=== PATIENT | male | born 1960 | race Caucasian/White ===

== ENCOUNTER 2020-10-08 08:54 | Emergency (ER) | payer MEDICARE, MEDICAID, SELFPAY ==
--- NOTE | ~2020-10-08 | CT_ITS ---
EXAMINATION: CTA LE RT EXAM DATE: 10/08/2020 10:50 INDICATION: infected chronic wound with poor peripheral pulses. Right lower leg skin infection. TECHNIQUE: Spiral CTA right lower extremity was performed following intravenous injection of 150 mL O mnipaque 350. Axial, coronal and sagittal images were reviewed. The dose-length product (DLP) for t his examination was 1238.26 mGy-cm. The exposure was tailored according to patient size (auto mA exp osure control), and iterative reconstruction (ASIR) was used as additional dose reduction technique. There is no prior study for comparison. FINDINGS: Mild aortic and bilateral iliac arterial sclerosis without stenosis. The right femoral, pop liteal arteries are widely patent. There is 3 vessel right runoff to the ankle. Diffuse edema of the calf, and more severe skin thickening circumferentially around the ankle and dalila t. Several surgical clips along the calf and lateral to the lateral malleolus. There are no bony eros ions identified. No focal drainable abscess. No right knee joint extremity. Reactive right inguinal, pelvic lymphadenopathy. Left nephrolithiasis. IMPRESSION: 1. Mild proximal arteriosclerosis. No stenosis, 3 vessel runoff to the right foot. 2. Severe right ankle, foot cellulitis. Reviewed, dictated and finalized at location A. IMPRESSION: 1. Mild proximal arteriosclerosis. No stenosis, 3 vessel runoff to the right f oot. 2. Severe right ankle, foot cellulitis.
[2020-10-08 09:00] VITALS: BP 120/91; PULSE 115; RESP 16; TEMP 36.6; O2SAT 99
--- NOTE | 2020-10-08 09:56 | ED.GENADULT ---
HPI - General Adult General Chief complaint: Extremity Injury, Lower Stated complaint: Right leg pain Time Seen by Provider: 10/08/20 09:00 Source: patient and family Mode of arrival: ambulatory Limitations: no limitations History of Present Illness HPI narrative: Torrey is a 60M with a PMH of an unknown cardiac arrhythmia, CAD, CHF, HTN, COPD, DMII, that presented to clinic with worsening pain, tenderness and exudate from a chronic wound in his right lower extremity. He has had the wound for 2-3 years. He is unsure of the cause. When asked if it is a venous ulcer, arterial ulcer or diabetic wound he just says it had a fungal infection. He can give little history of the wound. However, the wound has appeared worse over the past two weeks with increasing size and exudate. Over the last few days it has has become friable and more painful. He says the leg is its normal size. No CP, SOB, fevers, chills, nausea or vomiting. Related Data Home Medications Medication Instructions Recorded Confirmed albuterol sulfate 2 puff INHALATION PRN 10/08/20 10/08/20 buspirone 30 mg PO BID 10/08/20 10/08/20 carvedilol 25 mg PO BID 10/08/20 10/08/20 citalopram 20 mg PO DAILY 10/08/20 10/08/20 digoxin 250 mcg PO DAILY 10/08/20 10/08/20 furosemide 40 mg PO DAILY 10/08/20 10/08/20 hydrocodone-acetaminophen 1 tablet PO PRN 10/08/20 10/08/20 lisinopril 40 mg PO DAILY 10/08/20 10/08/20 metformin 500 mg PO BID 10/08/20 10/08/20 rivaroxaban [Xarelto] 20 mg PO DAILY 10/08/20 10/08/20 Allergies Allergy/AdvReac Type Severity Reaction Status Date / Time No Known Allergies Allergy Verified 10/08/20 09:35 Review of Systems Constitutional: Constitutional: Reports no additional constitutional complaints, Denies chills and Denies fever(s) Eyes: Eyes: Reports no additional eye complaints ENT: Reports system reviewed and no additional complaints, except as documented Cardiovascular: Cardiovascular: Reports no additional cardiovascular complaints Respiratory: Respiratory: Reports no additional respiratory complaints Gastrointestinal: Gastrointestinal: Reports no additional gastrointestinal complaints Genitourinary: Genitourinary: Reports no additional male genitourinary complaints Musculoskeletal: Musculoskeletal: Reports no additional musculoskeletal complaints Integumentary/Breasts: Skin/Breast: Reports as per HPI Neurologic: Reports system reviewed and no additional complaints, except as documented Psychiatric: Psychiatric: Reports no additional psychiatric complaints Endocrine: Endocrine: Reports no additional endocrine complaints Hematologic/Lymphatic: Hematologic/Lymphatic: Reports no additional hematologic/lymphatic complaints Allergic/Immunologic: Allergic/Immunologic: Reports no additional allergic/immunologic complaints [facility] Social History Social History Substance use type: amphetamines Exam Const: General: no acute distress and alert; No confusion Orientation/consciousness: patient oriented x3 Limitations: No altered mental status HENMT: Head: normal to inspection Other: atrauamtic Eyes: Conjunctivae: conjunctivae normal Pupils: Equal, round and reactive pupils present Neck: Neck: normal visual inspection Chest: Chest palpation & inspection: normal inspection of the chest Resp: Effort & Inspection: normal respiratory effort Auscultation: clear to auscultation bilaterally Cardio: Rate: regular rate Rhythm: regular rhythm GI: Inspection: non-distended GI Palp: Yes Soft to palpation, No Tenderness to palpation present (GI) and No Guarding due to palpation present (GI) Back/Spine/Pelvis: Back: no CVA tenderness Skin: Other: On the right lower extremity there is a large circumferential wound. It starts distal to the malleoli, covers parts of both and wraps completely around. The wound covers the lower extremity circumferentially up the mid calf. Some of the wound
[2020-10-08 09:57] LABS: Basophils Absolute Auto 0.07 K/mm3 (0.00-0.10); Basophils Percent Auto 0.8 % (0.0-1.0); Eosinophils Absolute Auto 0.15 K/mm3 (0.02-0.50); Eosinophils Percent Auto 1.8 % (1.0-6.0); Hematocrit 34.8 % (40.0-54.0); Hemoglobin 9.9 g/dL (14.0-18.0); Immature Granulocyte Absolute 0.04 K/mm3 (0.00-0.00); Immature Granulocyte Percent A 0.5 % (0.0-0.0); Lymphocytes Percent Auto 18.2 % (18.0-42.0); Mean Corpuscular HGB Conc 28.4 g/dL (32.0-36.0); Mean Corpuscular Hemoglobin 18.7 pg (27.0-31.0); Mean Corpuscular Volume 65.8 fL (78.0-102.0); Mean Platelet Volume 9.1 fl (8.7-11.0); Monocytes Absolute Auto 0.67 K/mm3 (0.10-0.90); Monocytes Percent Auto 8.1 % (2.0-11.0); Neutrophils Absolute Auto 5.8 K/mm3 (1.7-7.2); Neutrophils Percent Auto 70.6 % (50.0-70.0); Platelet Count Result 432 K/mm3 (150-420); Red Blood Count 5.29 M/mm3 (4.70-6.10); White Blood Count 8.3 K/mm3 (4.8-10.8)
[2020-10-08] MEDS: HYDROcodone/acetaminophen (*CRX) 5-325 MG TABLET 1 TAB PO ×2 (10:01→13:25)
[2020-10-08 10:13] LABS: Alanine Aminotransferase 17 U/L (16-63); Albumin Level 2.6 g/dL (3.4-5.0); Alkaline Phosphatase 89 U/L (46-116); Anion Gap 9 mmol/L (8-16); Aspartate Amino Transferase 14 U/L (15-37); Bilirubin,Total 0.3 mg/dL (0.00-1.00); Blood Urea Nitrogen 30 mg/dL (7-18); Calcium 8.3 mg/dL (8.5-10.1); Carbon Dioxide 28 mmol/L (21-32); Chloride 99 mmol/L (98-108); Estimated CRCL calculation 61 ml/min; Estimated Glomerular Filt Rate > 60; Glucose 174 mg/dL (70-99); Osmolality Calculated 292 mOsm/kg (285-295); Sodium 136 mmol/L (136-145); Total Protein 7.2 g/dL (6.4-8.2)
[2020-10-08] MEDS: LIDOCAINE HCL 1% LOCAL INJ 20 ML VIAL (11:45)
[2020-10-08] MEDS: KCL 20 MEQ/SW 100 ML 100 ML 50 MEQ IVPB (13:00)
--- NOTE | 2020-10-08 13:12 | PC.NURSE ---
lunch tray provided
--- NOTE | 2020-10-08 13:51 | PC.NURSE ---
pt admits to using methamphetamine several times per week
[2020-10-08 15:00] VITALS: BP 143/90; PULSE 100; RESP 18; O2SAT 97
[2020-10-08 17:13] LABS: SARS-CoV-2 Ag Negative (Negative)
[2020-10-08 17:26] VITALS: BP 127/84; PULSE 113; RESP 16; TEMP 36.6; O2SAT 99
--- NOTE | 2020-10-08 17:27 | PC.NURSE ---
1618 telephone report provided to Ezequiel Milan at [facility] in [place]. gbaas paged out at 1863. room G260 provided by Kayli after negative COVID result was reported
[2020-10-08 18:40] VITALS: BP 124/91; PULSE 111; RESP 15; O2SAT 100
== END 2020-10-08 18:40 | disposition short-term general hospital (02) ==
PROVIDERS: Emergency Provider Family Medicine; PCP Nurse Practitioner Family
DX: S81.801A Unspecified open wound, right lower leg, initial encounter (principal); L03.115 Cellulitis of right lower limb; Z20.822 Contact with and (suspected) exposure to COVID-19
CPT/HCPCS: 36415; 73706; 80053; 85025; 87040; 87070; 87075; 87077; 87205; 87426; 96365; 96366; 99285; A9270; C9803; J2543; J3480; J7030; Q9967

== ENCOUNTER 2021-01-05 09:10 | Emergency (ER) | payer MEDICARE, MEDICAID, SELFPAY ==
--- NOTE | ~2021-01-05 | XR_ITS ---
EXAMINATION: XR chest 1V portable DATE: 01/05/2021 10:43 INDICATION: Vomiting. Fever. Midsternal chest pain. TECHNIQUE: A single frontal view of the chest was obtained on 2 radiographs. COMPARISON: None. FINDINGS: There is no pneumonia, pleural effusion, or pneumothorax. Cardiomegaly is noted. IMPRESSION: 1. Cardiomegaly. Reviewed, dictated and finalized at location B. IMPRESSION: 1. Cardiomegaly.
[2021-01-05 09:10] VITALS: BP 123/87; PULSE 81; RESP 20; TEMP 36.4; O2SAT 100
--- NOTE | 2021-01-05 09:11 | ECG_ITS ---
Measurements Intervals [place] Rate: 105 P: [place]: 0 QRS: 13 QRSD: 118 T: 240 QT: 351 QTc: 464 Interpretive Statements ATRIAL FIBRILLATION WITH RAPID VENTRICULAR RESPONSE INTRAVENTRICULAR CONDUCTION DELAY POSSIBLE LEFT VENTRICULAR HYPERTROPHY ST-T WAVE ABNORMALITY IN LATERAL LEADS- CONSIDER ISCHEMIA BASELINE ARTIFACT- II, III, AVR, AVL,A VF ABNORMAL ECG Electronically Signed On 01-05-2021 9:38:19 CDT by Nish Lock D.O.
--- NOTE | 2021-01-05 09:33 | ED.WEAKNESS ---
HPI - Weakness General Chief complaint: Wound/Laceration Stated complaint: AMBULANCE Time Seen by Provider: 01/05/21 09:11 Source: patient and EMS Mode of arrival: EMS Limitations: no limitations History of Present Illness HPI Narrative: 60-year-old man with a history of type 2 diabetes, congestive heart failure, coronary artery disease and atrial fibrillation brought to the emergency department by EMS after the patient called because he was weak and unable to stand due to bilateral leg pain. He states the wounds on his legs are much worse over the last 2 days and he has had fever, nausea and vomiting during that time. Patient states he has also had cough and cold symptoms but denies abdominal pain, dysuria chest pain or worsening shortness of breath. He states he was ambulating easily before 2 days ago. MD Complaint: generalized weakness Onset (ago): day(s) (3) Duration: constant and progressively worsening Location: generalized Migration: none Relieving factors: none Exacerbating factors: none Associated symptoms: fever/chills and nausea/vomiting Related Data Home Medications Medication Instructions Recorded Confirmed albuterol sulfate 2 puff INHALATION PRN 10/08/20 01/05/21 buspirone 30 mg PO BID 10/08/20 01/05/21 carvedilol 25 mg PO BID 10/08/20 01/05/21 citalopram 20 mg PO DAILY 10/08/20 01/05/21 digoxin 250 mcg PO DAILY 10/08/20 01/05/21 furosemide 40 mg PO DAILY 10/08/20 01/05/21 lisinopril 40 mg PO DAILY 10/08/20 01/05/21 metformin 500 mg PO BID 10/08/20 01/05/21 rivaroxaban [Xarelto] 20 mg PO DAILY 10/08/20 01/05/21 Allergies Allergy/AdvReac Type Severity Reaction Status Date / Time No Known Allergies Allergy Verified 10/08/20 09:35 Review of Systems Review of Systems: All systems reviewed & are unremarkable except as noted in HPI and below Constitutional: Constitutional: Denies chills, Reports fever(s) and Reports weakness ENT: Reports nasal congestion and Denies sore throat Cardiovascular: Cardiovascular: Denies chest pain and Denies radiating jaw, neck or arm pain Respiratory: Respiratory: Reports cough and Reports dyspnea (Chronic) Gastrointestinal: Gastrointestinal: Denies abdominal pain, Reports nausea and Reports vomiting Genitourinary: Genitourinary: Denies dysuria and Denies urinary frequency Musculoskeletal: Musculoskeletal: Reports as per HPI, Denies back pain, Denies arthralgias and Denies joint swelling Integumentary/Breasts: Skin/Breast: Denies pruritus, Denies erythema and Denies rash Neurologic: Denies vertigo, Denies dizziness, Denies syncope, Denies focal weakness and Denies numbness Hematologic/Lymphatic: Hematologic/Lymphatic: Reports easy bleeding and Reports easy bruising Allergic/Immunologic: Allergic/Immunologic: Denies lip swelling and Denies throat swelling [facility] Past Medical History Medical History (Updated 01/05/21 @ 11:55 by Rikki Clarke MD) Atrial fibrillation Congestive heart failure COPD (chronic obstructive pulmonary disease) Coronary artery disease Type 2 diabetes mellitus Social History Social History (Updated 01/05/21 @ 09:53 by Rikki Clarke MD) Smoking status: Former smoker Alcohol intake: former Substance use: current Substance use type: amphetamines Living arrangements: alone Exam Const: General: alert and ill appearing chronically Orientation/consciousness: patient oriented x3 Limitations: no limitations Other: Mild acute distress. HENMT: Head: normal to inspection Face and sinus: normal facial exam Mouth: Yes moist mucous membranes Throat: posterior oropharynx normal Eyes: Conjunctivae: conjunctivae normal Pupils: Equal, round and reactive pupils present EOM: EOMs intact bilaterally Resp: Effort & Inspection: normal respiratory effort and not labored Auscultation: clear to auscultation bilaterally, no rales, no rhonchi and wheezes (Few late expiratory) Cardio: Rate: tachycardic Rhythm: abnormal rhythm irreg
[2021-01-05] MEDS: MORPHINE SULFATE (*CRX) 2 MG/ML INJ IV PUSH (09:43)
[2021-01-05] MEDS: SODIUM CHLORIDE 0.9% IV 1,000 ML 999 ML IV CONT (09:43)
[2021-01-05 09:44] LABS: Basophils Absolute Auto 0.08 K/mm3 (0.00-0.10); Basophils Percent Auto 0.7 % (0.0-1.0); Eosinophils Absolute Auto 0.04 K/mm3 (0.02-0.50); Eosinophils Percent Auto 0.4 % (1.0-6.0); Hematocrit 38.7 % (40.0-54.0); Hemoglobin 10.9 g/dL (14.0-18.0); Immature Granulocyte Absolute 0.06 K/mm3 (0.00-0.00); Immature Granulocyte Percent A 0.5 % (0.0-0.0); Lymphocytes Absolute Auto 1.83 K/mm3 (1.10-4.50); Lymphocytes Percent Auto 16.2 % (18.0-42.0); Mean Corpuscular HGB Conc 28.2 g/dL (32.0-36.0); Mean Corpuscular Hemoglobin 18.9 pg (27.0-31.0); Mean Platelet Volume 9.1 fl (8.7-11.0); Monocytes Absolute Auto 0.74 K/mm3 (0.10-0.90); Monocytes Percent Auto 6.6 % (2.0-11.0); Neutrophils Absolute Auto 8.5 K/mm3 (1.7-7.2); Neutrophils Percent Auto 75.6 % (50.0-70.0); Platelet Count Result 496 K/mm3 (150-420); Red Blood Count 5.78 M/mm3 (4.70-6.10); Red Cell Distribution Width 20.4 % (11.6-14.4); White Blood Count 11.3 K/mm3 (4.8-10.8)
[2021-01-05 09:59] LABS: INR 1.1; Partial Thromboplastin Time 26.2 SEC (23.90-30.70); Prothrombin Time 11.4 Seconds (9.50-12.10)
[2021-01-05 10:02] LABS: Lactic Acid Reflex 2.4 mmol/L (0.4-2.0)
[2021-01-05 10:03] LABS: Alanine Aminotransferase 24 U/L (16-63); Albumin Level 3.1 g/dL (3.4-5.0); Alkaline Phosphatase 97 U/L (46-116); Anion Gap 18 mmol/L (8-16); Aspartate Amino Transferase 19 U/L (15-37); Bilirubin,Total 0.4 mg/dL (0.00-1.00); Blood Urea Nitrogen 44 mg/dL (7-18); CRP 6.4 mg/dL (0.0-0.9); Carbon Dioxide 20 mmol/L (21-32); Chloride 97 mmol/L (98-108); Estimated Glomerular Filt Rate 31; Glucose 113 mg/dL (70-99); Influenza Control Valid (Valid); Osmolality Calculated 292 mOsm/kg (285-295); Potassium 3.4 mmol/L (3.5-5.1); Sodium 135 mmol/L (136-145); Total Protein 8.3 g/dL (6.4-8.2); Troponin I 15.1 ng/L (0.00-60.4)
[2021-01-05 10:04] LABS: SARS-CoV-2 Ag Negative (Negative)
[2021-01-05] MEDS: ASPIRIN 81 MG CHEWABLE TABLET 324 MG PO (10:10)
[2021-01-05 10:36] LABS: NT Pro B Type Natriuretic Pept 17814 pg/mL (0-125)
[2021-01-05 10:45] VITALS: BP 116/89; PULSE 99; O2SAT 100
--- NOTE | 2021-01-05 11:11 | PC.NURSE ---
CALL PLACED TO [facility], TRANSFER DECLINED - CALL PLACED TO [facility] FOR POSSIBLE TRANSFER - PT REFUSING URINE SAMPLE
--- NOTE | 2021-01-05 12:13 | PC.NURSE ---
PT HAS BEEN ACCEPTED AT [facility] - WILL AWAIT BED ASSIGNMENT
[2021-01-05 12:16] VITALS: BP 138/62; PULSE 92; O2SAT 100
[2021-01-05 12:35] LABS: Reflex Lactic Acid Yes or No Add Lactic
[2021-01-05 12:54] LABS: Troponin I 14.6 ng/L (0.00-60.4)
[2021-01-05 13:18] LABS: Lactic Acid 1.5 mmol/L (0.4-2.0)
[2021-01-05 13:20] VITALS: BP 138/63; PULSE 92; RESP 17; O2SAT 100
[2021-01-05] MEDS: MORPHINE SULFATE (*CRX) 4 MG/ML INJ (13:39)
[2021-01-05 13:41] LABS: Appearance Urine Clear (Clear); Bilirubin Urine Negative (Negative); Color Urine Light Yellow (Yellow); Glucose Urine UA Negative (Negative); Ketones Urine Negative (Negative); Leukocyte Esterase Ur Negative LEU/UL (Negative); Nitrate Urine Negative (Negative); Protein Urine Trace (Negative); Urobilinogen Urine 0.2 mg/dL (0.2-1.0)
--- NOTE | 2021-01-05 13:44 | PC.NURSE ---
SOWMYA LOPEZ FOR 4 MG MORPHINE GIVEN
[2021-01-05 13:54] LABS: Amphetamine Screen Urine Positive (Negative); Barbiturate Screen Urine Negative (Negative); Benzodiazepines Screen Urine Negative (Negative); Cannabinoid Screen Urine Negative (Negative); Cocaine Screen Urine Negative (Negative); Methadone Screen Urine Negative (Negative); Opiate Screen Urine Positive (Negative); Phencyclidine Screen Urine Negative (Negative)
[2021-01-05 14:25] LABS: Add Urine Microscopic? YES; Blood Urine Trace-Intact (Negative); Squamous Epithelial Cell Urine Few /hpf (Few); WBC Urine 0-3 /hpf (0-3)
[2021-01-05 14:26] LABS: Bacteria Urine 2+ /hpf
[2021-01-05 14:27] LABS: Other Sediment Urine Spermatazoa /hpf
== END 2021-01-05 13:55 | disposition short-term general hospital (02) ==
PROVIDERS: Emergency Provider Emergency Medicine; PCP Nurse Practitioner Family
DX: L03.119 Cellulitis of unspecified part of limb (principal); N17.9 Acute kidney failure, unspecified; R07.89 Other chest pain; E11.9 Type 2 diabetes mellitus without complications; I50.9 Heart failure, unspecified; I25.10 Atherosclerotic heart disease of native coronary artery without angina pectoris; I48.91 Unspecified atrial fibrillation; Z79.899 Other long term (current) drug therapy; Z20.822 Contact with and (suspected) exposure to COVID-19
CPT/HCPCS: 36415; 71045; 80053; 80307; 81001; 83605; 83880; 84484; 85025; 85610; 85730; 86140; 87040; 87070; 87147; 87205; 87426; 87804; 93005; 96361; 96365; 96375; 96376; 99285; A9270; C9803; J0696; J2270; J7030

== ENCOUNTER 2021-01-23 12:32 | Emergency (ER) | payer MEDICARE, MEDICAID, SELFPAY ==
--- NOTE | ~2021-01-23 | CT_ITS ---
EXAMINATION: CT brain wo con EXAM DATE: 01/23/2021 13:00 INDICATION: Unresponsive episode. TECHNIQUE: Spiral CT of the head was performed without contrast. Axial, coronal and sagittal images were reviewed. The dose-length product (DLP) for this examination was 1210.67 mGy-cm. The exposure was tailored according to patient size, and iterative reconstruction (ASIR) was used as additional do se reduction technique. There is no prior study for comparison. FINDINGS: There is no acute intraparenchymal hemorrhage. No evidence of intraparenchymal brain mass lesion. No evidence of acute infarction. Please note that initial head CT has limited sensitivity f or small or acute infarctions. There is mild periventricular and subcortical hypodensity, nonspecific but probably related to small vessel ischemic disease. There is mild prominence of the sulci and v entricles related to cerebral atrophy. There is intracranial carotid arteriosclerosis. There are n o extra-axial collections. There is no mass effect or midline shift. The orbits are unremarkable. Soft tissue is unremarkable. The visualized sinuses and mastoid air cells are well aerated. IMPRESSION: 1. No acute intracranial findings. 2. Chronic age related findings. Reviewed, dictated and finalized at location B.
--- NOTE | ~2021-01-23 | CT_ITS ---
EXAMINATION: CT abdomen pelvis w con EXAM DATE: 01/23/2021 14:45 INDICATION: AMS, pain with leg movement AMS, Pain With Leg Movement ,Unresponsive. TECHNIQUE: Spiral CT of the abdomen and pelvis was performed following intravenous injection of 100 m L Omnipaque 350. Axial, coronal and sagittal images of the abdomen and pelvis were reviewed. The do se-length product (DLP) for this examination was 1346.16 mGy-cm. The exposure was tailored according to patient size (auto mA exposure control), and iterative reconstruction (ASIR) was used as addition al dose reduction technique. There is no prior study for comparison. FINDINGS: The liver, spleen, adrenal glands and pancreas are unremarkable. Gallbladder is unremarkab le. No biliary obstruction. Portal and splenic veins are patent. Kidneys enhance symmetrically. T here is no hydronephrosis. Numerous left renal cysts up to about 1.5 cm. The prostate is unremarkabl e. there is Dubon catheter within the bladder. Bladder wall thickening, acute or chronic cystitis. Several borderline sized right inguinal, pelvic lymph nodes probably reactive. There is mild scatter ed arteriosclerotic disease. There are no findings to suggest appendicitis. The stomach and small bowel are unremarkable. There is expected amount of colonic stool. No free intraperitoneal gas. There is cardiomegaly. The johnathan g bases are unremarkable. There are no osteoblastic or osteolytic lesions identified. There is front line supervisor edmond bilateral L5 spondylolysis with grade 2 anterolisthesis L5 on S1 and moderate to severe disc dise ase. At L4-5 there is grade 1 retrolisthesis with moderate to severe disc disease. There is severe le ft hip osteoarthritis. IMPRESSION: 1. No acute intra-abdominal findings. 2. Multiple large left calyceal stones. 3. Bladder wall thickening, acute or chronic cystitis. Dubon in position. 4. L5 spondylolysis, grade 2 anterolisthesis. 5. Severe left hip osteoarthritis. 6. Cardiomegaly. Reviewed, dictated and finalized at location B.
--- NOTE | ~2021-01-23 | XR_ITS ---
EXAMINATION: XR chest 1V portable DATE: 01/23/2021 13:27 INDICATION: Shortness of breath. Altered mental status. TECHNIQUE: frontal view of the chest was obtained. COMPARISON: Chest radiograph dated 01/05/2021 FINDINGS: New mild elevation of the left hemidiaphragm. Lungs remain clear with no focal airspace opacities, pu lmonary edema, pleural effusion or pneumothorax. Cardiomegaly. Mediastinal silhouette is normal. Mode rate degenerative skeletal changes at the bilateral shoulders. IMPRESSION: 1. New mild elevation left hemidiaphragm. 2. Cardiomegaly. Reviewed, dictated and finalized at location A.
[2021-01-23 12:32] VITALS: PULSE 96; RESP 10; TEMP 35.9; O2SAT 100
[2021-01-23] MEDS: SODIUM CHLORIDE 0.9% IV 1,000 ML 999 ML IV CONT (12:33)
--- NOTE | 2021-01-23 12:33 | ECG_ITS ---
Measurements Intervals [place] Rate: 102 P: [place]: 0 QRS: 46 QRSD: 122 T: -71 QT: 383 QTc: 500 Interpretive Statements ATRIAL FIBRILLATION WITH RAPID VENTRICULAR RESPONSE INTRAVENTRICULAR CONDUCTION DELAY DELAYED PRECORDIAL R/S TRANSITION ST-T WAVE ABNORMALITY IN ANTEROLAT/INF LEADS- CONSIDER ISCHEMIA BASELINE ARTIFACT- I, II, III, AVR, AVL, AVF, V1-V6 ABNORMAL ECG Electronically Signed On 01-23-2021 17:07:57 CDT by Nish Lock D.O.
[2021-01-23 12:40] VITALS: BP 102/76; PULSE 96; RESP 10; O2SAT 100
--- NOTE | 2021-01-23 12:41 | ED.AMS ---
HPI - Altered Mental Status General Chief Complaint: Altered Mental Status Stated Complaint: AMBULANCE Time Seen by Provider: 01/23/21 12:32 Source: EMS Mode of arrival: EMS Limitations: altered mental status History of Present Illness HPI narrative: 61-year-old man with a history of type 2 diabetes, hypertension, atrial fibrillation and methamphetamine use brought to the emergency department by EMS today after home health nurse found him with altered mental status namely poorly responsive. He would only withdraw to pain. EMS stated that after he received 4 mg of naloxone the patient seemed to wake up and become more Combative, yet still unintelligible. Last known well as 4:00 a.m. today. Patient was seen here on January 05 and transferred to [facility] for bilateral lower extremity wounds that appeared infected. complaint: altered mental status Onset (ago): hour(s) Severity: severe Consistency of symptoms: constant Context: drug abuse, diabetes and other ( Chronic lower extremity wounds) Treatments prior to arrival: IV fluid and other ( naloxone) Related Data Home Medications Medication Instructions Recorded Confirmed albuterol sulfate 2 puff INHALATION PRN 10/08/20 01/23/21 buspirone 30 mg PO BID 10/08/20 01/23/21 carvedilol 25 mg PO BID 10/08/20 01/23/21 citalopram 20 mg PO DAILY 10/08/20 01/23/21 digoxin 250 mcg PO DAILY 10/08/20 01/23/21 furosemide 40 mg PO DAILY 10/08/20 01/23/21 lisinopril 40 mg PO DAILY 10/08/20 01/23/21 metformin 500 mg PO BID 10/08/20 01/23/21 rivaroxaban [Xarelto] 20 mg PO DAILY 10/08/20 01/23/21 Allergies Allergy/AdvReac Type Severity Reaction Status Date / Time No Known Allergies Allergy Verified 10/08/20 09:35 Review of Systems Review of Systems: ROS unobtainable: Yes unobtainable due to mental status PMFSH Past Medical History Medical History (Updated 01/23/21 @ 23:10 by Rikki Clarke MD) Atrial fibrillation Chronic anticoagulation Congestive heart failure COPD (chronic obstructive pulmonary disease) Coronary artery disease Type 2 diabetes mellitus Social History Social History Smoking status: Former smoker Alcohol intake: former Substance use: current Substance use type: amphetamines Exam Const: General: healthy appearing Limitations: no limitations Other: moderate acute distress. Patient follows directions including squeezing both hands, raising arms and raising legs individually. Patient attempts to answer verbal questions however has mostly unintelligible. HENMT: Ears: external ears normal, TM's normal bilaterally and EAC's normal Face and sinus: normal facial exam Mouth: Yes dry mucous membranes Throat: posterior oropharynx normal Eyes: Other: pupils 2 mm and sluggish bilaterally Chest: Chest palpation & inspection: normal inspection of the chest Resp: Effort & Inspection: labored ( Mildly) and no retractions Auscultation: no rales, no rhonchi and no wheezes Cardio: Rate: tachycardic Rhythm: abnormal rhythm regularly irregular GI: GI Palp: Yes Soft to palpation and No Tenderness to palpation present (GI) Skin: General skin exam: no jaundice and pallor Neuro: General: moves all extremities, no focal motor deficits and CN's II-XI intact bilaterally Speech: Abnormal speech present slurred Extrem: General: edema ( 1 to 2+ pedal) bilateral Psych: Appearance: grossly normal and well kempt Affect: Anxious affect present Course Course Emergency Course: 1530: Discussed findings with Dr. Carpenter, neurology/stroke physician at [facility]. Stated that there is low likelihood, given his findings and his last normal, that he would benefit from intervention and thus was not a good candidate for transfer. [facility], [facility], [facility], and [facility] system have all told us they have no beds. 1800: Patient has become much more active and is c
[2021-01-23 13:09] LABS: Basophils Absolute Auto 0.04 K/mm3 (0.00-0.10); Basophils Percent Auto 0.8 % (0.0-1.0); Eosinophils Absolute Auto 0.06 K/mm3 (0.02-0.50); Eosinophils Percent Auto 1.2 % (1.0-6.0); Hemoglobin 9.7 g/dL (14.0-18.0); Immature Granulocyte Absolute 0.02 K/mm3 (0.00-0.00); Immature Granulocyte Percent A 0.4 % (0.0-0.0); Lymphocytes Absolute Auto 0.94 K/mm3 (1.10-4.50); Lymphocytes Percent Auto 19.1 % (18.0-42.0); Mean Corpuscular HGB Conc 28.5 g/dL (32.0-36.0); Mean Corpuscular Hemoglobin 21.2 pg (27.0-31.0); Mean Corpuscular Volume 74.2 fL (78.0-102.0); Mean Platelet Volume 9.2 fl (8.7-11.0); Monocytes Absolute Auto 0.71 K/mm3 (0.10-0.90); Monocytes Percent Auto 14.5 % (2.0-11.0); Neutrophils Absolute Auto 3.1 K/mm3 (1.7-7.2); Platelet Count Result 272 K/mm3 (150-420); Red Blood Count 4.58 M/mm3 (4.70-6.10); Red Cell Distribution Width 27.9 % (11.6-14.4); White Blood Count 4.9 K/mm3 (4.8-10.8)
[2021-01-23 13:13] LABS: Add Urine Microscopic? NO; Appearance Urine Clear (Clear); Bilirubin Urine Negative (Negative); Blood Urine Negative (Negative); Color Urine Light Yellow (Yellow); Glucose Urine UA Negative (Negative); Ketones Urine Negative (Negative); Leukocyte Esterase Ur Negative LEU/UL (Negative); Nitrate Urine Negative (Negative); Protein Urine Negative (Negative); Specific Grav Ur 1.025 (1.010-1.020); Urobilinogen Urine 0.2 mg/dL (0.2-1.0)
[2021-01-23 13:24] LABS: Amphetamine Screen Urine Positive (Negative); Barbiturate Screen Urine Negative (Negative); Benzodiazepines Screen Urine Negative (Negative); Cannabinoid Screen Urine Negative (Negative); Cocaine Screen Urine Negative (Negative); Methadone Screen Urine Negative (Negative); Opiate Screen Urine Negative (Negative); Phencyclidine Screen Urine Negative (Negative)
[2021-01-23 13:29] LABS: Base Excess ABG -6.2 mmol/L (0-2); HCO3 ABG 18.2 mmol/L (23-29); Oxygen Saturation ABG 97.6 % (95-97); Oxyhemoglobin 96.7 % (94-100); PO2 ABG 129.1 mmHg (80-90); Total Hemoglobin 10.1 g/dL (12.0-18.0); pH ABG 7.37 (7.35-7.45)
[2021-01-23 13:29] LABS: Lactic Acid Reflex 1.6 mmol/L (0.4-2.0)
[2021-01-23 13:30] LABS: Device NASAL CANNULA; Modified Allen's Test Pass; Site Drawn RIGHT RADIAL
[2021-01-23] MEDS: NALOXONE HCL INJ 2 MG/2 ML AMP IV PUSH (13:38)
[2021-01-23 13:42] LABS: Alanine Aminotransferase 27 U/L (16-63); Albumin Level 2.5 g/dL (3.4-5.0); Alkaline Phosphatase 54 U/L (46-116); Anion Gap 10 mmol/L (8-16); Aspartate Amino Transferase 23 U/L (15-37); Bilirubin,Total 0.2 mg/dL (0.00-1.00); Blood Urea Nitrogen 26 mg/dL (7-18); Calcium 7.9 mg/dL (8.5-10.1); Carbon Dioxide 24 mmol/L (21-32); Chloride 108 mmol/L (98-108); Creatine Kinase 124 U/L (39-308); Estimated Glomerular Filt Rate 53; Ethanol 3 mg/dL (0-6); Glucose 114 mg/dL (70-99); Osmolality Calculated 299 mOsm/kg (285-295); Salicylate 0.8 mg/dL (2.8-20.0); Sodium 142 mmol/L (136-145); Thyroid Stimulating Hormone 3.67 uIU/mL (0.36-3.74); Total Protein 6.2 g/dL (6.4-8.2); Troponin I 11.8 ng/L (0.00-60.4)
[2021-01-23 13:46] LABS: Acetaminophen < 2 ug/mL (10-30)
[2021-01-23 13:48] LABS: NT Pro B Type Natriuretic Pept 2600 pg/mL (0-125)
[2021-01-23] MEDS: SODIUM CHLORIDE 0.9% IV 1,000 ML 200 ML IV CONT (13:51)
[2021-01-23 13:53] LABS: SARS-CoV-2 Ag Positive (Negative)
--- NOTE | 2021-01-23 15:13 | PC.NURSE ---
Phone call received from person stating that she is pts field care manager asking if we have pts maria c. Person on phone told that I was unsure at this time, but that we were looking to find out which home health agency has been caring for pt. Person on phone states she does not know which agency and that she only knows that it is out [place]. When asked who was calling, person on phone states she is pts and her name is Karen Fernández. Call transfered to Dr. Clarke to speak with Karen.
[2021-01-23 15:50] LABS: CRP 5.3 mg/dL (0.0-0.9)
[2021-01-23 15:54] LABS: INR 1.1; Prothrombin Time 11.9 Seconds (9.50-12.10)
[2021-01-23 15:57] LABS: D Dimer 0.81 mg/L (0.19-0.50)
--- NOTE | 2021-01-23 15:58 | PC.NURSE ---
[facility] TRANSFER LINE CONTACTED AT 1509. NO BEDS AVAILABLE, PATIENT PLACED ON WAITLIST BUT TRANSFER LINE STATES TO START LOOKING FOR SOMEWHERE ELSE BECAUSE IT IS UNLIKELY THAT THEY WILL HAVE AN AVAILABILITY ANY TIME SOON. [facility] TRANSFER LINE, GABRIELA, CONTACTED AT 1521. CALL BACK AT [address] [facility] DECLINES TO ACCEPT PATIENT [facility] TRANSFER LINE, TIMOTHY, CONTACTED AT 1530 WHO STATES THERE ARE NO AVAILABLE BEDS IN THE [facility] AND THEY WILL NOT BE ACCEPTING WAIT LIST PATIENTS. [facility] TRANSFER LINE, MARIVEL, CONTACTED AT 1531. DR. JOSE, NEUROLOGIST, SPOKE WITH STEPHEN, DR. LOPEZ. DR. JOSE STATES THERE IS NO INTERVENTION INDICATED AND PATIENT DOES NOT NEED TO BE TRANSFERRED TO U. MAGALY BRAILLE PROOFREADER CONTACTED AT 8185. AWAITING CALL BACK FOR POTENTIAL TRANSFER.
[2021-01-23 16:30] LABS: Troponin I 12.4 ng/L (0.00-60.4)
--- NOTE | 2021-01-23 16:36 | PC.NURSE ---
case mgr at [facility] contacts RN to inform her that patient was discharged with LifeVest for ejection fraction of 15%. pt did not arrive to ED with LifeVest on. RN attempted to contact dray truck driver/roomate Karen to get the LifeVest, voicemail left, awaiting call back. [employer] Shane contacted who states he will attempt to pull reports and contact us back.
--- NOTE | 2021-01-23 16:49 | PC.NURSE ---
SUSI LUNA CONTACTED FOR INFORMATION REGARDING HOME HEALTH CARE AND EVENTS LEADING UP TO TODAYS ER VISIT. AWAITING CALL BACK FROM HOME HEALTH NURSEMIC.
--- NOTE | 2021-01-23 16:50 | PC.NURSE ---
ZOLL METAL STAMPING MACHINE OPERATOR, SABINA, CONTACTED ED AT THIS TIME. SABINA STATES PATIENT HAS WORN LIFEVEST FOR A TOTAL OF 2 HOURS AND 44 MINUTES SINCE RECEIVING IT ON December AND HAS NOT PUT IT BACK ON SINCE December. THEREFORE THERE IS NO DATA OR EVENTS RECORDED TO SEND TO ED. ERP NOTIFIED.
--- NOTE | 2021-01-23 17:08 | PC.NURSE ---
PARKER BARNES RN CONTACTED FOR ER HOLD PLACEMENT. ROOM 206 PROVIDED.
--- NOTE | 2021-01-23 17:23 | PC.NURSE ---
VITAL SIGNS PRINT OUT PLACED IN THE PAPER CHART
[2021-01-23] MEDS: LORazepam INJ (*CRX) 2 MG/ML VIAL 0.5 MG IV PUSH (18:03)
[2021-01-23 18:30] VITALS: BP 130/110; PULSE 115; RESP 19; TEMP 36.2; O2SAT 100
--- NOTE | 2021-01-23 18:38 | PC.NURSE ---
PT TO BE TRANSFERRED TO ROOM 207 ER HOLD WHILE AWAITING BED AT [facility] IMU FLOOR. TELEPHONE REPORT PROVIDED TO PARKER BARNES RN. PT TO BE TRANSFERRED BY STRETCHER WITH ALL BELONGINGS BY RT JUANA.
[2021-01-23 19:24] LABS: Magnesium 1.7 mg/dL (1.8-2.4); Phosphorus 3.3 mg/dL (2.6-4.7)
[2021-01-23 19:39] LABS: Troponin I 13.5 ng/L (0.00-60.4)
[2021-01-23 19:41] LABS: Digoxin < 0.2 ng/mL (0.9-2.0)
--- NOTE | 2021-01-23 21:53 | PC.NURSE ---
Resumed care of patient 1899, patient ER hold to [facility] awaiting a bed. patient responds to name, nonverbal, follows simple commands, on 3 liters oxygen, 98%, vital signs stable, miller catheter intact and 2 peripheral iv's intact, dressings intact to bilateral legs, legs elevated on pillows, will continue to monitor.
[2021-01-23] MEDS: busPIRone HCL 5 MG TABLET 30 MG PO (22:10)
[2021-01-23] MEDS: carvediloL 12.5 MG TABLET 25 MG PO (22:11)
[2021-01-23] MEDS: MAGNESIUM SULF 2 GM/WATER 50ML 2 GM/50 ML BAG IVPB (22:12)
[2021-01-23] MEDS: DEXTROSE 5%/0.9% SOD CHL 1,000 ML 70 ML IV CONT (22:13)
[2021-01-23 23:33] VITALS: BP 103/77; PULSE 105; RESP 20; TEMP 36.6; O2SAT 95
--- NOTE | 2021-01-23 23:55 | PC.NURSE ---
Called [facility] to transport patient to [facility].
--- NOTE | 2021-01-24 00:05 | PC.NURSE ---
Patient going to room 232 at [facility] report given to nurse Brody at [phone], vital signs 103/77, 20, 36.7, 95%, 2 liters per nasal cannula of oxygen. patient alert to self. garbled speech follows simple commands. ambulance called for transport to [place] by charge nurse. will continue to monitor.
--- NOTE | 2021-01-24 00:42 | PC.NURSE ---
Patient telemetry box removed and patient discharged to [facility] at 1230 via EMS.
== END 2021-01-24 00:30 | disposition short-term general hospital (02) ==
LOC: CHSED 16:53 → CHS2ND 19:12
PROVIDERS: Emergency Provider Emergency Medicine; PCP Nurse Practitioner Family
DX: U07.1 COVID-19 (principal); R47.1 Dysarthria and anarthria; Z79.01 Long term (current) use of anticoagulants; I50.9 Heart failure, unspecified; I48.91 Unspecified atrial fibrillation; J44.9 Chronic obstructive pulmonary disease, unspecified; I25.10 Atherosclerotic heart disease of native coronary artery without angina pectoris; E11.9 Type 2 diabetes mellitus without complications; Z87.891 Personal history of nicotine dependence; Z79.899 Other long term (current) drug therapy
CPT/HCPCS: 36415; 36600; 70450; 71045; 74177; 80053; 80162; 80307; 81003; 82550; 82805; 83605; 83735; 83880; 84100; 84443; 84484; 85025; 85380; 85610; 85730; 86140; 87040; 87086; 87426; 93005; 96361; 96365; 96375; 99285; A9270; C9803; J2060; J2310; J3475; J7030; J7042; Q9967

== ENCOUNTER 2021-01-24 01:20 | Inpatient (IN) | payer MEDICARE, MEDICAID, SELFPAY ==
[2021-01-24] VITALS (12 sets, daily range): BP systolic 95–144; BP diastolic 43–118; PULSE 75–114; RESP 16–24; TEMP 36.4–37.3; O2SAT 95–100; BMI 29.6
--- NOTE | 2021-01-24 | ECHO_ITS ---
Patient Info Name: Torrey Fernández Age: 61 years : 1960 Gender: Male Ht: 71 in Wt: 220 lbs BSA: 2.26 m2 HR: 107 bpm BP: 133 / 43 mmHg Heart Rhythm: Atrial Fibrillation Technical Quality: Good Exam Date: 01/24/2021 8:34 AM Exam Location: [facility] Pulmonary Patient Status: Outpatient Admit Date: 01/24/2021 Staff Ordering Physician: Indiana Leiva MD Internal Revenue Service Agent: Yareli Cr [facility] Attending Provider: Luis Diaz MD Referring Physician: Abbie MIGUEL; Exam Type: CA echo doppler color flow Study Info Complete two-dimensional, color flow and Doppler transthoracic echocardiogram is performed. Summary 1. Complete two-dimensional, color flow and Doppler transthoracic echocardiogram is performed. 2. Left ventricular chamber dimension is severely enlarged. 3. Left ventricular systolic function is severely reduced, estimated at 30-35%. 4. Left ventricular septal wall motion is abnormal with septal motion related to bundle branch block. 5. The left ventricular diastolic function is abnormal. 6. Average E' 0.14 suggestive of diastolic dysfunction. 7. Atrial fibrillation. 8. Left atrial chamber dimension is severely enlarged. 9. Right atrial chamber dimension is severely enlarged. 10. There is trace aortic valve regurgitation. 11. The mitral valve has mildly calcified annulus. 12. There is mild to moderate mitral valve regurgitation. 13. There is mild tricuspid valve regurgitation. 14. No pulmonary hypertension, estimated pulmonary arterial systolic pressure is 27 mmHg. 15. There is trace pulmonic regurgitation. Left Ventricle Average E' 0.14 suggestive of diastolic dysfunction. Atrial fibrillation. Left ventricular chamber dimension is severely enlarged. Left ventricular systolic function is severely reduced, estimated at 30-35%. Left ventricular septal wall motion is abnormal with septal motion related to bundle branch block. The left ventricular diastolic function is abnormal. Right Ventricle Right ventricular systolic function is normal and with normal TAPSE 2.3 cm. Right ventricular chamber dimension is normal. Left Atria Left atrial chamber dimension is severely enlarged. Right Atria Right atrial chamber dimension is severely enlarged. Aortic Valve The aortic valve is trileaflet. There is no aortic valve stenosis. There is trace aortic valve regurgitation. Pulmonic Valve There is trace pulmonic regurgitation. Mitral Valve The mitral valve has mildly calcified annulus. There is no mitral valve stenosis. There is mild to moderate mitral valve regurgitation. Tricuspid Valve There is mild tricuspid valve regurgitation. No pulmonary hypertension, estimated pulmonary arterial systolic pressure is 27 mmHg. Pericardium/Pleural There is no pericardial effusion. Inferior Vena Cava Normal inferior vena cava with >50% collapse upon inspiration consistent with normal right atrial pressure, 5 mmHg. Aorta The aortic root size at the sinus of Valsalva is normal. Left Ventricular Outflow Tract Name Value Normal LVOT 2D LVOT Diameter 2.4 cm LVOT Doppler LVOT Peak
--- NOTE | ~2021-01-24 | XR_ITS ---
EXAMINATION: XR chest 1V portable DATE: 01/24/2021 08:19 INDICATION: Transient alteration of awareness. Shortness of breath. TECHNIQUE: frontal view of the chest was obtained. COMPARISON: Chest radiograph dated 01/23/2021 FINDINGS: Cardiomegaly with interval development of pulmonary vascular congestion but without minh pulmonary e gabriel. Persistent elevation of the left hemidiaphragm with mild linear discoid atelectasis in the left lower lung zone. No other airspace opacities, pleural effusion or pneumothorax. IMPRESSION: 1. Cardiomegaly with increasing pulmonary vascular congestion but without minh pulmonary edema. Reviewed, dictated and finalized at location A.
--- NOTE | ~2021-01-24 | MR_ITS ---
EXAMINATION: MR brain/brain stem wo/w con DATE: 01/24/2021 12:38 INDICATION: Transient alteration of awareness and slurred speech. Assess for stroke. TECHNIQUE: Magnetic resonance imaging (MRI) of the brain and brainstem was performed without and with 20 mL Multihance intravenous contrast. Sequences included sagittal and axial T1-weighted SE, axial d iffusion-weighted FS SE, axial T2*-weighted GRE, axial T2-weighted FLAIR, and axial T2-weighted FSE. Postcontrast axial and coronal T1-weighted SE was obtained. Apparent diffusion coefficient (ADC) maps were created. COMPARISON: Head CT dated 01/23/2021 FINDINGS: There are no areas of restricted diffusion to suggest acute infarction. No intracranial hemorrhage or abnormal intracranial mass lesion. Minimal periventricular nonspecific increased T2-weighted signal intensity in the cerebral white matter which is within normal limits for age. There are no intraparen chymal signal abnormalities seen on the other pulse sequences. The ventricles are symmetric and ramy l in size. There are no abnormal extra-axial fluid collections. Flow voids are seen in the cerebral a rteries on the T2-weighted sequences consistent with their expected patency. Visualized orbits and so ft tissues are unremarkable. There are no areas of abnormal enhancement on the post contrast images a lthough postcontrast images are moderately limited by significant amount of motion artifact. IMPRESSION: 1. Normal aging brain. No acute intracranial process. Reviewed, dictated and finalized at location A.
--- NOTE | ~2021-01-24 | MR_ITS ---
EXAMINATION: MR ankle RT wo/w con DATE: 01/25/2021 10:47 INDICATION: Soft tissue infection. Osteomyelitis. TECHNIQUE: Magnetic resonance imaging (MRI) of the right ankle ankle initially planned as a pre and p ostcontrast study was performed without intravenous contrast. The request of the patient the study wa s terminated following acquisition of only the localizer images and axial T1-weighted FS FSE sequence . No intravenous contrast was administered. COMPARISON: Right lower limb CT angiogram dated 10/08/2020 FINDINGS: Very limited study which was terminated prior to obtaining the majority the plan sequences including part to administration of intravenous contrast. A shallow skin ulceration is seen at the medial aspec t of the heel. There is homogeneous T1 marrow fat signal on the channel marketing coordinator localizer images which appears to homogeneously saturated on the axial T1 fat-saturated images with no suggestion of a marrow replac ing process to suggest osteomyelitis. There are few foci of magnetic field artifact associated with m etallic surgical clips on the prior CT. The visualized portions of the flexor and extensor tendons ap pear normal. Joint spaces at the ankle and hindfoot appear normal with no evident joint effusion. IMPRESSION: 1. Very limited study prematurely by the patient but without evident marrow signal changes to suggest osteomyelitis at the posterior tuberosity of the calcaneus underlying a shallow skin ulceration Reviewed, dictated and finalized at location A. IMPRESSION: 1. Very limited study prematurely by the patient but without evident marrow sig nal changes to suggest osteomyelitis at the posterior tuberosity of the calcane us underlying a shallow skin ulceration
--- NOTE | ~2021-01-24 | US_ITS ---
EXAMINATION: US carotid duplex BI DATE: 01/24/2021 13:00 INDICATION: Altered mental status TECHNIQUE: Grayscale, color Doppler, and pulsed Doppler images of the cervical carotid arteries were obtained. The degree of vessel stenosis is placed in one of the following categories: normal, <50%, 5 0-69%, >=70% but less than near-occlusion, near-occlusion, or total occlusion. Note that percent sten osis relative to normal distal artery lumen diameter is indirectly measured from velocity measurement s as described by Louis, et al. Radiology 2003; [id number]. COMPARISON: None. FINDINGS: RIGHT: The right common carotid artery (CCA) peak systolic velocity (PSV) is 74 cm/s. The right internal car otid artery (ICA) PSV is 86 cm/s. The right ICA end-diastolic velocity (EDV) is 14 cm/s. The right IC A/CCA PSV ratio is 1.2. Grayscale and color Doppler images yield an estimate of <50% diameter reducti on from plaque in the ICA. The external carotid artery (ECA) PSV is 76 cm/s. There is antegrade flow in the right vertebral artery. LEFT: The left CCA PSV is 79 cm/s. The left ICA PSV is 75 cm/s. The left ICA EDV is 24 cm/s. The left ICA/C CA PSV ratio is 0.9. Grayscale and color Doppler images yield an estimate of <50% diameter reduction from plaque in the ICA. The ECA PSV is 133 cm/s. There is antegrade flow in the left vertebral artery . IMPRESSION: 1. <50% stenosis from minimal plaque in the right internal carotid artery. 2. <50% stenosis from minimal plaque in the left internal carotid artery. 3. Cardiac arrhythmia is present. Correlate with EKG. Reviewed, dictated and finalized at location A.
--- NOTE | 2021-01-24 01:24 | ECG_ITS ---
Measurements Intervals [place] Rate: 65 P: [place]: 0 QRS: -15 QRSD: 114 T: 145 QT: 343 QTc: 359 Interpretive Statements ATRIAL FIBRILLATION INTRAVENTRICULAR CONDUCTION DELAY ST-T WAVE ABNORMALITY IN LAT/HIGH LAT LEADS- CONSIDER ISCHEMIA BASELINE ARTIFACT- III, AVR, AVL, AVF, V4-V5 ABNORMAL ECG Electronically Signed On 01-24-2021 8:29:05 CDT by Nish Lock D.O.
--- NOTE | 2021-01-24 03:04 | ADMGEN ---
This patient, Torrey Fernández, was admitted to IMU Room 232-01 on 01/24/21 at 0100 as a direct admit from [facility]. Patient/family oriented to hospital policies and general routines including ID bracelet, bed and alarms, visiting hours, pain management, procedures, bathroom and other care routines, personal items, smoking policy, room service/diet, and visiting hours. Information on how to activate the Rapid Response Team has been discussed. Patient/Family are encouraged to report perceived risks to care and to ask questions if they do not understand what they are told or what they should do.
[2021-01-24 03:34] LABS: INR 1.2; Prothrombin Time 14.9 Seconds (11.1-14.7)
[2021-01-24 03:45] LABS: Alanine Aminotransferase 18 U/L (4-50); Albumin Level 2.7 g/dL (3.5-5.1); Alkaline Phosphatase 50 U/L (38-126); Anion Gap 8 mmol/L (8-16); Aspartate Amino Transferase 29 U/L (17-59); Bilirubin,Total 0.1 mg/dL (0.2-1.3); Blood Urea Nitrogen 16 mg/dL (9-20); Calcium 7.7 mg/dL (8.4-10.2); Carbon Dioxide 18 mmol/L (22-30); Chloride 113 mmol/L (98-107); Estimated CRCL calculation 79 ml/min; Estimated Glomerular Filt Rate > 60; Glucose 119 mg/dL (65-110); Magnesium 2.2 mg/dL (1.6-2.3); Phosphorus 2.8 mg/dL (2.5-4.5); Potassium 3.9 mmol/L (3.4-5.0); Sodium 139 mmol/L (137-145)
[2021-01-24 03:46] LABS: Lactic Acid Reflex 0.6 mmol/L (0.7-2.1)
[2021-01-24] MEDS: SODIUM CHLORIDE 0.9% IV 1,000 ML 15 ML IV CONT (04:16)
[2021-01-24 04:30] LABS: Hemoglobin A1C 5.6 % (<5.7)
--- NOTE | 2021-01-24 05:00 | PM.IMHP ---
H&P: HPI History of Present Illness Date/Time: 01/24/21 05:00 Chief Complaint: Altered mental status Narrative: This is a 61-year-old male with past medical history significant for global congestive heart failure ejection fraction on of 8% patient should be on a life vest but according to records patient has only recorded few hours and currently is not wearing it his girlfriend or room made does not know where the vest is. According to his girlfriend last time he was seen in his usual was the night prior in the morning he was difficult to arose and was taken to the emergency in emergency room he was only responsive to painful stimuli preliminary workup was pretty much irrelevant. Then he becomes slightly more responsive body was noted that he had some dysarthria and decision was made to transfer patient over to our hospital for neurology consult. At the time of my visit patient is able to answer questions but is noted that he is having problems pronouncing words he engages in conversation and he answers questions he was able to drink water with now coughing. Patient knows that he is in a hospital however has a garbled speech he can not really tell why he is in the hospital though. Review of Systems Review of Systems: ROS unobtainable: Yes unobtainable due to medical condition (Garbled speech) and unobtainable due to mental status (Patient knows that is in the hospital but does not know why) [facility] Past Medical History Medical History (Updated 01/23/21 @ 23:10 by Rikki Clarke MD) Atrial fibrillation Chronic anticoagulation Congestive heart failure COPD (chronic obstructive pulmonary disease) Coronary artery disease Type 2 diabetes mellitus Family History Family History Other Unknown family medical history Social History Social History Smoking packs per day: 1 Smoking cigarettes per day: 20.0 Years smoked: 15 Smoking pack-years: 15.00 Smoking status: Former smoker Tobacco type: cigarettes Second hand tobacco smoke exposure: Yes Alcohol intake: unknown Substance use: current Substance use type: methamphetamine Spiritual care concerns: No Meds Home Medications and Allergies Home Medications Medication Instructions Recorded Confirmed Type albuterol sulfate 2 puff INHALATION PRN 10/08/20 01/24/21 History buspirone 30 mg PO BID 10/08/20 01/24/21 History carvedilol 25 mg PO BID 10/08/20 01/24/21 History citalopram 20 mg PO DAILY 10/08/20 01/24/21 History digoxin 250 mcg PO DAILY 10/08/20 01/24/21 History furosemide 40 mg PO DAILY 10/08/20 01/24/21 History lisinopril 40 mg PO DAILY 10/08/20 01/24/21 History metformin 500 mg PO BID 10/08/20 01/24/21 History rivaroxaban [Xarelto] 20 mg PO DAILY 10/08/20 01/24/21 History Allergies Allergy/AdvReac Type Severity Reaction Status Date / Time No Known Allergies Allergy Verified 01/24/21 03:15 Vital Signs Vital Signs - 24 hr 01/24/21 01:36 01/24/21 04:00 Temperature 98.3 F 97.6 F Pulse Rate 110 H 106 H Respiratory Rate 20 20 Blood Pressure 144/118 H 133/43 L Pulse Oximetry 98 95 Exam Narrative: Patient is laying in bed Const: General: comfortable, no acute distress, well developed, ill appearing acutely and patient obtunded Nutritional Appearance: average body habitus Orientation/consciousness: oriented to person and oriented to place HENMT: Head: normal to inspection, normocephalic and atraumatic Ears: hearing grossly normal bilaterally General nose exam: Normal external nose present Face and sinus: normal facial exam Mouth: Yes Normal oral and palatal mucosa present Eyes: General: appearance normal, both eyes and all related structures Alignment and Position: alignment normal Sclera: sclerae normal Pupils: Equal, round and reactive pupils present EOM: EOMs intact bilaterally Neck: Neck: normal visual inspection,
[2021-01-24 06:48] LABS: Glucose Point of Care 112 mg/dl (65-105)
[2021-01-24 08:00] LABS: Glucose Point of Care 91 mg/dl (65-105)
[2021-01-24] MEDS: ENOXAPARIN 40 MG/0.4 ML SYRINGE SUB-Q (09:09)
--- NOTE | 2021-01-24 09:52 | PM.IMPN ---
Progress Note: A&P Assessment and Plan (1) Acute encephalopathy: Code(s): G93.40 - Encephalopathy, unspecified Status: Acute Assessment and Plan: This is a 61-year-old man with a history of type 2 diabetes, hypertension, atrial fibrillation, advanced cardiomyopathy with EF < 10, and methamphetamine use brought to the ED by EMS today after home health nurse found him unresponsive. He became slightly more responsive in the ED, was noted to be dysarthric. He continues to use methamphetamine. He was incidentally found to be COVID positive on testing. Unclear etiology Question of ischemic event given dysarthria versus metabolic/toxic encephalopathy Plan for MRI today Neurology consultation Blood and urine cultures pending (2) COPD (chronic obstructive pulmonary disease): Code(s): J44.9 - Chronic obstructive pulmonary disease, unspecified Status: Acute Assessment and Plan: Not currently symptomatic Continue home p.r.n. albuterol (3) Type 2 diabetes mellitus: Code(s): E11.9 - Type 2 diabetes mellitus without complications Status: Acute Assessment and Plan: Continue to monitor Accu-Cheks q.6 hours NPO Resume metformin when he is stable and eating (4) Atrial fibrillation: Code(s): I48.91 - Unspecified atrial fibrillation Status: Acute Assessment and Plan: Will change from home carvedilol to metoprolol for better rate control Continue home digoxin Continue home rivaroxaban for anticoagulation Continue to monitor (5) Congestive heart failure: Qualifiers: Heart failure chronicity: chronic Heart failure type: unspecified Qualified Code(s): I50.9 - Heart failure, unspecified Code(s): I50.9 - Heart failure, unspecified Status: Acute Assessment and Plan: Echocardiogram has been ordered According to prior records ejection fraction of 8% patient had been discharged with Life Vest on and according to Life Vest herbicide service sales representative the only have few hours of recording and patient presented without vest and girlfriend does not know were the life vest is Continue to monitor Continue telemetry (6) Coronary artery disease: Code(s): I25.10 - Atherosclerotic heart disease of [place] coronary artery without angina pectoris Status: Acute Assessment and Plan: Continue home meds (7) COVID-19: Code(s): U07.1 - COVID-19 Status: Acute Assessment and Plan: Chest x-ray is clear Not currently hypoxemic Supportive measures and isolation precautions (8) Hypertension: Code(s): I10 - Essential (primary) hypertension Status: Acute Assessment and Plan: Continue home lisinopril Change carvedilol to metoprolol as above (9) Cellulitis: Code(s): L03.90 - Cellulitis, unspecified Status: Acute Assessment and Plan: He has bilateral lower extremity (leg) ulceration, right leg ulcer is associated with erythema, edema, and tenderness to palpation. Initiate broad-spectrum antibiotics. Obtain MRI to rule out osteomyelitis and better assess the extent of infection Wound care consult Wound culture Additional Plan Code status: Full code DVT prophylaxis: Rivaroxaban Subjective Date/time seen: 01/24/21 09:52 Stable overnight. Was able to be weaned and currently is on room air. Heart rate has been 100-110s and is in atrial fibrillation. Hemodynamically stable. Afebrile. Review of Systems Review of Systems: All systems reviewed & are unremarkable except as noted in HPI and below Exam Narrative: Gen: Alert, NAD Abd: Soft, NT, ND Heart: Irregularly irregular Lungs: CTAB Ext: Trace lower extremity edema Objective Data Vital Signs Vital Signs: Vital Signs - 24 hr 01/24/21 01:10 01/24/21 01:36 01/24/21 02:00 Temperature 98.3 F Pulse Rate 110 H 110 H 112 H Respiratory Rate 20 20 Blood Pressure 144/118 H Pulse Oximetry 98 98 01/24/21 04:00 01/24/21 08:0
--- NOTE | 2021-01-24 10:36 | PCSTNOTE ---
Bedside swallow evaluation completed. Please see ST Inpatient Evaluation for further details and recommendations.
[2021-01-24] MEDS: busPIRone HCL 10 MG TABLET 30 MG PO ×2 (11:28→17:53)
[2021-01-24] MEDS: lisinopriL 20 MG TABLET 40 MG PO (11:28)
[2021-01-24] MEDS: DIGOXIN 250 MCG TABLET PO (11:29)
[2021-01-24] MEDS: CITALOPRAM HYDROBROMIDE 20 MG TABLET PO (11:29)
[2021-01-24] MEDS: METOPROLOL TARTRATE 25 MG TABLET PO (11:30)
[2021-01-24 11:59] LABS: Glucose Point of Care 86 mg/dl (65-105)
--- NOTE | 2021-01-24 14:31 | PCPTNOTE ---
Mike attempted but pt too lethargic to participate. MD in room and states Ok to wait and try tomorrow. RN also aware.
--- NOTE | 2021-01-24 14:32 | WPDNEURCNPN ---
Assessment and Plan Additional Plan multiple comorbid conditions with COVID positive. Treatment at present is supportive and as being done is being continued on rivaroxaban and all other medication MRI has been documented as negative will follow along with you Consult date: 01/26/21 Time Seen: 11:00 HPI: Torrey Fernández is a 61 year old male admitted to the hospital for the complaints of change in the mental status in addition to the ongoing history of 1. Global congestive heart failure with ejection fraction of only 8% and reportedly patient should be on a life vest but at present he is not wearing it and the girlfriend in the room did not know where the vast is he was reportedly difficult to be arose brought to the emergency room where he was only responsive to painful stimuli and then he became somewhat more alert he was noted lead dysarthric at the time of initial evaluation he was having difficulties in pronouncing the words he was able to drink and he knew that he was in the hospital his prior history is consistent with the history of atrial fibrillation with chronic anticoagulation therapy, congestive heart failure, COPD, and type 2 diabetes mellitus. Ears smoke 15 but former smoker not sure about the alcohol intact current substance user is not allergic to any medication initial vital signs were fairly stable and pertinent lab included CBC without leukocytosis hemoglobin of 9.7 platelet count 272, SARS-CoV-2 positive as well as toxicology screen positive for amphetamines Review of Systems Review of Systems: All systems reviewed & are unremarkable except as noted in HPI and below PMFSH Past Medical History Medical History Atrial fibrillation Chronic anticoagulation Congestive heart failure COPD (chronic obstructive pulmonary disease) Coronary artery disease Type 2 diabetes mellitus Family History Family History Other Unknown family medical history Social History Social History Smoking packs per day: 1 Smoking cigarettes per day: 20.0 Years smoked: 15 Smoking pack-years: 15.00 Smoking status: Former smoker Tobacco type: cigarettes Second hand tobacco smoke exposure: Yes Alcohol intake: unknown Substance use: current Substance use type: methamphetamine Spiritual care concerns: No Meds Home Medications and Allergies Home Medications Medication Instructions Recorded Confirmed Type albuterol sulfate 2 puff INHALATION Q4H PRN 10/08/20 01/24/21 History buspirone 30 mg PO BID 10/08/20 01/24/21 History carvedilol 25 mg PO BID 10/08/20 01/24/21 History citalopram 20 mg PO DAILY 10/08/20 01/24/21 History digoxin 250 mcg PO DAILY 10/08/20 01/24/21 History furosemide 40 mg PO DAILY 10/08/20 01/24/21 History lisinopril 40 mg PO DAILY 10/08/20 01/24/21 History metformin 500 mg PO BID 10/08/20 01/24/21 History rivaroxaban [Xarelto] 20 mg PO DAILY 10/08/20 01/24/21 History Allergies Allergy/AdvReac Type Severity Reaction Status Date / Time No Known Allergies Allergy Verified 01/24/21 03:15 Vital Signs Vital Signs - 24 hr 01/24/21 01:10 01/24/21 01:36 01/24/21 02:00 Temperature 36.8 C Pulse Rate 110 H 110 H 112 H Respiratory Rate 20 20 Blood Pressure 144/118 H Pulse Oximetry 98 98 01/24/21 04:00 01/24/21 08:00 01/24/21 11:29 Temperature 36.4 C 36.9 C Pulse Rate 110 H 104 H 91 Respiratory Rate 20 20 Blood Pressure 133/43 L 109/73 Pulse Oximetry 95 99 01/24/21 11:30 01/24/21 12:00 Temperature 36.8 C Pulse Rate 91 98 Respiratory Rate 16 Blood Pressure 110/82 Pulse Oximetry 97 Exam Const: General: cooperative, healthy appearing, comfortable, alert and awake Nutritional Appearance: well nourished Orientation/consciousness: oriented to person and oriented to place Limitations: physical limitations HENMT: Head: normal
[2021-01-24] MEDS: ACETAMINOPHEN 325 MG TABLET 650 MG PO (15:03)
--- NOTE | 2021-01-24 15:05 | PCOTNOTE ---
Attempted OT evaluation; pt. to tired to participate in evaluation. Will attempt again as possible in am.
[2021-01-24 16:33] LABS: Glucose Point of Care 87 mg/dl (65-105)
[2021-01-24] MEDS: RIVAROXABAN 20 MG TABLET PO (17:53)
--- NOTE | 2021-01-24 20:54 | PC.NURSE ---
This patient, Torrey Fernández, was transferred to room 319 on 01/24/21 at 2010. Personal belongings sent with patient. Report given to MARIN Fernandez. Appropriate documentation sent with patient.
[2021-01-25] VITALS (9 sets, daily range): BP systolic 100–121; BP diastolic 55–76; PULSE 71–97; RESP 18–22; TEMP 35.7–37.4; O2SAT 91–99
[2021-01-25 01:06] LABS: Glucose Point of Care 98 mg/dl (65-105)
--- NOTE | 2021-01-25 04:01 | PC.NURSE ---
Pt arrived to room via bed from room 232, tele monitor is placed per orders. Pt is alert and orientated. Resp are even and nonlabored. Bilateral legs are wrapped with kerlix, dressings are dry and intact, miller cath in place and secured to leg, pt remains on room air, call light is in reach and bedalarm is on.
[2021-01-25] MEDS: ACETAMINOPHEN 325 MG TABLET 650 MG PO (06:12)
[2021-01-25 06:47] LABS: Glucose Point of Care 104 mg/dl (65-105)
[2021-01-25 07:07] LABS: Basophils Percent Auto 0.5 % (0.2-1.2); Eosinophils Percent Auto 0.6 % (0-4.4); Hematocrit 33.6 % (42.0-52.0); Hemoglobin 9.3 g/dL (14.0-18.0); Immature Granulocyte Absolute 0.02 K/mm3 (0.00-0.031); Immature Granulocyte Percent A 0.3 % (0-0.5); Lymphocytes Absolute Auto 1.44 K/mm3 (0.9-3.2); Lymphocytes Percent Auto 23.2 % (18.3-44.2); Mean Corpuscular HGB Conc 27.7 g/dl (32-36); Mean Corpuscular Hemoglobin 20.5 pg (26-34); Mean Platelet Volume 9.4 fl (7.4-10.4); Monocytes Absolute Auto 0.7 K/mm3 (0.1-0.6); Monocytes Percent Auto 10.6 % (2.6-8.5); Neutrophils Percent Auto 64.8 % (45.5-73.1); Platelet Count Result 236 k/mm3 (150-375); Red Blood Count 4.54 M/mm3 (4.6-6.20); Red Cell Distribution Width 28.1 % (11.5-14.5); White Blood Count 6.2 K/mm3 (4.5-10.0)
[2021-01-25 08:13] LABS: Glucose Point of Care 89 mg/dl (65-105)
[2021-01-25] MEDS: lisinopriL 20 MG TABLET 40 MG PO (08:47)
[2021-01-25] MEDS: busPIRone HCL 10 MG TABLET 30 MG PO ×2 (08:47→18:03)
[2021-01-25] MEDS: METOPROLOL TARTRATE 25 MG TABLET PO ×2 (08:47→21:56)
[2021-01-25] MEDS: CITALOPRAM HYDROBROMIDE 20 MG TABLET PO (08:51)
[2021-01-25] MEDS: DIGOXIN 250 MCG TABLET PO (08:51)
[2021-01-25] MEDS: LORazepam INJ (*CRX) 2 MG/ML VIAL 0.5 MG IV PUSH (09:42)
--- NOTE | 2021-01-25 09:42 | PM.IMPN ---
Progress Note: A&P Assessment and Plan (1) Acute encephalopathy: Code(s): G93.40 - Encephalopathy, unspecified Status: Acute Assessment and Plan: This is a 61-year-old man with a history of type 2 diabetes, hypertension, atrial fibrillation, advanced cardiomyopathy with EF < 15%, and methamphetamine use brought to the ED by EMS today after home health nurse found him unresponsive. He became slightly more responsive in the ED, was noted to be dysarthric. He continues to use methamphetamine. He was incidentally found to be COVID positive on testing. Unclear etiology Question of ischemic event given dysarthria versus metabolic/toxic encephalopathy Brain MRI with no significant findings Carotid ultrasound with no significant stenosis Neurology consultation appreciated Blood and urine cultures negative so far (2) COPD (chronic obstructive pulmonary disease): Code(s): J44.9 - Chronic obstructive pulmonary disease, unspecified Status: Acute Assessment and Plan: Not currently symptomatic Continue home p.r.n. albuterol (3) Type 2 diabetes mellitus: Code(s): E11.9 - Type 2 diabetes mellitus without complications Status: Acute Assessment and Plan: Continue to monitor Accu-Cheks q.6 hours: These have been in good range will discontinue checks and monitor as needed Resume metformin when he is stable and eating (4) Atrial fibrillation: Code(s): I48.91 - Unspecified atrial fibrillation Status: Acute Assessment and Plan: Will change from home carvedilol to metoprolol for better rate control Continue home digoxin Continue home rivaroxaban for anticoagulation Continue to monitor (5) Congestive heart failure: Qualifiers: Heart failure chronicity: chronic Heart failure type: unspecified Qualified Code(s): I50.9 - Heart failure, unspecified Code(s): I50.9 - Heart failure, unspecified Status: Acute Assessment and Plan: Echocardiogram 01/24 left ventricular function severely reduced, LV severely enlarged, EF 30-35%. Diastolic dysfunction present. No pulmonary hypertension. [id number] mitral valve regurgitation. Atria severely enlarged. Other findings noted. According to prior records ejection fraction of <15% patient had been discharged with Life Vest on and according to [employer] healthcare representative the only have few hours of recording and patient presented without vest and girlfriend does not know were the life vest is He seemed to be quite compensated currently, except for his atrial fibrillation which is improved with rate control with metoprolol. Continue to monitor Continue telemetry (6) Coronary artery disease: Code(s): I25.10 - Atherosclerotic heart disease of [place] coronary artery without angina pectoris Status: Acute Assessment and Plan: Continue home medications. (7) COVID-19: Code(s): U07.1 - COVID-19 Status: Acute Assessment and Plan: Chest x-ray is clear Not currently hypoxemic Supportive measures and isolation precautions (8) Hypertension: Code(s): I10 - Essential (primary) hypertension Status: Acute Assessment and Plan: Continue home lisinopril Change carvedilol to metoprolol as above (9) Cellulitis: Code(s): L03.90 - Cellulitis, unspecified Status: Acute Assessment and Plan: He has bilateral lower extremity (leg) ulceration, right leg ulcer is associated with erythema, edema, and tenderness to palpation. Initiate broad-spectrum antibiotics. Obtain MRI to rule out osteomyelitis and better assess the extent of infection Wound care consult Wound culture Subjective Date/time seen: 01/25/21 09:42 No major issues overnight. Afebrile. He reports feeling better. He is alert and oriented x3 this morning. Heart rate better controlled and less than 100. Review of Systems Review of Systems: All systems reviewed & are unremarkable ex
[2021-01-25 11:35] LABS: Glucose Point of Care 74 mg/dl (65-105)
[2021-01-25 11:56] LABS: Anion Gap 5 mmol/L (8-16); Blood Urea Nitrogen 15 mg/dL (9-20); CRP 6.1 mg/dL (<1.0); Calcium 7.7 mg/dL (8.4-10.2); Carbon Dioxide 22 mmol/L (22-30); Chloride 107 mmol/L (98-107); Estimated CRCL calculation 88 ml/min; Estimated Glomerular Filt Rate > 60; Glucose 91 mg/dL (65-110); Potassium 3.5 mmol/L (3.4-5.0); Sodium 134 mmol/L (137-145)
[2021-01-25 16:28] LABS: Glucose Point of Care 82 mg/dl (65-105)
[2021-01-25] MEDS: RIVAROXABAN 20 MG TABLET PO (18:02)
[2021-01-26] VITALS (9 sets, daily range): BP systolic 113–137; BP diastolic 69–88; PULSE 72–105; RESP 16–20; TEMP 35.6–37.7; O2SAT 97–100
[2021-01-26 07:44] LABS: Estimated CRCL calculation 99 ml/min; Estimated Glomerular Filt Rate > 60
[2021-01-26 08:20] LABS: Glucose Point of Care 98 mg/dl (65-105)
[2021-01-26] MEDS: CITALOPRAM HYDROBROMIDE 20 MG TABLET PO (09:33)
[2021-01-26] MEDS: DIGOXIN 250 MCG TABLET PO (09:33)
[2021-01-26] MEDS: METOPROLOL TARTRATE 25 MG TABLET PO ×2 (09:33→20:58)
[2021-01-26] MEDS: busPIRone HCL 10 MG TABLET 30 MG PO ×2 (09:33→16:36)
[2021-01-26] MEDS: lisinopriL 20 MG TABLET 40 MG PO (09:34)
--- NOTE | 2021-01-26 10:17 | PM.IMPN ---
Progress Note: A&P Assessment and Plan (1) Acute encephalopathy: Code(s): G93.40 - Encephalopathy, unspecified Status: Acute Assessment and Plan: Unclear etiology Question of ischemic event given dysarthria versus metabolic/toxic encephalopathy Brain MRI with no significant findings Carotid ultrasound with no significant stenosis Neurology consultation appreciated Blood and urine cultures negative so far (2) COPD (chronic obstructive pulmonary disease): Code(s): J44.9 - Chronic obstructive pulmonary disease, unspecified Status: Acute Assessment and Plan: Not currently symptomatic Continue home p.r.n. albuterol (3) Type 2 diabetes mellitus: Code(s): E11.9 - Type 2 diabetes mellitus without complications Status: Acute Assessment and Plan: Continue to monitor Accu-Cheks q.6 hours: These have been in good range will discontinue checks and monitor as needed Resume metformin when he is stable and eating: His hemoglobin A1c is 5.6 and his sugars have been mostly below 100, will discontinue metformin for now and recommend outpatient follow-up. (4) Atrial fibrillation: Code(s): I48.91 - Unspecified atrial fibrillation Status: Acute Assessment and Plan: Will change from home carvedilol to metoprolol for better rate control Continue home digoxin Continue home rivaroxaban for anticoagulation Continue to monitor (5) Congestive heart failure: Qualifiers: Heart failure chronicity: chronic Heart failure type: unspecified Qualified Code(s): I50.9 - Heart failure, unspecified Code(s): I50.9 - Heart failure, unspecified Status: Acute Assessment and Plan: Echocardiogram 01/24 left ventricular function severely reduced, LV severely enlarged, EF 30-35%. Diastolic dysfunction present. No pulmonary hypertension. [id number] mitral valve regurgitation. Atria severely enlarged. Other findings noted. According to prior records ejection fraction of <15% patient had been discharged with Life Vest on and according to [employer] V[employer] premium representative the only have few hours of recording and patient presented without vest and girlfriend does not know were the life vest is He seemed to be quite compensated currently, except for his atrial fibrillation which is improved with rate control with metoprolol. Continue to monitor Continue telemetry (6) Coronary artery disease: Code(s): I25.10 - Atherosclerotic heart disease of [place] coronary artery without angina pectoris Status: Acute Assessment and Plan: Continue home medications. (7) COVID-19: Code(s): U07.1 - COVID-19 Status: Acute Assessment and Plan: Chest x-ray is clear Not currently hypoxemic Supportive measures and isolation precautions (8) Hypertension: Code(s): I10 - Essential (primary) hypertension Status: Acute Assessment and Plan: Continue home lisinopril Change carvedilol to metoprolol as above (9) Cellulitis: Code(s): L03.90 - Cellulitis, unspecified Status: Acute Assessment and Plan: He has bilateral lower extremity (leg) ulceration, right leg ulcer is associated with erythema, edema, and tenderness to palpation. Initiate broad-spectrum antibiotics. Unfortunately unable to complete due to claustrophobia, patient refuses to retry. Wound care consult Wound culture showing Gram-negative bacilli, speciation and sensitivity is pending. Subjective Date/time seen: 01/26/21 10:17 Nurse reports an episode of agitation for the quickly subside. Otherwise events. Hemodynamically stable. Afebrile. No change in neurologic status. Review of Systems Review of Systems: All systems reviewed & are unremarkable except as noted in HPI and below Exam Narrative: Gen: Alert, NAD Abd: Soft, NT, ND Heart: Irregularly irregular Lungs: CTAB Ext: Trace lower extremity edema Skin: Bilateral lower extremity ulcerat
[2021-01-26 11:39] LABS: Glucose Point of Care 94 mg/dl (65-105)
[2021-01-26] MEDS: RIVAROXABAN 20 MG TABLET PO (16:36)
[2021-01-26 17:07] LABS: Glucose Point of Care 75 mg/dl (65-105)
[2021-01-26 22:02] LABS: Glucose Point of Care 125 mg/dl (65-105)
[2021-01-27] VITALS: BP 111/66; PULSE 79; PULSE 87; RESP 18; TEMP 36.5; O2SAT 97
[2021-01-27 04:00] VITALS: BP 127/83; PULSE 74; PULSE 89; RESP 18; TEMP 36.4; O2SAT 96
[2021-01-27 08:00] VITALS: BP 98/64; PULSE 77; PULSE 81; RESP 20; TEMP 36.4; O2SAT 99
[2021-01-27 08:31] LABS: Glucose Point of Care 95 mg/dl (65-105)
[2021-01-27] MEDS: busPIRone HCL 10 MG TABLET 30 MG PO ×2 (08:57→17:05)
[2021-01-27] MEDS: CITALOPRAM HYDROBROMIDE 20 MG TABLET PO (08:57)
[2021-01-27] MEDS: ACETAMINOPHEN 500 MG TABLET 1000 MG PO (09:50)
--- NOTE | 2021-01-27 10:28 | PM.IMPN ---
Progress Note: A&P Assessment and Plan (1) Acute encephalopathy: Code(s): G93.40 - Encephalopathy, unspecified Status: Acute Assessment and Plan: Unclear etiology Question of ischemic event given dysarthria versus metabolic/toxic encephalopathy Brain MRI with no significant findings Carotid ultrasound with no significant stenosis Neurology consultation appreciated Blood and urine cultures negative so far Possibly toxic encephalopathy in the setting his lower extremity infection/cellulitis, improving (2) COPD (chronic obstructive pulmonary disease): Code(s): J44.9 - Chronic obstructive pulmonary disease, unspecified Status: Acute Assessment and Plan: Not currently symptomatic Continue home p.r.n. albuterol (3) Type 2 diabetes mellitus: Code(s): E11.9 - Type 2 diabetes mellitus without complications Status: Acute Assessment and Plan: Continue to monitor Accu-Cheks q.6 hours: These have been in good range will discontinue checks and monitor as needed Resume metformin when he is stable and eating: His hemoglobin A1c is 5.6 and his sugars have been mostly below 100, will discontinue metformin for now and recommend outpatient follow-up. (4) Atrial fibrillation: Code(s): I48.91 - Unspecified atrial fibrillation Status: Acute Assessment and Plan: Changed from home carvedilol to metoprolol for better rate control Continue home digoxin Continue home rivaroxaban for anticoagulation Continue to monitor (5) Congestive heart failure: Qualifiers: Heart failure chronicity: chronic Heart failure type: unspecified Qualified Code(s): I50.9 - Heart failure, unspecified Code(s): I50.9 - Heart failure, unspecified Status: Acute Assessment and Plan: Echocardiogram 01/24 left ventricular function severely reduced, LV severely enlarged, EF 30-35%. Diastolic dysfunction present. No pulmonary hypertension. [id number] mitral valve regurgitation. Atria severely enlarged. Other findings noted. According to prior records ejection fraction of <15% patient had been discharged with Life Vest on and according to [employer] V[employer] enrollment representative the only have few hours of recording and patient presented without vest and girlfriend does not know were the life vest is He seemed to be quite compensated currently, except for his atrial fibrillation which is improved with rate control with metoprolol. Continue to monitor Continue telemetry (6) Coronary artery disease: Code(s): I25.10 - Atherosclerotic heart disease of [place] coronary artery without angina pectoris Status: Acute Assessment and Plan: Continue home medications. (7) COVID-19: Code(s): U07.1 - COVID-19 Status: Acute Assessment and Plan: Chest x-ray is clear Not currently hypoxemic Supportive measures and isolation precautions (8) Hypertension: Code(s): I10 - Essential (primary) hypertension Status: Acute Assessment and Plan: Continue home lisinopril Change carvedilol to metoprolol as above (9) Cellulitis: Code(s): L03.90 - Cellulitis, unspecified Status: Acute Assessment and Plan: He has bilateral lower extremity (leg) ulceration, right leg ulcer is associated with erythema, edema, and tenderness to palpation. Initiate broad-spectrum antibiotics. Zosyn (01/24- Unfortunately unable to complete due to claustrophobia, patient refuses to retry. Wound care consult Wound culture showing pseudomonas that is sensitive to fluoroquinolones. Will transition to levofloxacin on discharge. Additional Plan I did call his significant other, Sameer, to update but she was unavailable, I left her message. Yesterday I called his son Michael but there was no answer as well. Subjective Date/time seen: 01/27/21 10:28 Hemodynamically stable and afebrile overnight. Reports pain in his lower extremities ulceration. No other issues. S
[2021-01-27 11:15] VITALS: PULSE 87
[2021-01-27] MEDS: METOPROLOL TARTRATE 12.5 MG TABLET PO (11:15)
[2021-01-27 11:55] LABS: Glucose Point of Care 95 mg/dl (65-105)
[2021-01-27 12:00] VITALS: BP 125/88; PULSE 73; PULSE 91; RESP 20; TEMP 36.7; O2SAT 100
--- NOTE | 2021-01-27 14:53 | PCPTNOTE ---
The patient treatment was not able to be completed today due to patient awaiting LE wound dressing. Will plan to continue treatment per plan of care.
[2021-01-27] MEDS: SILVERGEL (ELTA) 45 ML 1 APPLIC TOPICAL (15:44)
[2021-01-27 16:00] VITALS: BP 127/85; PULSE 87; PULSE 90; RESP 24; TEMP 36.2; O2SAT 99
[2021-01-27] MEDS: levoFLOXacin 750 MG TABLET PO (17:05)
[2021-01-27] MEDS: RIVAROXABAN 20 MG TABLET PO (17:06)
--- NOTE | 2021-01-27 18:27 | PM.DS ---
DS: Admitting Diagnosis Admitting Diagnosis Altered mental status DS: Discharge Diagnosis Discharge Diagnosis (1) Cellulitis: Code(s): L03.90 - Cellulitis, unspecified Status: Acute (2) Hypertension: Code(s): I10 - Essential (primary) hypertension Status: Acute (3) Acute encephalopathy: Code(s): G93.40 - Encephalopathy, unspecified Status: Acute (4) COVID-19: Code(s): U07.1 - COVID-19 Status: Acute (5) Chronic anticoagulation: Code(s): Z79.01 - [facility] (current) use of anticoagulants Status: Acute (6) Atrial fibrillation: Code(s): I48.91 - Unspecified atrial fibrillation Status: Acute (7) Type 2 diabetes mellitus: Code(s): E11.9 - Type 2 diabetes mellitus without complications Status: Acute DS: Summary Hospital Course Hospital Course: This is a 61-year-old man with a history of type 2 diabetes, hypertension, atrial fibrillation, advanced cardiomyopathy with EF < 15%, and methamphetamine use brought to the ED by EMS 01/23 after home health nurse found him unresponsive. He became slightly more responsive in the ED, was noted to be dysarthric. He continues to use methamphetamine. he was found to have blood pressure of 130/110, heart rate 115, temperature 36.2?, pulse oximetry 100% on room air. He was admitted to the hospital for evaluation. He was incidentally found to be COVID positive on testing 01/23. He had a CT scan of the head that showed no significant abnormalities to explain his presentation. He was seen by Neurology given his dysarthria. CT scan of his abdomen showed no acute intra-abdominal findings, multiple large left caliceal stones noted, bladder wall thickening with acute or chronic cystitis, severe left hip osteoarthritis, and cardiomegaly were noted. He did have an echocardiogram that showed left ventricle severely dilated, EF 30-35%, LV septal wall motion is abnormal with septal motion related to bundle branch block, severe enlargement of the left and right atria, mild to moderate mitral valve regurgitation, along with other findings. He was noted to have bilateral lower extremity ulcerations, with right lower extremity erythema, edema, tenderness to palpation consistent with cellulitis. He received wound care for his ulcers. He was seen by Neurology for his dysarthria. He subsequently had a brain MRI that did not show any significant abnormalities. Ultrasound of his carotids did not show significant stenosis. His dysarthria gradually improved and he was back to his baseline. He became alert and fully oriented, and was monitored closely in the hospital. Neurology followed him through the hospitalization and was comfortable with his discharge. His presentation was thought to be due to the underlying infection which improved with treatment. Blood and urine cultures were obtained and were negative. Wound culture from his right lower extremity showed pseudomonas. For his lower extremity cellulitis, he was initially started on broad-spectrum antibiotics. This was then transitioned to Levofloxacin based on sensitivity, based on results of wound culture. Continued wound care of his lower extremity ulceration is recommended. During the hospitalization, his blood sugars were noted to be in excellent range, and mostly below 100. His metformin was not resumed. His hemoglobin A1c was 5.6. Plan to discontinue metformin concurrently and resumed outpatient setting as needed. For his atrial fibrillation, during his stay, his carvedilol was changed to metoprolol, his rivaroxaban were continued. He reported that his digoxin was recently discontinued prior to his hospitalization. His care was discussed in detail with his roommate/significant other, Sameer, who will be attending to him at home after discharge. He has multiple friends who live with him at home and have been helping him with his medical care. Additionally, home health to cont
== END 2021-01-27 17:30 | disposition home health service (06) | DRG 602 ==
LOC: ANHIMU 09:32 → ANH3MEDSUR 20:21
PROVIDERS: Admitting Provider Internal Medicine; PCP Nurse Practitioner Family; Visit Provider Internal Medicine Nephrology
DX: L03.115 Cellulitis of right lower limb (principal); U07.1 COVID-19; G92 Toxic encephalopathy; L97.929 Non-pressure chronic ulcer of unspecified part of left lower leg with unspecified severity; L97.919 Non-pressure chronic ulcer of unspecified part of right lower leg with unspecified severity; I48.20 Chronic atrial fibrillation, unspecified; I42.9 Cardiomyopathy, unspecified; B96.5 Pseudomonas (aeruginosa) (mallei) (pseudomallei) as the cause of diseases classified elsewhere; R47.1 Dysarthria and anarthria; I50.9 Heart failure, unspecified; J44.9 Chronic obstructive pulmonary disease, unspecified; I25.10 Atherosclerotic heart disease of native coronary artery without angina pectoris; E11.9 Type 2 diabetes mellitus without complications; F15.90 Other stimulant use, unspecified, uncomplicated; Z79.01 Long term (current) use of anticoagulants; Z87.891 Personal history of nicotine dependence
CPT/HCPCS: 36415; 70553; 71045; 73723; 80048; 80053; 80202; 82565; 82948; 83036; 83605; 83735; 84100; 85025; 85610; 86140; 87040; 87070; 87077; 87186; 87205; 92507; 92523; 92610; 93005; 93306; 93880; 96365; 96366; 96367; 96372; 96375; 97110; 97162; 97165; A9270; A9577; G0378; G0379; J0131; J1650; J2060; J2543; J3370; J7030

== ENCOUNTER 2021-06-11 12:11 | Inpatient (IN) | payer OTHER, SELFPAY ==
--- NOTE | ~2021-06-11 | CT_ITS ---
EXAMINATION: CT LE RT w con DATE: 06/12/2021 15:33 INDICATION: Circumferential necrotic ulceration of the right lower leg TECHNIQUE: High resolution computed tomography (CT) of the right lower leg was performed with 100 mL Omnipaque-350 intravenous contrast. Additional sagittal and coronal reconstructions were performed. A utomated exposure control and iterative reconstruction technique were employed. The dose-length produ ct was 1209.53 mGy-cm. COMPARISON: 10/08/2020 FINDINGS: Bone alignment is normal. No acute fracture. 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 Polyarticular osteoarthritis, mild at the right foot and ankle and at least mild at the right knee although severity of joint space narrowing can be underestimated on nonweightbearin g imaging. There is subarticular cystic change along the anterior weightbearing medial femoral condyl e and along the patellar apical ridge and adjacent medial facet consistent with overlying high-grade chondromalacia. No right knee or ankle joint effusions. There is diffuse fatty muscle atrophy in both calves most prominent in the posterior compartments. Extensive atherosclerotic disease throughout th e arteries of the right lower leg beginning at the popliteal artery and extending more distally but w ith no greater than mild stenosis. Three-vessel runoff to the right foot. Diffuse subcutaneous edema throughout both calves. Asymmetric skin thickening with shallow skin ulcerations about the mid to dis gisele right calf and ankle. No abscess. No cortical erosions or periosteal reaction to suggest osteomye litis. IMPRESSION: 1. Likely cellulitis with skin thickening and shallow skin ulceration at the mid to distal right calf and ankle. No abscess or osteomyelitis. 2. Extensive atherosclerotic disease throughout the arteries of the right lower limb without hemodyna mically significant stenosis and with three-vessel runoff to the right foot. Reviewed, dictated and finalized at location A. [employer] IMPRESSION: 1. Likely cellulitis with skin thickening and shallow skin ulceration at the mi d to distal right calf and ankle. No abscess or osteomyelitis. 2. Extensive atherosclerotic disease throughout the arteries of the right lower limb without hemodynamically significant stenosis and with three-vessel runoff to the right foot.
--- NOTE | ~2021-06-11 | XR_ITS ---
XR chest 1V portable DATE: 06/11/2021 12:49 INDICATION: Chest pain TECHNIQUE: Portable upright AP chest on 06/11/2021 at 1247 hours COMPARISON: 01/24/2021 portable AP chest FINDINGS: Cardiomegaly. No hilar or mediastinal enlargement. No pulmonary infiltrate or consolidation , pleural effusion or pulmonary vascular congestion or pneumothorax. Degenerative changes of the acromioclavicular joints and bilateral chronic rotator cuff atrophy. IMPRESSION: Cardiomegaly No active pulmonary disease Reviewed, dictated and finalized at location A. [employer]
--- NOTE | ~2021-06-11 | CT_ITS ---
EXAMINATION: CTA chest PE protocol DATE: 06/11/2021 13:47 INDICATION: Chest pain. Elevated d-dimer. TECHNIQUE: Computed tomography angiography (CTA) of the chest was performed with 100 mL Omnipaque-350 intravenous contrast timed to evaluate the pulmonary arteries. Coronal maximum intensity projection 3D-reconstructions were created by the technologist. Automated exposure control and iterative reconst ruction technique were employed. Exam dose: 639.45 mGy-cm total exam DLP. COMPARISON: 06/11/2021 portable AP chest FINDINGS: There is diagnostic contrast enhancement of the pulmonary arteries and no evidence of pulmo nary embolism. Cardiomegaly. No pericardial or pleural effusion. No thoracic aortic aneurysm. No hilar or mediastinal enlargement. No pulmonary infiltrate or consolidation or suspicious pulmonary mass lesion. No adrenal enlargement. Bilateral nephrolithiasis, particularly severe on the left. Degenerative disc disease of lower cervical spine and mild degenerative spurring of thoracic spine. Bilateral glenohumeral osteoarthritis. IMPRESSION: No pulmonary embolism Cardiomegaly Reviewed, dictated and finalized at [facility]. Reviewed, dictated and finalized at [facility]. RAFT PILOT
[2021-06-11 12:15] VITALS: BP 139/88; PULSE 125; RESP 16; O2SAT 97
--- NOTE | 2021-06-11 12:17 | ECG_ITS ---
Measurements Intervals [place] Rate: 125 P: [place]: 0 QRS: 28 QRSD: 105 T: 10 QT: 343 QTc: 495 Interpretive Statements ATRIAL FIBRILLATION WITH RAPID VENTRICULAR RESPONSE POSSIBLE LEFT VENTRICULAR HYPERTROPHY CANNOT RULE OUT SEPTAL INFARCT, AGE INDETERMINATE BORDERLINE ST-T WAVE ABNORMALITY- INF/LAT LEADS BASELINE WANDER- I, II, III, AVR, AVL, V5-V6 ABNORMAL ECG Electronically Signed On 06-11-2021 12:43:26 DENTIST by Nish Lock D.O.
[2021-06-11 12:43] LABS: Basophils Absolute Auto 0.06 K/mm3 (0.00-0.10); Basophils Percent Auto 0.8 % (0.0-1.0); Eosinophils Absolute Auto 0.53 K/mm3 (0.02-0.50); Eosinophils Percent Auto 7.1 % (1.0-6.0); Hematocrit 34.6 % (40.0-54.0); Hemoglobin 9.9 g/dL (14.0-18.0); Immature Granulocyte Absolute 0.02 K/mm3 (0.00-0.00); Immature Granulocyte Percent A 0.3 % (0.0-0.0); Lymphocytes Absolute Auto 1.87 K/mm3 (1.10-4.50); Lymphocytes Percent Auto 25.1 % (18.0-42.0); Mean Corpuscular HGB Conc 28.6 g/dL (32.0-36.0); Mean Corpuscular Hemoglobin 23.2 pg (27.0-31.0); Mean Platelet Volume 9.6 fl (8.7-11.0); Monocytes Absolute Auto 0.59 K/mm3 (0.10-0.90); Monocytes Percent Auto 7.9 % (2.0-11.0); Neutrophils Absolute Auto 4.4 K/mm3 (1.7-7.2); Neutrophils Percent Auto 58.8 % (50.0-70.0); Platelet Count Result 351 K/mm3 (150-420); Red Blood Count 4.27 M/mm3 (4.70-6.10); Red Cell Distribution Width 17.2 % (11.6-14.4); White Blood Count 7.4 K/mm3 (4.8-10.8)
--- NOTE | 2021-06-11 12:43 | PC.NURSE ---
Per Dr. Munguia, ok to hold off on cardizem for right now. Heart rate 110-116.
[2021-06-11 12:57] LABS: INR 1.1; Partial Thromboplastin Time 29.9 SEC (23.90-30.70); Prothrombin Time 11.4 Seconds (9.50-12.10)
[2021-06-11 12:58] LABS: D Dimer 0.95 mg/L (0.19-0.50)
[2021-06-11 13:09] LABS: Alanine Aminotransferase 18 U/L (16-63); Albumin Level 2.8 g/dL (3.4-5.0); Alkaline Phosphatase 72 U/L (46-116); Anion Gap 11 mmol/L (8-16); Aspartate Amino Transferase 16 U/L (15-37); Bilirubin,Total 0.3 mg/dL (0.00-1.00); Blood Urea Nitrogen 19 mg/dL (7-18); Calcium 8.2 mg/dL (8.5-10.1); Carbon Dioxide 24 mmol/L (21-32); Chloride 103 mmol/L (98-108); Creatine Kinase 86 U/L (39-308); Estimated CRCL calculation 66 ml/min; Estimated Glomerular Filt Rate > 60; Glucose 106 mg/dL (70-99); Lipase 98 U/L (73-393); NT Pro B Type Natriuretic Pept 6366 pg/mL (0-125); Osmolality Calculated 288 mOsm/kg (285-295); Potassium 3.5 mmol/L (3.5-5.1); Sodium 138 mmol/L (136-145); Total Protein 7.2 g/dL (6.4-8.2); Troponin I 13.5 ng/L (0.00-60.4)
[2021-06-11 13:10] LABS: CRP 4.9 mg/dL (0.0-0.9)
[2021-06-11 13:16] LABS: Lactic Acid Reflex 1.2 mmol/L (0.4-2.0)
[2021-06-11 13:27] LABS: SARS-CoV-2 RNA PCR Negative (Negative)
--- NOTE | 2021-06-11 14:35 | ED.CHESTPAIN ---
HPI - Chest Pain General Chief Complaint: Chest Pain Stated Complaint: AMBULANCE Source: patient and EMS Mode of arrival: EMS Limitations: no limitations History of Present Illness HPI narrative: this is a 61-year-old gentleman presents via EMS having chest pain for the last 3 days along with some mild shortness of breath patient with history of CHF, CAD, atrial fibrillation and diabetes with a right lower leg ulcerated leg that is extensive has a odor to the area with no fever chills no nausea vomiting no diarrhea constipation or abdominal pain. The patient sees Infectious Disease specialist at [facility], and has an appointment in early June. Patient presents with this the chest discomfort has a history of atrial fibrillation and his current heart rate is 125 and fluctuates between 117 and 125. complaint: chest pain Onset (ago): day(s) Timing of current episode: episodic Prior episodes: No Onset: during rest Pain location: subxiphoid Pain radiation: none Severity: mild Quality: aching Related Data Home Medications Medication Instructions Recorded Confirmed Xarelto 20 mg PO DAILY 10/08/20 01/24/21 albuterol sulfate 2 puff INHALATION Q4H PRN 10/08/20 01/24/21 buspirone 30 mg PO BID 10/08/20 01/24/21 citalopram 20 mg PO DAILY 10/08/20 01/24/21 furosemide 40 mg PO DAILY 10/08/20 01/24/21 lisinopril 40 mg PO DAILY 10/08/20 01/24/21 Allergies Allergy/AdvReac Type Severity Reaction Status Date / Time No Known Allergies Allergy Verified 01/24/21 03:15 Review of Systems Review of Systems: All systems reviewed & are unremarkable except as noted in HPI and below PMFSH Past Medical History Medical History Atrial fibrillation Chronic anticoagulation Congestive heart failure COPD (chronic obstructive pulmonary disease) Coronary artery disease Type 2 diabetes mellitus Family History Family History Other Unknown family medical history Social History Social History Smoking packs per day: 1 Smoking cigarettes per day: 20.0 Years smoked: 15 Smoking pack-years: 15.00 Smoking status: Former smoker Tobacco type: cigarettes Second hand tobacco smoke exposure: Yes Alcohol intake: unknown Substance use: current Substance use type: methamphetamine Spiritual care concerns: No Exam Const: General: no acute distress and alert Orientation/consciousness: patient oriented x3 HENMT: Head: normal to inspection Eyes: Conjunctivae: conjunctivae normal Pupils: Equal, round and reactive pupils present Neck: Neck: normal visual inspection and no lymphadenopathy Chest: Chest palpation & inspection: normal inspection of the chest Resp: Effort & Inspection: normal respiratory effort Auscultation: clear to auscultation bilaterally Cardio: Rate: regular rate Rhythm: regular rhythm GI: GI Palp: Yes Soft to palpation Percussion: Yes normal to percussion Urinary Catheter: Urinary Catheter: patent and draining and urine clear Back/Spine/Pelvis: Back: no CVA tenderness Skin: Wounds: wounds noted ( Chronic wound right lower extremity with drainage and no odor) Neuro: General: patient oriented x3 and moves all extremities Extrem: General: normal to inspection and no pedal edema Psych: Mental Status: mental status grossly normal Affect: normal affect Course Course Emergency Course: patient had lab work that was reviewed with the patient has a chronic wound on his right lower extremity will give him a dose of IV clindamycin patient had a negative COVID negative troponins, his D-dimer was elevated and CTA was ordered which showed no pulmonary embolism. Vital Signs Vital signs: Vital Signs Pulse Rate 125 H 06/11/21 12:15 Respiratory Rate 16 06/11/21 12:15 Blood Pressure 139/88 06/11/21 12:15 Pulse
[2021-06-11] MEDS: dilTIAZem HCl INJ 25 MG/5 ML VIAL 10 MG IV PUSH (14:47)
[2021-06-11] MEDS: CLINDAMYCIN 600 MG/D5W 50 ML 600 MG/50 ML PIGGYBACK 100 MG IVPB (14:52)
--- NOTE | 2021-06-11 15:01 | PC.NURSE ---
Floor notified of admission. Room 201 assigned.
[2021-06-11 16:00] VITALS: PULSE 106
[2021-06-11 16:19] VITALS: BP 138/100; PULSE 109; RESP 20; O2SAT 96
--- NOTE | 2021-06-11 16:45 | ADMGEN ---
This patient, Torrey Fernández, was admitted to 2nd Floor Room 201-1. Patient/family oriented to hospital policies and general routines including ID bracelet, bed and alarms, visiting hours, pain management, procedures, bathroom and other care routines, personal items, smoking policy, room service/diet, and visiting hours. Information on how to activate the Rapid Response Team has been discussed. Patient/Family are encouraged to report perceived risks to care and to ask questions if they do not understand what they are told or what they should do.
[2021-06-11 16:50] VITALS: BMI 27.8
[2021-06-11 17:16] LABS: Glucose Point of Care 98 mg/dl (65-105)
[2021-06-11 17:23] VITALS: BP 111/44; PULSE 106; RESP 20; TEMP 35.8; O2SAT 89
--- NOTE | 2021-06-11 17:30 | PC.NURSE ---
pt refuses oxygen at this time, tubing and bubbler put in room in case of need
[2021-06-11] MEDS: MORPHINE SULFATE (*CRX) 2 MG/ML INJ IV PUSH ×2 (17:39→22:09)
[2021-06-11 18:07] LABS: Add Urine Microscopic? YES; Appearance Urine Clear (Clear); Bilirubin Urine Negative (Negative); Blood Urine 2+ (Negative); Color Urine Yellow (Yellow); Glucose Urine UA Negative (Negative); Ketones Urine Negative (Negative); Leukocyte Esterase Ur Negative (Negative); Nitrate Urine Negative (Negative); Protein Urine Negative (Negative); Urobilinogen Urine 0.2 mg/dL (0.2-1.0); pH Urine 6.5 (5.0-8.0)
[2021-06-11 18:15] LABS: Amphetamine Screen Urine Positive (Negative); Barbiturate Screen Urine Negative (Negative); Benzodiazepines Screen Urine Negative (Negative); Cannabinoid Screen Urine Negative (Negative); Cocaine Screen Urine Negative (Negative); Methadone Screen Urine Negative (Negative); Opiate Screen Urine Negative (Negative); Phencyclidine Screen Urine Negative (Negative)
[2021-06-11 18:16] LABS: Bacteria Urine None seen /hpf; RBC Urine 21-50 /hpf (0-2); Squamous Epithelial Cell Urine None seen /hpf (Few); WBC Urine 0-3 /hpf (0-3)
[2021-06-11 19:02] VITALS: PULSE 120
[2021-06-11] MEDS: dilTIAZem HCl INJ 25 MG/5 ML VIAL 20 MG IV PUSH (20:41)
--- NOTE | 2021-06-11 20:42 | PC.NURSE ---
wound consult sent to dr mary ellen called about pt hr of 169, cardizem iv push given, pt states it is because he is in so much pain and the morphine is not helping, pt requests dilaudid, charge nurse is aware
[2021-06-11] MEDS: ENOXAPARIN 30 MG/0.3 ML SYRINGE SUB-Q (21:00)
[2021-06-11 21:05] VITALS: BP 105/71; PULSE 115
[2021-06-11] MEDS: dilTIAZem 100 MG/100 ML 100 MG/100 ML BAG 10 MG IV CONT (21:05)
[2021-06-11 21:27] LABS: Glucose Point of Care 131 mg/dl (65-105)
[2021-06-12] VITALS (12 sets, daily range): BP systolic 104–115; BP diastolic 60–88; PULSE 80–99; RESP 16–18; TEMP 36.3–36.7; O2SAT 97
--- NOTE | 2021-06-12 00:05 | PC.NURSE ---
Pt resting in bed and watching tv. Pt voided 250 ml of clear, valeriano urine in the urinal.
--- NOTE | 2021-06-12 02:05 | PC.NURSE ---
Pt asleep on his side and no signs of discomfort noted.
[2021-06-12 02:16] LABS: Basophils Absolute Auto 0.04 K/mm3 (0.00-0.10); Basophils Percent Auto 0.3 % (0.0-1.0); Eosinophils Absolute Auto 0.18 K/mm3 (0.02-0.50); Eosinophils Percent Auto 1.3 % (1.0-6.0); Hematocrit 28.2 % (40.0-54.0); Hemoglobin 8.7 g/dL (14.0-18.0); Immature Granulocyte Absolute 0.07 K/mm3 (0.00-0.00); Immature Granulocyte Percent A 0.5 % (0.0-0.0); Lymphocytes Absolute Auto 1.62 K/mm3 (1.10-4.50); Lymphocytes Percent Auto 11.6 % (18.0-42.0); Mean Corpuscular HGB Conc 30.9 g/dL (32.0-36.0); Mean Corpuscular Volume 77.7 fL (78.0-102.0); Mean Platelet Volume 9.6 fl (8.7-11.0); Monocytes Absolute Auto 0.85 K/mm3 (0.10-0.90); Monocytes Percent Auto 6.1 % (2.0-11.0); Neutrophils Absolute Auto 11.3 K/mm3 (1.7-7.2); Neutrophils Percent Auto 80.2 % (50.0-70.0); Platelet Count Result 321 K/mm3 (150-420); Red Blood Count 3.63 M/mm3 (4.70-6.10); Red Cell Distribution Width 16.7 % (11.6-14.4)
[2021-06-12 03:04] LABS: Alanine Aminotransferase 17 U/L (16-63); Albumin Level 2.4 g/dL (3.4-5.0); Alkaline Phosphatase 59 U/L (46-116); Anion Gap 10 mmol/L (8-16); Aspartate Amino Transferase 16 U/L (15-37); Bilirubin,Total 0.4 mg/dL (0.00-1.00); Blood Urea Nitrogen 14 mg/dL (7-18); Calcium 7.6 mg/dL (8.5-10.1); Carbon Dioxide 25 mmol/L (21-32); Chloride 101 mmol/L (98-108); Estimated CRCL calculation 70 ml/min; Estimated Glomerular Filt Rate > 60; Glucose 106 mg/dL (70-99); Osmolality Calculated 282 mOsm/kg (285-295); Potassium 3.8 mmol/L (3.5-5.1); Sodium 136 mmol/L (136-145); Total Protein 5.8 g/dL (6.4-8.2)
[2021-06-12 03:10] LABS: Lactic Acid Reflex 1.1 mmol/L (0.4-2.0)
--- NOTE | 2021-06-12 04:05 | PC.NURSE ---
Pt asleep and no signs of discomfort noted. Cardizem continues to infuse as ordered.
--- NOTE | 2021-06-12 05:00 | PC.NURSE ---
Pt given MSO4 2 mg IVP per his request for left leg foot and leg pain. Pt rates his pain as an '8' on a 1-10 pain scale and state his pain feels achey.
[2021-06-12] MEDS: MORPHINE SULFATE (*CRX) 2 MG/ML INJ IV PUSH ×3 (05:02→18:33)
--- NOTE | 2021-06-12 05:10 | PC.NURSE ---
Contacted Dr. Munguia regarding pts cardizem drip; He said to titrate drip down to 5 mg then down to 2 if pulse rate remains within normal range.
--- NOTE | 2021-06-12 06:30 | PC.NURSE ---
Pt dozing quietly; No signs of pain or discomfort noted. MSO4 effective in relieving pain. New bag of cardizem infusing at 5 mg/hr as ordered.
[2021-06-12] MEDS: dilTIAZem 100 MG/100 ML 100 MG/100 ML BAG 10 MG IV CONT (06:31)
--- NOTE | 2021-06-12 07:47 | PM.IMHP ---
H&P: HPI History of Present Illness Date/Time: 06/12/21 07:47 Torrey Curry is a 61 year old male who comes to the hospital for CP, SOB, and Rt LE Leg pain with Ulceration. Pt was found to have A fib w/ RVR and elevated BNP without indication of pulmonary edema on chest image report from radiology. His D-Dimer was elevated at 0.95 with CTA indicating no PE. Likely elevated d/t LLE Ulceration/Necrosis which requires surgical debridement. Will attempt to transfer this individual to appropriate facility which will prove difficult considering current no available bed status of [facility] and [facility]. This AM Pt states he is not having any chest pain and his breathing is okay . He has been on room air since he came to the floor. He does complain about his Rt LE which has been an ongoing treatment for the past 3 years. Pt states that he has gone to 3 different hospitals to have this treated. He ran out of his medications as he was unable to afford them. He does have some pain in this leg but is able to feel everything in his toes and has some movement. Pt has no other complaints or concerns at this time. Chief Complaint: CP, SOB Review of Systems Constitutional: Constitutional: Reports no additional constitutional complaints, Denies body ache(s), Denies chills, Denies fatigue, Denies fever(s) and Denies headache(s) Cardiovascular: Cardiovascular: Reports no additional cardiovascular complaints, Denies chest pain, Denies chest pain at rest, Denies chest pain with activity and Denies lightheadedness Respiratory: Respiratory: Reports no additional respiratory complaints, Denies chest congestion, Denies cough, Denies dyspnea and Denies dyspnea on exertion Gastrointestinal: Gastrointestinal: Reports no additional gastrointestinal complaints Genitourinary: Genitourinary: Reports no additional male genitourinary complaints Musculoskeletal: Musculoskeletal: Reports no additional musculoskeletal complaints Integumentary/Breasts: Skin/Breast: Reports as per HPI and Reports swelling (BLE > right) Neurologic: Reports system reviewed and no additional complaints, except as documented Psychiatric: Psychiatric: Reports no additional psychiatric complaints [facility] Past Medical History Medical History Atrial fibrillation Chronic anticoagulation Congestive heart failure COPD (chronic obstructive pulmonary disease) Coronary artery disease Type 2 diabetes mellitus Family History Family History Other Unknown family medical history Social History Social History Smoking packs per day: 1 Smoking cigarettes per day: 20.0 Years smoked: 15 Smoking pack-years: 15.00 Smoking status: Former smoker Tobacco type: cigarettes Second hand tobacco smoke exposure: Yes Alcohol intake: never Substance use: current Substance use type: methamphetamine Spiritual care concerns: No Meds Home Medications and Allergies Home Medications Medication Instructions Recorded Confirmed Type Xarelto 20 mg PO DAILY 10/08/20 06/11/21 History albuterol sulfate 2 puff INHALATION Q4H PRN 10/08/20 06/11/21 History buspirone 30 mg PO BID 10/08/20 06/11/21 History citalopram 20 mg PO DAILY 10/08/20 06/11/21 History furosemide 40 mg PO DAILY 10/08/20 06/11/21 History lisinopril 40 mg PO DAILY 10/08/20 06/11/21 History acetaminophen 500 mg PO Q6H PRN #120 tablet 01/27/21 06/11/21 Rx metoprolol tartrate 25 mg PO Q12HR #60 tablet 01/27/21 06/11/21 Rx silver [Silver-Sept] 1 applic TOPICAL DAILY 30 Days g 01/27/21 06/11/21 Rx albuterol sulfate See Rx Instructions .ROUTE .COMPLEX 06/11/21 06/11/21 History carvedilol 25 mg PO DAILY 06/11/21 06/11/21 History rivaroxaban [Xarelto] 20 mg PO DAILY 06/11/21 06/11/21 History Allergies Allergy/AdvReac Type Severity Reaction Status Date / Time No
[2021-06-12] MEDS: CLINDAMYCIN 600 MG/D5W 50 ML 600 MG/50 ML PIGGYBACK 100 MG IVPB ×2 (09:20→18:33)
[2021-06-12] MEDS: ENOXAPARIN 30 MG/0.3 ML SYRINGE SUB-Q (09:20)
[2021-06-12] MEDS: levoFLOXacin 500 MG/D5W 100 ML 500 MG/100 ML BAG 100 MG IVPB (12:26)
[2021-06-12 14:22] LABS: Glucose Point of Care 152 mg/dl (65-105)
[2021-06-12] MEDS: RIVAROXABAN 10 MG TABLET 20 MG PO (18:34)
[2021-06-12 18:46] LABS: Glucose Point of Care 178 mg/dl (65-105)
[2021-06-12] MEDS: carvediloL 3.125 MG TABLET PO (21:33)
[2021-06-12 21:50] LABS: Glucose Point of Care 106 mg/dl (65-105)
[2021-06-13] VITALS (10 sets, daily range): BP systolic 99–110; BP diastolic 50–73; PULSE 64–85; RESP 20; TEMP 36.3–36.6; O2SAT 96–97
[2021-06-13] MEDS: CLINDAMYCIN 600 MG/D5W 50 ML 600 MG/50 ML PIGGYBACK 100 MG IVPB ×3 (01:03→16:04)
[2021-06-13] MEDS: ACETAMINOPHEN 325 MG TABLET 650 MG PO (04:32)
[2021-06-13 06:23] LABS: Hematocrit 27.7 % (40.0-54.0); Hemoglobin 8.3 g/dL (14.0-18.0); Mean Corpuscular Hemoglobin 24.1 pg (27.0-31.0); Mean Corpuscular Volume 80.3 fL (78.0-102.0); Mean Platelet Volume 10.2 fl (8.7-11.0); Platelet Count Result 298 K/mm3 (150-420); Red Blood Count 3.45 M/mm3 (4.70-6.10); Red Cell Distribution Width 17.1 % (11.6-14.4); White Blood Count 9.6 K/mm3 (4.8-10.8)
[2021-06-13 06:49] LABS: Anion Gap 8 mmol/L (8-16); Blood Urea Nitrogen 11 mg/dL (7-18); Calcium 7.9 mg/dL (8.5-10.1); Carbon Dioxide 25 mmol/L (21-32); Chloride 101 mmol/L (98-108); Estimated CRCL calculation 70 ml/min; Estimated Glomerular Filt Rate > 60; Glucose 95 mg/dL (70-99); NT Pro B Type Natriuretic Pept 5632 pg/mL (0-125); Osmolality Calculated 277 mOsm/kg (285-295); Sodium 134 mmol/L (136-145)
--- NOTE | 2021-06-13 07:51 | PM.IMPN ---
Progress Note: A&P Assessment and Plan (1) Atrial fibrillation with RVR: Code(s): I48.91 - Unspecified atrial fibrillation <IVANNA Moore - Last Filed: 06/13/21 12:22> Status: Acute <Nitesh GuerraJose Miguel Foley APN-C - Last Filed: 06/13/21 12:22> Assessment and Plan: This is a chronic issue, Continue Xarelto, cardiac monitoring with telemetry, Pt has been off of his medications for some time due to cost, Cardizem drip was turned off this AM and Pt had PO 240 mg, rate was still elevated by noon and an additional 120 mg administered, daily dose also increased thereafter to 360 mg PO. will continue to monitor. Last HR 100-120 06/13/2021 Rate continues to be well controlled, no changes needed at this time. Current dose of Cardizem is 360 mg <Nitesh Foley APN-C - Last Filed: 06/13/21 12:22> (2) Lower extremity ulceration: Code(s): L97.909 - Non-pressure chronic ulcer of unspecified part of unspecified lower leg with unspecified severity <Nitesh Foley APN-C - Last Filed: 06/13/21 12:22> Status: Acute <Nitesh Foley APN-Mary Ellen - Last Filed: 06/13/21 12:22> Assessment and Plan: Eschar from just below the right knee to above the ankle. Ongoing for 3 years, has gone to multiple hospitals, needs surgical debridement, will attempt to transfer, if unable likely will send home on PO Ab and have him schedule same as outpatient. Pt has sensation in all toes, good capillary refill time. Clindamycin and Levaquin 06/13/2021 Attempting transfer for sergical interventions, Debridement, moist to dry dressing daily. <IVANNA Moore - Last Filed: 06/13/21 12:22> (3) Acute exacerbation of CHF (congestive heart failure): Code(s): I50.9 - Heart failure, unspecified <Nitesh Foley APN-C - Last Filed: 06/13/21 12:22> Status: Acute <Nitesh Foley APN-C - Last Filed: 06/13/21 12:22> Assessment and Plan: BNP 6366, lungs clear, peripheral edema > right LE, room air, no distress, will monitor, no IFVs 06/13/2021 slight decrease in BNP 5632, stable <Nitesh Villalba IVANNA Foley - Last Filed: 06/13/21 12:22> (4) Hypertension: Code(s): I10 - Essential (primary) hypertension <IVANNA Moore - Last Filed: 06/13/21 12:22> Status: Acute <Nitesh GuerraIVANNA Vences - Last Filed: 06/13/21 12:22> Assessment and Plan: VSS, continue Lisinopril @ 10 mg, Coreg @ 3.125 mg BID, monitor VS, make adjustments as needed. 06/13/2021 99/73 from this AM, no changes at this time <IVANNA Moore - Last Filed: 06/13/21 12:22> (5) Chest pain: Code(s): R07.9 - Chest pain, unspecified <IVANNA Moore - Last Filed: 06/13/21 12:22> Status: Acute <Nitesh CharlieIVANNA Vences - Last Filed: 06/13/21 12:22> Assessment and Plan: Pt states he does not have CP today. EKG A fib w. RVR, Troponin 13.5 06/13/2021 ... <IVANNA Moore - Last Filed: 06/13/21 12:22> Subjective Date/time seen: 06/13/21 07:51 Pt laying in bed stating he is comfortable. He does not complain of CP, SOB, Abdominal pain, fever, chills. He does complain of leg pain in RLE. Pt made aware that he is set up for transfer to higher level of care for debridement of RLE wound. <IVANNA Moore - Last Filed: 06/13/21 12:22> Review of Systems Review of Systems: All systems reviewed & are unremarkable except as noted in HPI and below <IVANNA Moore - Last Filed: 06/13/21 12:22> Exam Const: General: cooperative, comfortable, no acute distress, well developed, alert, awake, Physically active and tired appearing <IVANNA Moore - Last Filed: 06/13/21 12:22> Nutritional Appearance: average body habitus <IVANNA Moore - Last Filed: 06/13/21 12:22> Resp: Effort & Inspection: normal respiratory effort and no cough <IVANNA Moore - Last Filed: 06/13/21 12:22> Auscultation: clear to auscu
[2021-06-13 08:25] LABS: Glucose Point of Care 89 mg/dl (65-105)
[2021-06-13] MEDS: lisinopriL 10 MG TABLET PO (09:09)
[2021-06-13] MEDS: carvediloL 3.125 MG TABLET PO ×2 (09:10→20:25)
[2021-06-13] MEDS: dilTIAZem HCL CD 180 MG CAP.ER.24H 360 MG PO (09:10)
[2021-06-13] MEDS: levoFLOXacin 500 MG/D5W 100 ML 500 MG/100 ML BAG 100 MG IVPB (10:55)
[2021-06-13] MEDS: MORPHINE SULFATE (*CRX) 2 MG/ML INJ IV PUSH ×2 (10:56→18:23)
[2021-06-13 12:05] LABS: Glucose Point of Care 135 mg/dl (65-105)
[2021-06-13 17:15] LABS: Glucose Point of Care 121 mg/dl (65-105)
[2021-06-13] MEDS: RIVAROXABAN 10 MG TABLET 20 MG PO (17:35)
[2021-06-13 21:36] LABS: Glucose Point of Care 131 mg/dl (65-105)
--- NOTE | 2021-06-13 22:17 | PC.NURSE ---
Report was called to Bhavani Betts at [facility] in [place], [place] she is aware that patient will be transported there and [facility] called for transport.
--- NOTE | 2021-06-14 18:11 | PM.TDS ---
Transfer Discharge Sum: Prov Provider Date of admission: 06/11/21 14:45 <Nitesh Foley APN-C - Last Filed: 06/14/21 18:16> Primary care physician: Gabriela Rodriguez, PRODUCT ASSEMBLER <TENA MooreC - Last Filed: 06/14/21 18:16> Admitting clinician: Christophe Munguia MD <IVANNA Moore - Last Filed: 06/14/21 18:16> Consults: 06/11/21 Wound/ET Consult Routine Reason for Consult:: right lower extremity infected wound <TENA MooreC - Last Filed: 06/14/21 18:16> DS: Admitting Diagnosis Discharge Date 06/13/21 @ 2150 hours <TENA MooreC - Last Filed: 06/14/21 18:16> Admitting Diagnosis Ulceration RLE <IVANNA Moore - Last Filed: 06/14/21 18:16> DS: Discharge Diagnosis Discharge Diagnosis (1) Atrial fibrillation with RVR: Code(s): I48.91 - Unspecified atrial fibrillation <Nitesh Foley APN-C - Last Filed: 06/14/21 18:16> Status: Acute <IVANNA Moore - Last Filed: 06/14/21 18:16> Assessment and Plan: This is a chronic issue, Continue Xarelto, cardiac monitoring with telemetry, Pt has been off of his medications for some time due to cost, Cardizem drip was turned off this AM and Pt had PO 240 mg, rate was still elevated by noon and an additional 120 mg administered, daily dose also increased thereafter to 360 mg PO. will continue to monitor. Last HR 100-120 06/13/2021 Rate continues to be well controlled, no changes needed at this time. Current dose of Cardizem is 360 mg Pt transferred to [facility] accepting Dr. Clay, Surgeon Dr. Webb <TENA MooreC - Last Filed: 06/14/21 18:16> (2) Lower extremity ulceration: Code(s): L97.909 - Non-pressure chronic ulcer of unspecified part of unspecified lower leg with unspecified severity <Nitesh Villalba ELDER Foley-C - Last Filed: 06/14/21 18:16> Status: Acute <Nitesh KrishnanIVANNA lino - Last Filed: 06/14/21 18:16> Assessment and Plan: Eschar from just below the right knee to above the ankle. Ongoing for 3 years, has gone to multiple hospitals, needs surgical debridement, will attempt to transfer, if unable likely will send home on PO Ab and have him schedule same as outpatient. Pt has sensation in all toes, good capillary refill time. Clindamycin and Levaquin 06/13/2021 Attempting transfer for sergical interventions, Debridement, moist to dry dressing daily. <Nitesh Villalba IVANNA Foley - Last Filed: 06/14/21 18:16> (3) Acute exacerbation of CHF (congestive heart failure): Code(s): I50.9 - Heart failure, unspecified <Nitesh Villalba IVANNA Foley - Last Filed: 06/14/21 18:16> Status: Acute <Nitesh KrishnanELDER lino-C - Last Filed: 06/14/21 18:16> Assessment and Plan: BNP 6366, lungs clear, peripheral edema > right LE, room air, no distress, will monitor, no IFVs 06/13/2021 slight decrease in BNP 5632, stable <Nitesh KrishnanELDER lino-C - Last Filed: 06/14/21 18:16> (4) Hypertension: Code(s): I10 - Essential (primary) hypertension <Nitesh Villalba TENA FoleyC - Last Filed: 06/14/21 18:16> Status: Acute <Nitesh KrishnanELDER lino-C - Last Filed: 06/14/21 18:16> Assessment and Plan: VSS, continue Lisinopril @ 10 mg, Coreg @ 3.125 mg BID, monitor VS, make adjustments as needed. 06/13/2021 99/73 from this AM, no changes at this time <Nitesh Villalba ELDER Foley-C - Last Filed: 06/14/21 18:16> (5) Chest pain: Code(s): R07.9 - Chest pain, unspecified <IVANNA Moore - Last Filed: 06/14/21 18:16> Status: Acute <IVANNA Moore - Last Filed: 06/14/21 18:16> Assessment and Plan: Pt states he does not have CP today. EKG A fib w. RVR, Troponin 13.5 06/13/2021 ... <IVANNA Moore - Last Filed: 06/14/21 18:16> Transfer Discharge Sum: Med Medications Active and Home Medications: Home Medications furosemide 40 mg PO
--- NOTE | 2021-08-09 17:36 | PM.TDS ---
Transfer Discharge Sum: Prov Provider Date of admission: 06/11/21 14:45 Primary care physician: Gabriela Rodriguez, ELECTRIC MOTOR REBUILDER Admitting clinician: Christophe Munguia MD Consults: 06/11/21 Wound/ET Consult Routine Reason for Consult:: right lower extremity infected wound DS: Admitting Diagnosis Discharge Date 06/13/21 Admitting Diagnosis atrial fibrillation with RVR, infected wound, congestive heart failure DS: Discharge Diagnosis Discharge Diagnosis (1) Infected wound: Code(s): T14.8XXA - Other injury of unspecified body region, initial encounter; L08.9 - Local infection of the skin and subcutaneous tissue, unspecified Status: Acute Assessment and Plan: Patient being transferred to higher level of care due to his chronic wound and evidence of Pseudomonas infection that needs debridement. (2) Congestive heart failure: Qualifiers: Heart failure chronicity: acute Heart failure type: systolic Qualified Code(s): I50.21 - Acute systolic (congestive) heart failure Code(s): I50.9 - Heart failure, unspecified Status: Acute Assessment and Plan: Congestive heart failure secondary to atrial fibrillation with RVR. Heart rate has been controlled and he continues on CHF medications at transfer. (3) Type 2 diabetes mellitus: Code(s): E11.9 - Type 2 diabetes mellitus without complications Status: Acute Assessment and Plan: Continue current medications and sliding scale insulin as needed. (4) Atrial fibrillation with RVR: Code(s): I48.91 - Unspecified atrial fibrillation Status: Acute Assessment and Plan: Patient had AFib with RVR. He is treated and his heart rate brought under control with Cardizem. Transfer Discharge Sum: Med Medications Active and Home Medications: Home Medications furosemide 40 mg PO DAILY 10/08/20 [History Confirmed 06/25/21] lisinopril 40 mg PO DAILY 10/08/20 [History Confirmed 06/25/21] GlucaGen Diagnostic Kit 1 mg IM PRN PRN ea 06/13/21 [Rx Confirmed 06/25/21] Xarelto 20 mg PO DAILY #0 tablet 06/13/21 [Rx Confirmed 06/25/21] insulin lispro [Humalog U-100 Insulin] 3 - 6 units SUBCUT TIDWM ml 06/13/21 [Rx Confirmed 06/25/21] metoprolol tartrate 25 mg PO Q12HR tablet 06/13/21 [Rx Confirmed 06/25/21] cephalexin 500 mg PO Q12H #14 cap 06/27/21 [Rx] potassium chloride [K-Tab] 20 meq PO BIDWM #10 tablet 06/27/21 [Rx] Transfer Discharge Sum: Hosp Hospital Course Hospital course: Torrey Fernández is a 61 year old male Who presented with atrial fibrillation with RVR. Found to have chronic wounds that are infected with Pseudomonas. Wounds are in need of debridement and continued intravenous antibiotics. All this can be done as well as cardiology follow at higher level of care. Patient will need to be seen by a surgeon. Remainder of his problems monitored by hospitalist. Time Spent with Patient Time attestation: Total time spent providing and/or coordinating transfer services: Zacarias Foley APN made arrangements please see his transfer summary and progress note for the day. Exam Narrative: Please see the physical exam as completed by Harvey Foley APN and my physical exam as noted in the progress note earlier in the day on 06/13/2021
== END 2021-06-13 22:00 | disposition short-term general hospital (02) | DRG 309 ==
LOC: CHSED 14:45 → CHS2ND 15:35
PROVIDERS: Nurse Practitioner Family; Admitting Provider Emergency Medicine; Emergency Provider Emergency Medicine; PCP Nurse Practitioner Family; Visit Provider Emergency Medicine
DX: I48.20 Chronic atrial fibrillation, unspecified (principal); I50.23 Acute on chronic systolic (congestive) heart failure; I25.10 Atherosclerotic heart disease of native coronary artery without angina pectoris; J44.9 Chronic obstructive pulmonary disease, unspecified; E11.622 Type 2 diabetes mellitus with other skin ulcer; L97.919 Non-pressure chronic ulcer of unspecified part of right lower leg with unspecified severity; Z79.01 Long term (current) use of anticoagulants; Z20.822 Contact with and (suspected) exposure to COVID-19; L97.819 Non-pressure chronic ulcer of other part of right lower leg with unspecified severity; I11.0 Hypertensive heart disease with heart failure; I50.9 Heart failure, unspecified
CPT/HCPCS: 36415; 71045; 71275; 73701; 80048; 80053; 80307; 81001; 82550; 82948; 83605; 83690; 83880; 84484; 85025; 85027; 85380; 85610; 85730; 86140; 87040; 87070; 87075; 87147; 87186; 87205; 93005; 99285; A9270; C9803; J1650; J1956; J2270; Q9967; U0003; U0005

== ENCOUNTER 2021-06-25 08:50 | Observation (INO) | payer OTHER, SELFPAY ==
[2021-06-25] VITALS (8 sets, daily range): BP systolic 112–141; BP diastolic 71–90; PULSE 71–132; RESP 18–20; TEMP 36.1–36.8; O2SAT 96–99; BMI 26.2
--- NOTE | ~2021-06-25 | CT_ITS ---
EXAMINATION: CT brain wo con DATE: 06/25/2021 10:11 INDICATION: Altered mental status and confusion TECHNIQUE: Computed tomography (CT) of the head was performed without intravenous contrast. Sagittal and coronal reconstructions were performed. The mA was adjusted according to patient size. Iterative reconstruction technique was employed. The dose-length product was 681.00 mGy-cm. COMPARISON: head CT dated 01/23/2021 and brain MR dated 01/24/2021 FINDINGS: No acute intracranial hemorrhage, acute infarction or abnormal extra axial fluid collection. Symmetri c prominence of the sulci consistent with mild age-appropriate diffuse cerebral volume loss. Ventricl es are normal and symmetric. No mass/mass effect. The orbits, paranasal sinuses and mastoid air cells are normal. IMPRESSION: 1. Normal aging brain. No acute intracranial process. Reviewed, dictated and finalized at location A. ING ENGINEER
--- NOTE | ~2021-06-25 | US_ITS ---
EXAMINATION: US venous doppler [facility] DATE: 06/26/2021 07:41 INDICATION: Right lower limb swelling and erythema. TECHNIQUE: Grayscale ultrasound images without and with compression and Doppler ultrasound images of the bilateral lower extremity veins were obtained. COMPARISON: None. FINDINGS: The visualized portions of right common femoral vein, profunda (deep) femoral vein, femoral vein, pop liteal vein, posterior tibial veins, and greater saphenous vein outflow are patent. The peroneal vein s are not well visualized. The visualized portions of left common femoral vein, profunda femoral vein, femoral vein, popliteal v ein, peroneal veins, posterior tibial veins, and greater saphenous vein outflow are patent. IMPRESSION: 1. No deep venous thrombosis. Reviewed, dictated and finalized at location E. ULTING MARINE ENGINEER
--- NOTE | ~2021-06-25 | XR_ITS ---
EXAMINATION: XR chest 1V portable DATE: 06/25/2021 10:12 INDICATION: Confusion. TECHNIQUE: A single frontal view of the chest was obtained on 2 radiographs. COMPARISON: Chest single view 06/11/2021, chest CT 06/11/2021 FINDINGS: There is no pneumonia, pleural effusion, or pneumothorax. Cardiomegaly is noted. IMPRESSION: 1. Cardiomegaly. Reviewed, dictated and finalized at location E. DISASTER RECOVERY MANAGER IMPRESSION: 1. Cardiomegaly.
--- NOTE | 2021-06-25 09:00 | ECG_ITS ---
Measurements Intervals Blanca Rate: 113 P: CA: 0 QRS: 44 QRSD: 121 T: -67 QT: 378 QTc: 520 Interpretive Statements ATRIAL FIBRILLATION WITH RAPID VENTRICULAR RESPONSE CANNOT RULE OUT SEPTAL INFARCT, AGE INDETERMINATE BORDERLINE ST-T WAVE ABNORMALITY- INF/LAT LEADS ABNORMAL ECG Electronically Signed On 06-25-2021 9:35:51 PRODUCT MARKETING DIRECTOR by Nish Lock D.O.
[2021-06-25 09:29] LABS: Base Excess ABG -6.4 mmol/L (0-2); HCO3 ABG 17.4 mmol/L (23-29); Oxygen Content ABG 12.1 %vol (16.0-22.0); Oxygen Saturation ABG 96.1 % (95-97); Oxyhemoglobin 95.4 % (94-100); PCO2 ABG 28.5 mmHg (35-45); PO2 ABG 90.2 mmHg (80-90); Total Hemoglobin 8.9 g/dL (12.0-18.0)
[2021-06-25 09:30] LABS: Device ROOM AIR; Modified Allen's Test Pass; Site Drawn RIGHT RADIAL
[2021-06-25 09:33] LABS: Basophils Absolute Auto 0.06 K/mm3 (0.00-0.10); Basophils Percent Auto 0.7 % (0.0-1.0); Eosinophils Absolute Auto 0.07 K/mm3 (0.02-0.50); Eosinophils Percent Auto 0.8 % (1.0-6.0); Hematocrit 33.6 % (40.0-54.0); Hemoglobin 9.9 g/dL (14.0-18.0); Immature Granulocyte Absolute 0.05 K/mm3 (0.00-0.00); Immature Granulocyte Percent A 0.6 % (0.0-0.0); Lymphocytes Absolute Auto 1.03 K/mm3 (1.10-4.50); Lymphocytes Percent Auto 11.5 % (18.0-42.0); Mean Corpuscular HGB Conc 29.5 g/dL (32.0-36.0); Mean Corpuscular Hemoglobin 22.9 pg (27.0-31.0); Mean Corpuscular Volume 77.6 fL (78.0-102.0); Mean Platelet Volume 9.7 fl (8.7-11.0); Monocytes Absolute Auto 0.56 K/mm3 (0.10-0.90); Monocytes Percent Auto 6.3 % (2.0-11.0); Neutrophils Absolute Auto 7.2 K/mm3 (1.7-7.2); Neutrophils Percent Auto 80.1 % (50.0-70.0); Platelet Count Result 439 K/mm3 (150-420); Red Blood Count 4.33 M/mm3 (4.70-6.10); Red Cell Distribution Width 17.2 % (11.6-14.4); White Blood Count 8.9 K/mm3 (4.8-10.8)
[2021-06-25 09:47] LABS: INR 1.1; Partial Thromboplastin Time 28.2 SEC (23.90-30.70)
[2021-06-25 09:55] LABS: Lactic Acid Reflex 1.4 mmol/L (0.4-2.0)
[2021-06-25 10:02] LABS: Alanine Aminotransferase 22 U/L (16-63); Alkaline Phosphatase 69 U/L (46-116); Ammonia < 10 umol/L (11-32); Anion Gap 14 mmol/L (8-16); Aspartate Amino Transferase 23 U/L (15-37); Bilirubin,Total 0.4 mg/dL (0.00-1.00); Blood Urea Nitrogen 29 mg/dL (7-18); Calcium 8.7 mg/dL (8.5-10.1); Carbon Dioxide 24 mmol/L (21-32); Chloride 100 mmol/L (98-108); Creatine Kinase 110 U/L (39-308); Estimated CRCL calculation 43 ml/min; Estimated Glomerular Filt Rate 41; Glucose 134 mg/dL (70-99); Osmolality Calculated 293 mOsm/kg (285-295); Sodium 138 mmol/L (136-145); Thyroid Stimulating Hormone 13.03 uIU/mL (0.36-3.74); Total Protein 7.7 g/dL (6.4-8.2); Troponin I 21.1 ng/L (0.00-60.4)
[2021-06-25 10:06] LABS: CRP 3.1 mg/dL (0.0-0.9)
[2021-06-25 10:07] LABS: NT Pro B Type Natriuretic Pept 14777 pg/mL (0-125)
[2021-06-25 10:09] LABS: SARS-CoV-2 RNA PCR Negative (Negative)
--- NOTE | 2021-06-25 10:30 | ED.AMS ---
HPI - Altered Mental Status General Chief Complaint: Altered Mental Status Stated Complaint: Ambulance Time Seen by Provider: 06/25/21 10:30 Source: patient and EMS Mode of arrival: EMS Limitations: altered mental status History of Present Illness HPI narrative: this is a 61-year-old gentleman a history diabetes and chronic right lower extremity ulcer secondary to his diabetes recently debrided at [facility]. Patient with a history of CHF / cardiomyopathy with an ejection fraction of 30 to 35% with some atrial fibrillation / hypertension and CAD. The patient presents via EMS, family called because the patient was exhibiting altered mental status according to family. Patient appears to be back to his baseline, with no fever chills no shortness of breath no chest pain no nausea or vomiting no abdominal pain no flank pain. Vitals are stable, heart rate is stable at 71 initially on presentation with O2 saturations of up to 100% on room air. Patient has an infectious disease physician at [facility] and was recently admitted toward the middle of May of 2021 and was transferred to [facility] and had extensive debridement of his right lower extremity. Patient is a known methamphetamine user. complaint: altered mental status Onset (ago): hour(s) Time: 10:30 Timing confirmed by: family member Severity: moderate Associated symptoms: denies other symptoms Related Data Home Medications Medication Instructions Recorded Confirmed furosemide 40 mg PO DAILY 10/08/20 06/25/21 lisinopril 40 mg PO DAILY 10/08/20 06/25/21 Allergies Allergy/AdvReac Type Severity Reaction Status Date / Time No Known Allergies Allergy Verified 06/11/21 15:43 Review of Systems Review of Systems: All systems reviewed & are unremarkable except as noted in HPI and below PMFSH Past Medical History Medical History Atrial fibrillation Chronic anticoagulation Congestive heart failure COPD (chronic obstructive pulmonary disease) Coronary artery disease Type 2 diabetes mellitus Family History Family History Other Unknown family medical history Social History Social History Smoking packs per day: 1 Smoking cigarettes per day: 20.0 Years smoked: 15 Smoking pack-years: 15.00 Smoking status: Former smoker Tobacco type: cigarettes Second hand tobacco smoke exposure: Yes Alcohol intake: never Substance use: current Substance use type: methamphetamine Spiritual care concerns: No Exam Const: General: no acute distress and alert Orientation/consciousness: patient oriented x3 HENMT: Head: normal to inspection Eyes: Conjunctivae: conjunctivae normal Pupils: Equal, round and reactive pupils present Neck: Neck: normal visual inspection, no lymphadenopathy and no meningeal signs Chest: Chest palpation & inspection: normal inspection of the chest Resp: Effort & Inspection: normal respiratory effort Auscultation: clear to auscultation bilaterally Cardio: Rate: regular rate Rhythm: abnormal rhythm Heart sounds: Murmur heart sound present GI: GI Palp: Yes Soft to palpation Percussion: Yes normal to percussion Urinary Catheter: Urinary Catheter: patent and draining Back/Spine/Pelvis: Back: no CVA tenderness Skin: General skin exam: normal color Rashes: no rashes Neuro: General: patient oriented x3, moves all extremities, no meningeal signs and no focal motor deficits Extrem: General: normal to inspection and no pedal edema Psych: Appearance: grossly normal Mental Status: mental status grossly normal Affect: normal affect Attitude: cooperative Course Course Emergency Course: Patient initially presented via EMS with altered mental status, the patient answers questions appropriately Um appears to be back to his ba
[2021-06-25] MEDS: FUROSEMIDE INJ 40 MG/4 ML VIAL IV PUSH (10:45)
[2021-06-25 10:58] LABS: Appearance Urine Clear (Clear); Bilirubin Urine Negative (Negative); Color Urine Yellow (Yellow); Glucose Urine UA Negative (Negative); Ketones Urine Negative (Negative); Leukocyte Esterase Ur Negative (Negative); Nitrate Urine Negative (Negative); Protein Urine Trace (Negative); Specific Grav Ur 1.025 (1.010-1.020); Urobilinogen Urine 0.2 mg/dL (0.2-1.0)
[2021-06-25 11:02] LABS: Add Urine Microscopic? YES; Blood Urine Trace-Intact (Negative)
[2021-06-25 11:03] LABS: Bacteria Urine None seen /hpf; Transitional Epi Cells Urine Rare /hpf; WBC Urine 0-3 /hpf (0-3)
[2021-06-25 11:04] LABS: Amphetamine Screen Urine Positive (Negative); Barbiturate Screen Urine Negative (Negative); Benzodiazepines Screen Urine Negative (Negative); Cannabinoid Screen Urine Negative (Negative); Cocaine Screen Urine Negative (Negative); Methadone Screen Urine Negative (Negative); Mucus Urine Few /lpf; Opiate Screen Urine Negative (Negative); Phencyclidine Screen Urine Negative (Negative)
--- NOTE | 2021-06-25 11:20 | PC.NURSE ---
dr lambert spoke with hospitalist vickie regarding admission, pt accepted. orders placed per dr lambert. bed requested and registration notified of admission. awaiting to give report .
--- NOTE | 2021-06-25 12:40 | ADMGEN ---
This patient, Torrey Fernández, was admitted to 2nd Floor Room 226-2 for CHD and hypokalemia. Patient/family oriented to hospital policies and general routines including ID bracelet, bed and alarms, visiting hours, pain management, procedures, bathroom and other care routines, personal items, smoking policy, room service/diet, and visiting hours. Information on how to activate the Rapid Response Team has been discussed. Patient/Family are encouraged to report perceived risks to care and to ask questions if they do not understand what they are told or what they should do.
[2021-06-25] MEDS: HYDROcodone/acetaminophen (*CRX) 5-325 MG TABLET 1 TAB PO ×2 (14:13→21:50)
[2021-06-25 14:19] LABS: Glucose Point of Care 97 mg/dl (65-105)
[2021-06-25] MEDS: POTASSIUM CHLORIDE 20 MEQ TABLET PO (17:29)
[2021-06-25 17:33] LABS: Glucose Point of Care 130 mg/dl (65-105)
[2021-06-25] MEDS: traZODone HCL 50 MG TABLET PO (21:38)
[2021-06-25] MEDS: METOPROLOL TARTRATE 25 MG TABLET PO (21:38)
[2021-06-25 21:47] LABS: Glucose Point of Care 212 mg/dl (65-105)
[2021-06-26] VITALS (9 sets, daily range): BP systolic 94–115; BP diastolic 65–84; PULSE 81–95; RESP 14–18; TEMP 36.2–36.4; O2SAT 97–100
[2021-06-26 05:03] LABS: Basophils Absolute Auto 0.05 K/mm3 (0.00-0.10); Basophils Percent Auto 0.6 % (0.0-1.0); Eosinophils Absolute Auto 0.13 K/mm3 (0.02-0.50); Eosinophils Percent Auto 1.6 % (1.0-6.0); Hematocrit 32.4 % (40.0-54.0); Hemoglobin 9.6 g/dL (14.0-18.0); Immature Granulocyte Absolute 0.03 K/mm3 (0.00-0.00); Immature Granulocyte Percent A 0.4 % (0.0-0.0); Lymphocytes Absolute Auto 1.29 K/mm3 (1.10-4.50); Lymphocytes Percent Auto 15.6 % (18.0-42.0); Mean Corpuscular HGB Conc 29.6 g/dL (32.0-36.0); Mean Corpuscular Hemoglobin 22.5 pg (27.0-31.0); Mean Corpuscular Volume 76.1 fL (78.0-102.0); Mean Platelet Volume 10.1 fl (8.7-11.0); Monocytes Absolute Auto 0.83 K/mm3 (0.10-0.90); Neutrophils Percent Auto 71.8 % (50.0-70.0); Platelet Count Result 430 K/mm3 (150-420); Red Blood Count 4.26 M/mm3 (4.70-6.10); Red Cell Distribution Width 17.2 % (11.6-14.4); White Blood Count 8.3 K/mm3 (4.8-10.8)
--- NOTE | 2021-06-26 05:20 | PC.NURSE ---
Lab called to report a critical d-dimer of 1.12.
[2021-06-26 05:21] LABS: D Dimer 1.12 mg/L (0.19-0.50)
[2021-06-26 05:26] LABS: Alanine Aminotransferase 20 U/L (16-63); Albumin Level 2.5 g/dL (3.4-5.0); Alkaline Phosphatase 59 U/L (46-116); Anion Gap 8 mmol/L (8-16); Aspartate Amino Transferase 17 U/L (15-37); Bilirubin,Total 0.5 mg/dL (0.00-1.00); Blood Urea Nitrogen 19 mg/dL (7-18); Calcium 8.1 mg/dL (8.5-10.1); Carbon Dioxide 30 mmol/L (21-32); Chloride 102 mmol/L (98-108); Estimated CRCL calculation 59 ml/min; Estimated Glomerular Filt Rate > 60; Glucose 99 mg/dL (70-99); Magnesium 1.8 mg/dL (1.8-2.4); NT Pro B Type Natriuretic Pept 7149 pg/mL (0-125); Osmolality Calculated 292 mOsm/kg (285-295); Potassium 2.8 mmol/L (3.5-5.1); Sodium 140 mmol/L (136-145); Total Protein 6.7 g/dL (6.4-8.2)
--- NOTE | 2021-06-26 05:45 | PC.NURSE ---
Jennifer Ortiz NP, notified of critical test results; No new orders at this time.
[2021-06-26 08:07] LABS: Glucose Point of Care 100 mg/dl (65-105)
[2021-06-26] MEDS: FUROSEMIDE INJ 40 MG/4 ML VIAL IV PUSH (08:44)
[2021-06-26] MEDS: lisinopriL 20 MG TABLET 40 MG PO (08:44)
[2021-06-26] MEDS: POTASSIUM CHLORIDE 20 MEQ TABLET PO ×2 (08:45→18:18)
[2021-06-26] MEDS: RIVAROXABAN 10 MG TABLET PO (08:45)
[2021-06-26] MEDS: METOPROLOL TARTRATE 25 MG TABLET PO ×2 (08:45→21:30)
[2021-06-26] MEDS: SODIUM CHLORIDE 0.9% IV 1,000 ML 50 ML IV CONT (08:46)
[2021-06-26] MEDS: KCL 20 MEQ/SW 100 ML 100 ML 50 MEQ IVPB (08:46)
[2021-06-26 12:10] LABS: Glucose Point of Care 144 mg/dl (65-105)
[2021-06-26 14:05] LABS: Potassium 3.4 mmol/L (3.5-5.1)
--- NOTE | 2021-06-26 14:11 | PM.IMPN ---
Progress Note: A&P Assessment and Plan (1) CHF exacerbation: Qualifiers: Heart failure type: systolic Qualified Code(s): I50.23 - Acute on chronic systolic (congestive) heart failure Code(s): I50.9 - Heart failure, unspecified Status: Acute Assessment and Plan: BNP 7149 Elevate legs heart healthy diet monitor salt intake ekg monitor monitor labs IV lasix Take medication as precribed (2) Acute hypokalemia: Code(s): E87.6 - Hypokalemia Status: Acute Assessment and Plan: K 2.8...3.4 Oral potassium IV k lorri today completed w repeated level ekg monitor repeat labs in the am (3) Acute exacerbation of CHF (congestive heart failure): Code(s): I50.9 - Heart failure, unspecified Status: Acute (4) Lower extremity ulceration: Code(s): L97.909 - Non-pressure chronic ulcer of unspecified part of unspecified lower leg with unspecified severity Status: Acute Assessment and Plan: Consult for wound clinic as outpatient Wet to dry dressing Bilateral lower extremity Doppler Negative for DVT (5) Infected wound: Code(s): T14.8XXA - Other injury of unspecified body region, initial encounter; L08.9 - Local infection of the skin and subcutaneous tissue, unspecified Status: Acute Assessment and Plan: IV Zosyn Elevate legs Dopplers Negative for DVT Keep area clean and DRy [facility] (6) Elevated d-dimer: Code(s): R79.89 - Other specified abnormal findings of blood chemistry Status: Acute Assessment and Plan: pt on Eliquis Doppler of bilateral legs negative Treatment will remain the same with no changes. Subjective Date/time seen: 06/26/21 14:11 Patient is feeling a lot better with no pain or shortness of breath ability to understand him is a lot better. Patient currently states he is being put out of his home with no where to go. At this time I saw patient we were waiting on doppler which turns out to be negative, Patient potassium was 2.8 kyrider give currently 3.4 he will stay on alarm security or surveillance monitor and on oral potassium we will discharge in am if everything remains stable. Review of Systems Review of Systems: All systems reviewed & are unremarkable except as noted in HPI and below Constitutional: Constitutional: Reports as per HPI Eyes: Eyes: Reports as per HPI ENT: Reports system reviewed and no additional complaints, except as documented Cardiovascular: Cardiovascular: Reports as per HPI Respiratory: Respiratory: Reports as per HPI Gastrointestinal: Gastrointestinal: Reports as per HPI Musculoskeletal: Musculoskeletal: Reports radiating pain into limb and Reports other (right leg wound noted with bilaeral feet discoloration and pain ) Integumentary/Breasts: Skin/Breast: Reports system reviewed and no additional complaints, except as docu Neurologic: Reports system reviewed and no additional complaints, except as documented Allergic/Immunologic: Allergic/Immunologic: Reports no additional allergic/immunologic complaints Exam Narrative: GENERAL:Well-appearing, disheveled and in no acute distress. HEAD:Normocephalic, EYES: PERRLA ENT: Nares clear, no rhinorrhea Mucous membranes dry. Speech is somewhat garble difficult to understand at time CHEST: Clear to auscultation. No respiratory distress. HEART: Regular rate and rhythm. decreased peripheral pulses. ABDOMEN: Soft, nontender, nondistended, normal active bowel sounds. EXTREMITIES: decreaed range of motion. 1-2 +edema bilateral legs SKIN: Warm, dry, no rash. NEURO: No focal deficits. Alert and oriented x3. Objective Data Vital Signs Vital Signs: Vital Signs - 24 hr 06/25/21 16:30 06/25/21 16:40 06/25/21 20:00 Temperature 97 F L Pulse Rate 105 H 114 H 132 H Respiratory Rate 18 Blood Pressure 112/71 Pulse Oximetry 99 06/25/21 21:38 06/26/21 00:00 06/26/21 04:00 Temperature 97.6 F P
[2021-06-26] MEDS: HYDROcodone/acetaminophen (*CRX) 5-325 MG TABLET 1 TAB PO ×2 (14:50→21:30)
[2021-06-26 18:27] LABS: Glucose Point of Care 139 mg/dl (65-105)
[2021-06-26 21:44] LABS: Glucose Point of Care 124 mg/dl (65-105)
[2021-06-27] VITALS (8 sets, daily range): BP systolic 91–106; BP diastolic 62–72; PULSE 72–98; RESP 17–20; TEMP 36.2–36.4; O2SAT 95–99
[2021-06-27] MEDS: traZODone HCL 50 MG TABLET PO (00:49)
[2021-06-27 07:07] LABS: Hematocrit 36.8 % (40.0-54.0); Hemoglobin 10.6 g/dL (14.0-18.0); Mean Corpuscular HGB Conc 28.8 g/dL (32.0-36.0); Mean Corpuscular Hemoglobin 22.4 pg (27.0-31.0); Mean Corpuscular Volume 77.6 fL (78.0-102.0); Mean Platelet Volume 9.8 fl (8.7-11.0); Platelet Count Result 465 K/mm3 (150-420); Red Blood Count 4.74 M/mm3 (4.70-6.10); Red Cell Distribution Width 16.9 % (11.6-14.4); White Blood Count 8.1 K/mm3 (4.8-10.8)
[2021-06-27 07:18] LABS: Anion Gap 8 mmol/L (8-16); Blood Urea Nitrogen 25 mg/dL (7-18); Calcium 8.1 mg/dL (8.5-10.1); Carbon Dioxide 31 mmol/L (21-32); Chloride 98 mmol/L (98-108); Estimated CRCL calculation 50 ml/min; Estimated Glomerular Filt Rate 50; Glucose 97 mg/dL (70-99); Osmolality Calculated 288 mOsm/kg (285-295); Potassium 3.1 mmol/L (3.5-5.1); Sodium 137 mmol/L (136-145)
[2021-06-27] MEDS: HYDROcodone/acetaminophen (*CRX) 5-325 MG TABLET 1 TAB PO ×2 (08:02→21:56)
[2021-06-27 08:07] LABS: Glucose Point of Care 99 mg/dl (65-105)
[2021-06-27] MEDS: FUROSEMIDE INJ 40 MG/4 ML VIAL IV PUSH (08:31)
[2021-06-27] MEDS: lisinopriL 20 MG TABLET 40 MG PO (08:32)
[2021-06-27] MEDS: RIVAROXABAN 10 MG TABLET PO (08:32)
[2021-06-27] MEDS: METOPROLOL TARTRATE 25 MG TABLET PO ×2 (08:32→21:10)
[2021-06-27] MEDS: POTASSIUM CHLORIDE 20 MEQ TABLET PO ×2 (08:33→17:19)
--- NOTE | 2021-06-27 09:23 | PC.NURSE ---
Gizzard Puller removed urinary catheter per PROFESSOR CRIMINAL JUSTICE directive. Patient tolerated well. 200 ml light yellow urine in bag at time of removal.
[2021-06-27 11:42] LABS: Glucose Point of Care 154 mg/dl (65-105)
--- NOTE | 2021-06-27 12:00 | PM.DS ---
DS: Admitting Diagnosis Discharge Date 06/27/2021 Admitting Diagnosis Drug overdose, hypokalemia DS: Discharge Diagnosis Discharge Diagnosis (1) Acute hypokalemia: Code(s): E87.6 - Hypokalemia Status: Acute Assessment and Plan: K 2.8...3.4...3.1 Oral potassium monitoring manager repeat labs in the am (2) Drug abuse: Code(s): F19.10 - Other psychoactive substance abuse, uncomplicated Status: Acute Assessment and Plan: Drug cessation smoking cessation (3) CHF exacerbation: Qualifiers: Heart failure type: systolic Qualified Code(s): I50.23 - Acute on chronic systolic (congestive) heart failure Code(s): I50.9 - Heart failure, unspecified Status: Acute Assessment and Plan: BNP 7149 Elevate legs heart healthy diet monitor salt intake monitoring manager monitor labs IV Lasix changed to oral Lasix Take medication as prescribed (4) Infected wound: Code(s): T14.8XXA - Other injury of unspecified body region, initial encounter; L08.9 - Local infection of the skin and subcutaneous tissue, unspecified Status: Acute Assessment and Plan: IV Zosyn changed to Keflex as outpatient Elevate legs Doppler Negative for DVT Keep area clean and Dry [facility] will call your phone for a appointment or make sure you follow up with [facility] where you had it debrided at (5) Elevated d-dimer: Code(s): R79.89 - Other specified abnormal findings of blood chemistry Status: Acute Assessment and Plan: pt on Eliquis Doppler of bilateral legs negative Treatment will remain the same with no changes. DS: Summary Hospital Course Reason for hospitalization: Unresponsive after using fentanyl Hospital Course: This is a 61-year-old male that was admitted with hypokalemia and drug overdose patient was witnessed by family. Family states that patient was having altered mental status but prior to coming to the hospital he was back at baseline. Patient is a known methamphetamine user who currently has a right lower extremity wound that he has had for a while was debrided in May 2021 at [facility] wet-to-dry dressing was applied patient is aware of diagnosis, understands and agrees to treatment plan. Anticipatory guidance given. Patient agrees to follow-up as directed and is aware of reasons to seek care at the emergency department. Peripheral circulation on bilateral feet was noted. Patient was found to be hypokalemic while here he was treated with oral and IV potassium which at 1 point potassium had resolved and was 3.4 currently 3.1 he will go home on oral potassium. I did start patient oral antibiotics and the wound clinic will call for an appointment patient is alert and oriented talking. Patient has been able to eat and drink white blood count within normal limits he has remained afebrile. s Time Spent with Patient Time attestation: Total time spent providing and/or coordinating discharge services: Exam Narrative: GENERAL:Well-appearing, disheveled and in no acute distress. HEAD:Normocephalic, EYES: PERRLA ENT: Nares clear, no rhinorrhea Mucous membranes dry. Speech is somewhat garble difficult to understand at time CHEST: Clear to auscultation. No respiratory distress. HEART: Regular rate and rhythm. decreased peripheral pulses. ABDOMEN: Soft, nontender, nondistended, normal active bowel sounds. EXTREMITIES: decreaed range of motion. 1-2 +edema bilateral legs wet to dry dressing bilateral feet have decreased circulation SKIN: Warm, dry, no rash. NEURO: No focal deficits. Alert and oriented x3. DS: Data Data Completed and Pending Labs on day of discharge: Labs from last 24 hours 06/27/21 06/27/21 06/27/21 11:35 08:02 06:49 WBC RBC Hgb Hct MCV MCH MCHC RDW Plt Count MPV Sodium 137 Potassium 3.1 L Chloride 98 Carbon Dioxide 31 Anion G
[2021-06-27 17:09] LABS: Glucose Point of Care 102 mg/dl (65-105)
--- NOTE | 2021-06-27 18:52 | PC.NURSE ---
Staff has called numerous numbers for rides to apple picking supervisor patient. Two different rides so far have not shown up. Will continue to try to discharge patient to home.
--- NOTE | 2021-06-27 23:15 | PC.NURSE ---
Patient has been discharged prior to this shift. Numerous attempts have been made to locate someone who can take the patient home. Although some of those contacted said they would come to take him home, no one has actually arrived. The Nurse Sawmill Equipment Operator stated that we will not be able to give this patient medication or food after midnight. He can sleep in his previous bed on the second floor and leave in the morning, or go down to ED and wait for a ride there. Nothing else can be charted on this patient after midnight.
--- NOTE | 2021-06-28 08:09 | PC.NURSE ---
Addendum entered by Antonella Forbes RN 06/28/21 08:12: patient was discharged on 06-27-21 @ 1230. staff has made several calls yesterday and today. cab services, friends, family, and police department. several never would not answer. 2 different friends said they would but at this time still have not shown. patient has no money on person or debit/credit card. found one service that would take him home on his honor but he refused to pay $40 because it is to high. cab service not answering this am and police department unable to help us out. Original Note: 0730 patient finally found ride home and left floor per wc to private vehicle.
--- NOTE | 2021-06-29 12:56 | PM.IMHP ---
H&P: HPI History of Present Illness Date/Time: 06/26/21 0900 This is a 61-year-old male that presented to the emergency room with a drug overdose according to family he was acting differently and acting confused although he had returned to his baseline prior to getting to the hospital. Patient has a chronic wound to his left lower extremity that have been debrided in May at [facility]. Patient was found to have elevated D-dimer which was negative for a PE of the CT. Patient was found to be hypokalemic although he denied any chest pains or shortness of breath or any other cardiac symptoms at this time patient will be treated for hypokalemia and and congestive heart failure. We will also do wet-to-dry dressings to treat patient's leg wound Chief Complaint: chf , drug abuse Review of Systems Review of Systems: All systems reviewed & are unremarkable except as noted in HPI and below Constitutional: Constitutional: Reports as per HPI Eyes: Eyes: Reports as per HPI ENT: Reports system reviewed and no additional complaints, except as documented Cardiovascular: Cardiovascular: Reports as per HPI Respiratory: Respiratory: Reports as per HPI Gastrointestinal: Gastrointestinal: Reports as per HPI Musculoskeletal: Musculoskeletal: Reports radiating pain into limb and Reports other (right leg wound noted with bilaeral feet discoloration and pain ) Integumentary/Breasts: Skin/Breast: Reports system reviewed and no additional complaints, except as docu Neurologic: Reports system reviewed and no additional complaints, except as documented Allergic/Immunologic: Allergic/Immunologic: Reports no additional allergic/immunologic complaints PMFSH Past Medical History Medical History Atrial fibrillation Chronic anticoagulation Congestive heart failure COPD (chronic obstructive pulmonary disease) Coronary artery disease Type 2 diabetes mellitus Family History Family History Other Unknown family medical history Social History Social History Smoking packs per day: 1 Smoking cigarettes per day: 20.0 Years smoked: 15 Smoking pack-years: 15.00 Smoking status: Former smoker Tobacco type: cigarettes Second hand tobacco smoke exposure: Yes Alcohol intake: former Substance use: current Substance use type: methamphetamine Spiritual care concerns: No Meds Home Medications and Allergies Home Medications Medication Instructions Recorded Confirmed Type furosemide 40 mg PO DAILY 10/08/20 06/25/21 History lisinopril 40 mg PO DAILY 10/08/20 06/25/21 History GlucaGen Diagnostic Kit 1 mg IM PRN PRN ea 06/13/21 06/25/21 Rx Xarelto 20 mg PO DAILY #0 tablet 06/13/21 06/25/21 Rx insulin lispro [Humalog U-100 3 - 6 units SUBCUT TIDWM ml 06/13/21 06/25/21 Rx Insulin] metoprolol tartrate 25 mg PO Q12HR tablet 06/13/21 06/25/21 Rx cephalexin 500 mg PO Q12H #14 cap 06/27/21 Rx potassium chloride [K-Tab] 20 meq PO BIDWM #10 tablet 06/27/21 Rx Allergies Allergy/AdvReac Type Severity Reaction Status Date / Time No Known Allergies Allergy Verified 06/11/21 15:43 Exam Narrative: GENERAL:Well-appearing, disheveled and in no acute distress. HEAD:Normocephalic, EYES: PERRLA ENT: Nares clear, no rhinorrhea Mucous membranes dry. Speech is somewhat garble difficult to understand at time CHEST: Clear to auscultation. No respiratory distress. HEART: Regular rate and rhythm. decreased peripheral pulses. ABDOMEN: Soft, nontender, nondistended, normal active bowel sounds. EXTREMITIES: decreaed range of motion. 1-2 +edema bilateral legs wet to dry dressing bilateral feet have decreased circulation SKIN: Warm, dry, no rash. NEURO: No focal deficits. Alert and oriented x3. Assessment and Plan Assessment and plan (1) Drug abuse: Co
--- NOTE | 2021-07-03 13:36 | PC.NURSE ---
Unable to contact for discharge call back.
[2021-08-13 11:43] LABS: Glucose Point of Care 104 mg/dl (65-105)
== END 2021-06-27 12:30 | disposition home or self-care (01) ==
LOC: CHSED 11:22 → CHS2ND 11:37
PROVIDERS: Nurse Practitioner Family; Admitting Provider Emergency Medicine; Emergency Provider Emergency Medicine; PCP Nurse Practitioner Family; Visit Provider Emergency Medicine
DX: I11.0 Hypertensive heart disease with heart failure (principal); I50.9 Heart failure, unspecified; E11.622 Type 2 diabetes mellitus with other skin ulcer; L97.919 Non-pressure chronic ulcer of unspecified part of right lower leg with unspecified severity; E87.6 Hypokalemia; I42.9 Cardiomyopathy, unspecified; I48.20 Chronic atrial fibrillation, unspecified; I25.10 Atherosclerotic heart disease of native coronary artery without angina pectoris; J44.9 Chronic obstructive pulmonary disease, unspecified; M79.605 Pain in left leg; M79.604 Pain in right leg; R79.1 Abnormal coagulation profile; F15.10 Other stimulant abuse, uncomplicated; Z20.822 Contact with and (suspected) exposure to COVID-19; Z79.01 Long term (current) use of anticoagulants; Z79.899 Other long term (current) drug therapy
CPT/HCPCS: 36415; 36600; 70450; 71045; 80048; 80053; 80307; 81001; 82140; 82550; 82805; 82948; 83605; 83735; 83880; 84132; 84443; 84484; 85025; 85027; 85380; 85610; 85730; 86140; 87040; 93005; 93970; 96365; 96366; 96367; 96375; 96376; 99285; A9270; C9803; G0378; J1940; J2543; J3480; J7030; J7050; U0003; U0005

== ENCOUNTER 2021-08-23 08:14 | Inpatient (IN) | payer OTHER, SELFPAY ==
[2021-08-23] VITALS (14 sets, daily range): BP systolic 90–132; BP diastolic 47–96; PULSE 74–150; RESP 16–20; TEMP 36.4–37.8; O2SAT 95–100; BMI 24.7
--- NOTE | ~2021-08-23 | XR_ITS ---
EXAMINATION: XR chest 1V portable INDICATION: Cough and shortness of breath TECHNIQUE: Portable AP chest at 0908 hours COMPARISON: 06/25/2021 FINDINGS: The lungs are free of acute opacities. There is no pleural effusion or pneumothorax. Cardio megaly is noted. Cranial migration of the humeral heads with respect to the glenoids suggests chronic rotator cuff tear. IMPRESSION: 1. Cardiomegaly. Reviewed, dictated and finalized at location A. IMPRESSION: 1. Cardiomegaly.
--- NOTE | 2021-08-23 08:30 | ED.SOB ---
HPI - SOB/Dyspnea General Chief Complaint: Shortness of Breath/Dyspnea Stated Complaint: ambulance Time Seen by Provider: 08/23/21 08:20 Source: patient, EMS and RN notes reviewed Mode of arrival: EMS Limitations: no limitations History of Present Illness MD elicited complaint: shortness of breath and cough Pertinent past history: COPD, congestive heart failure and diabetes Related Data Home Medications Medication Instructions Recorded Confirmed furosemide 40 mg PO DAILY 10/08/20 08/23/21 lisinopril 40 mg PO DAILY 10/08/20 08/23/21 albuterol sulfate 2 puff INHALATION PRN 08/23/21 08/23/21 buspirone 30 mg PO DAILY 08/23/21 08/23/21 citalopram 20 mg PO DAILY 08/23/21 08/23/21 metformin 500 mg PO BID 08/23/21 08/23/21 Allergies Allergy/AdvReac Type Severity Reaction Status Date / Time No Known Allergies Allergy Verified 06/11/21 15:43 [facility] Past Medical History Medical History Atrial fibrillation Chronic anticoagulation Congestive heart failure COPD (chronic obstructive pulmonary disease) Coronary artery disease Type 2 diabetes mellitus Family History Family History Other Unknown family medical history Social History Social History Smoking packs per day: 1 Smoking cigarettes per day: 20.0 Years smoked: 15 Smoking pack-years: 15.00 Smoking status: Former smoker Tobacco type: cigarettes Second hand tobacco smoke exposure: Yes Alcohol intake: former Substance use: current Substance use type: methamphetamine Spiritual care concerns: No Exam Const: General: no acute distress, alert and ill appearing chronically Orientation/consciousness: patient oriented x3 HENMT: Head: normal to inspection Ears: external ears normal Mouth: Yes moist mucous membranes Eyes: Conjunctivae: conjunctivae normal Pupils: Equal, round and reactive pupils present EOM: EOMs intact bilaterally Neck: Neck: normal visual inspection Resp: Auscultation: wheezes expiratory wheezes and scattered wheezes and diminished lung sounds diffuse Cardio: Rate: tachycardic Rhythm: abnormal rhythm irregularly irregular GI: GI Palp: Yes Soft to palpation and No Tenderness to palpation present (GI) Auscultation: normal bowel sounds Back/Spine/Pelvis: Cervical Spine: cervical ROM normal Thoracic/Lumbar Spine: thoraco-lumbar ROM normal Skin: General skin exam: normal color Wounds: wounds noted Other: extensive wounds on the bilateral lower extremities right larger than left consistent with previously debrided wounds with exposed tissue with serous drainage. Very tender to the touch. No evidence of any warmth. No evidence of any surrounding erythema at the wound edges. These have been previously debrided. Wounds on the right extends from the proximal lower leg just inferior to the knee extending down to the ankle. On the left wound begins at the mid schwarz anteriorly wraps around medially and extends down to just proximal to the ankle. Neuro: General: moves all extremities and no focal motor deficits Extrem: General: normal exam except as noted (in skin exam) and no pedal edema Psych: Mental Status: mental status grossly normal Affect: normal affect Attitude: cooperative Thought content: Yes Normal thought content present Course Course Emergency Course: Wounds on his lower extremities are redressed with Telfa and Kerlix. We do not have the ointment that he has been using and he did not bring it from home. Consultations Consultation #1: Cliff Feliz APN Second call placed to Cliff at 12:33. I called the alternative number wanda answered and stated that she was not customer service and sales consultant despite the schedule showing that she is on for today. She advised me to call Ning Ortiz APN. Date: 08/23/21 Time: 11:18 Consultation #2: Ning Ortiz APN Ret
--- NOTE | 2021-08-23 08:57 | ECG_ITS ---
Measurements Intervals [place] Rate: 132 P: MD: 0 QRS: 60 QRSD: 109 T: 0 QT: 288 QTc: 427 Interpretive Statements ATRIAL FIBRILLATION WITH RAPID VENTRICULAR RESPONSE ST DEVIATION AND MODERATE T-WAVE ABNORMALITY, CONSIDER LATERAL ISCHEMIA [-0.1+ mV T- WAVE IN I/aVL/V5/V6] COMPARED TO ECG 06/25/2021 09:23:08 NO SIGNIFICANT CHANGES Electronically Signed On 08-25-2021 14:15:40 CDT by Niki Holt M.D.
[2021-08-23 09:05] LABS: Basophils Absolute Auto 0.05 K/mm3 (0.00-0.10); Basophils Percent Auto 0.4 % (0.0-1.0); Eosinophils Absolute Auto 0.17 K/mm3 (0.02-0.50); Eosinophils Percent Auto 1.4 % (1.0-6.0); Hematocrit 27.4 % (40.0-54.0); Hemoglobin 8.1 g/dL (14.0-18.0); Immature Granulocyte Absolute 0.06 K/mm3 (0.00-0.00); Immature Granulocyte Percent A 0.5 % (0.0-0.0); Lymphocytes Absolute Auto 1.39 K/mm3 (1.10-4.50); Lymphocytes Percent Auto 11.1 % (18.0-42.0); Mean Corpuscular HGB Conc 29.6 g/dL (32.0-36.0); Mean Platelet Volume 9.1 fl (8.7-11.0); Monocytes Absolute Auto 1.45 K/mm3 (0.10-0.90); Monocytes Percent Auto 11.5 % (2.0-11.0); Neutrophils Absolute Auto 9.5 K/mm3 (1.7-7.2); Neutrophils Percent Auto 75.1 % (50.0-70.0); Platelet Count Result 397 K/mm3 (150-420); Red Blood Count 3.86 M/mm3 (4.70-6.10); Red Cell Distribution Width 18.9 % (11.6-14.4); White Blood Count 12.6 K/mm3 (4.8-10.8)
[2021-08-23] MEDS: dilTIAZem HCl INJ 25 MG/5 ML VIAL 20 MG IV PUSH (09:10)
[2021-08-23 09:21] LABS: Alanine Aminotransferase 17 U/L (16-63); Albumin Level 2.2 g/dL (3.4-5.0); Alkaline Phosphatase 58 U/L (46-116); Anion Gap 11 mmol/L (8-16); Aspartate Amino Transferase 16 U/L (15-37); Bilirubin,Total 0.2 mg/dL (0.00-1.00); Blood Urea Nitrogen 24 mg/dL (7-18); Calcium 8.2 mg/dL (8.5-10.1); Carbon Dioxide 22 mmol/L (21-32); Chloride 101 mmol/L (98-108); Estimated Glomerular Filt Rate > 60; Glucose 110 mg/dL (70-99); Magnesium 1.6 mg/dL (1.8-2.4); Osmolality Calculated 283 mOsm/kg (285-295); Sodium 134 mmol/L (136-145); Total Protein 6.9 g/dL (6.4-8.2)
[2021-08-23 09:22] LABS: CRP > 10.6 mg/dL (0.0-0.9)
[2021-08-23 09:26] LABS: Lactic Acid Reflex 0.9 mmol/L (0.4-2.0)
[2021-08-23] MEDS: dilTIAZem 100 MG/100 ML 100 MG/100 ML BAG 10 MG IV CONT (09:28)
--- NOTE | 2021-08-23 10:32 | PC.NURSE ---
PT HAS BEEN ADVISED FOR THE NEED OF URINE SEVERAL TIMES. PT IS RESTING ON STRETCHER WITH IV MEDICATIONS INFUSING ORDERED WITHOUT DIFFICULTY. NAD NOTED. WILL CONTINUE TO MONITOR.
[2021-08-23 11:00] LABS: Amphetamine Screen Urine Positive (Negative); Barbiturate Screen Urine Negative (Negative); Benzodiazepines Screen Urine Negative (Negative); Cannabinoid Screen Urine Negative (Negative); Cocaine Screen Urine Negative (Negative); Methadone Screen Urine Negative (Negative); Opiate Screen Urine Negative (Negative)
[2021-08-23 11:02] LABS: NT Pro B Type Natriuretic Pept 5745 pg/mL (0-125)
[2021-08-23] MEDS: MAGNESIUM OXIDE 400 MG TABLET PO (12:06)
[2021-08-23] MEDS: POTASSIUM BICARBONATE 25 MEQ TABEF 50 MEQ PO (12:06)
[2021-08-23] MEDS: FUROSEMIDE INJ 40 MG/4 ML VIAL 60 MG IV PUSH (12:06)
--- NOTE | 2021-08-23 14:20 | PC.NURSE ---
Patient admitted to room 204. Transported from ER via stretcher with 3 staff assist for transfer from stretcher to bed. Patient orientated to call light and room environment. Education provided on use of oral anticoagulants and CHF.
[2021-08-23 16:35] LABS: Glucose Point of Care 133 mg/dl (65-105)
--- NOTE | 2021-08-23 17:10 | PC.NURSE ---
1640 cena aware of need for diet and bp on admit was 102/65 and now is 90/48. temp up to 99.8. tele is 80-100's a-fib. he is also wanting pain meds.
--- NOTE | 2021-08-23 17:12 | PM.EVENT ---
Event Note Event Note Event Note: /Patient was brought to the floor heart rate remains A fib blood pressure currently 90/47 patient starting to have a temperature and he is having some shortness of breath at this time oxygen is being added Call placed to mary ell[facility] in attempt to transfer patient. I will also attempt other hospital if they are not as patient is unstable at this time and there is no ICU for patient and he is curently in CHF with BNP greater than 5000
[2021-08-23] MEDS: POTASSIUM CHLORIDE 20 MEQ TABLET PO (18:23)
[2021-08-23] MEDS: SODIUM CHLORIDE 0.9% IV 500 ML IV CONT (18:30)
--- NOTE | 2021-08-23 18:30 | PM.EVENT ---
Event Note Event Note Event Note: Calll placed to [facility] spoke hospitalist who feel patient needs to be in ICU and Statistical Methods Professor will call back soon
--- NOTE | 2021-08-23 19:33 | P.PNCROSS_ITS ---
Event Note Event Note Event Note: Dr. Martini from ICU at [facility] has accepted patient for ICU admission
--- NOTE | 2021-08-23 19:33 | PM.EVENT ---
Event Note Event Note Event Note: Dr. Martini from ICU at [facility] has accepted patient for ICU admission
--- NOTE | 2021-08-23 19:35 | PM.TDS ---
Transfer Discharge Sum: Prov Provider Date of admission: 08/23/21 14:07 Primary care physician: UNKNOWN,DOCTOR Admitting clinician: Jarad Arce MD Consults: 08/23/21 Wound/ET Consult Routine Reason for Consult:: Leg wounds bilateral DS: Admitting Diagnosis Discharge Date 08/23/2021 Admitting Diagnosis CHF, Afib rve DS: Discharge Diagnosis Discharge Diagnosis (1) Hypotension: Code(s): I95.9 - Hypotension, unspecified Status: Acute Assessment and Plan: will start norepi if patient is heart rate is less than 110 transferred to [facility] (2) Hypomagnesemia: Code(s): E83.42 - Hypomagnesemia Status: Acute Assessment and Plan: oral magnesium given in the emergency (3) Hypokalemia: Code(s): E87.6 - Hypokalemia Status: Acute Assessment and Plan: oral potassium given this (4) CHF exacerbation: Qualifiers: Heart failure type: systolic Qualified Code(s): I50.23 - Acute on chronic systolic (congestive) heart failure Code(s): I50.9 - Heart failure, unspecified Status: Acute Assessment and Plan: afib rvr is resolved at the moment cardizem stopped afib (5) Atrial fibrillation with RVR: Code(s): I48.91 - Unspecified atrial fibrillation Status: Acute Transfer Discharge Sum: Med Medications Active and Home Medications: Home Medications furosemide 40 mg PO DAILY 10/08/20 [History Confirmed 08/23/21] lisinopril 40 mg PO DAILY 10/08/20 [History Confirmed 08/23/21] GlucaGen Diagnostic Kit 1 mg IM PRN PRN ea 06/13/21 [Rx Confirmed 08/23/21] Xarelto 20 mg PO DAILY #0 tablet 06/13/21 [Rx Confirmed 08/23/21] metoprolol tartrate 25 mg PO Q12HR tablet 06/13/21 [Rx Confirmed 08/23/21] potassium chloride [K-Tab] 20 meq PO BIDWM #10 tablet 06/27/21 [Rx Confirmed 08/23/21] albuterol sulfate 2 puff INHALATION PRN 08/23/21 [History Confirmed 08/23/21] buspirone 30 mg PO DAILY 08/23/21 [History Confirmed 08/23/21] citalopram 20 mg PO DAILY 08/23/21 [History Confirmed 08/23/21] metformin 500 mg PO BID 08/23/21 [History Confirmed 08/23/21] Active Medications Acetaminophen (Acetaminophen 325 Mg Tablet) 650 mg PO Q4H PRN PRN Reason: Mild Pain (1-3) or Fever Hydrocodone Bitart/Acetaminophen (Hydrocodone/Acetaminophen (*Crx) 7.5-325 Mg Tablet) 1 tab PO Q6H PRN PRN Reason: Pain Rated 7-10 Dextrose (Dextrose 50% 25 Gm/50 Ml Syringe) 12.5 gm IV PUSH PRN PRN; Protocol PRN Reason: Hypoglycemia Docusate Sodium (Docusate Sodium 100 Mg Capsule) 100 mg PO DAILY DANIELA Furosemide (Furosemide 40 Mg Tablet) 40 mg PO DAILY DANIELA Glucagon (Glucagon For Inj 1 Mg Vial) 1 mg IM PRN PRN; Protocol PRN Reason: Hypoglycemia Glucose (Glucose Oral Gel 15 Gm Of Glucse In 37.5 Gm Tube) 15 gm PO PRN PRN; Protocol PRN Reason: Hypoglycemia Dextrose (Dextrose 5% 1,000 Ml) 1,000 mls @ 100 mls/hr IVPB PRN PRN; Protocol PRN Reason: Hypoglycemia Imipenem/Cilastatin Sodium (Primaxin 500 Mg/D5w 100 Ml) 500 mg in 100 mls @ 300 mls/hr IVPB Q6HR [facility] Last Infusion: 08/23/21 19:10 Dose: Infused Documented by: Vancomycin HCl (Vancomycin 1,250 Mg/D5w 250 Ml) 1,250 mg in 250 mls @ 200 mls/hr IVPB Q18H [facility] Metoprolol Tartrate (Metoprolol Tartrate 25 Mg Tablet) 25 mg PO Q12HR [facility] Ondansetron HCl (Ondansetron Inj 4 Mg/2 Ml Vial) 4 mg IV PUSH Q6H PRN PRN Reason: Nausea And Vomiting Pantoprazole Sodium (Pantoprazole Sodium Iv 40 Mg Vial) 40 mg IV PUSH DAILY [facility] Potassium Chloride (Potassium Chloride 20 Meq Tablet) 20 meq PO BIDWM [facility] Last Admin: 08/23/21 18:23 Dose: 20 meq Documented by: Rivaroxaban (Rivaroxaban 10 Mg Tablet) 20 mg PO DAILY [facility] Stop: 09/23/21 08:59 Trazodone HCl (Trazodone Hcl 50 Mg Tablet) 50 mg PO HS PRN PRN Reason: Insomnia Transfer Discharge Sum: Hosp Hospital Course Hospital course: Torrey Fernández is a 61 year old male was reported patient was stable w Afib w rvr Once on the floor pt was found to be unstable and se
[2021-08-23] MEDS: ACETAMINOPHEN 325 MG TABLET 650 MG PO (20:42)
[2021-08-23] MEDS: METOPROLOL TARTRATE 25 MG TABLET PO (20:45)
--- NOTE | 2021-08-23 20:45 | PC.NURSE ---
Patient was transferred to [facility], cardiac ICU unit. Patient was transferred by [facility] at 2044. Patient was medically stable for transport. Report was called to Rachel, receiving nurse from [facility]. Patient's cell phone, tablet, and guide visitor was sent with him.
== END 2021-08-23 20:45 | disposition short-term general hospital (02) | DRG 871 ==
LOC: CHSED 08:52 → CHS2ND 14:18
PROVIDERS: Admitting Provider Internal Medicine; Emergency Provider Emergency Medicine; PCP Nurse Practitioner Family; Visit Provider Internal Medicine
DX: I50.9 Heart failure, unspecified (principal); I48.20 Chronic atrial fibrillation, unspecified; I25.10 Atherosclerotic heart disease of native coronary artery without angina pectoris; E11.9 Type 2 diabetes mellitus without complications; J44.9 Chronic obstructive pulmonary disease, unspecified; Z79.01 Long term (current) use of anticoagulants; Z79.899 Other long term (current) drug therapy; Z87.891 Personal history of nicotine dependence; A41.9 Sepsis, unspecified organism; I50.23 Acute on chronic systolic (congestive) heart failure; I48.91 Unspecified atrial fibrillation; E87.6 Hypokalemia; E83.42 Hypomagnesemia; I95.9 Hypotension, unspecified; L98.9 Disorder of the skin and subcutaneous tissue, unspecified
CPT/HCPCS: 36415; 71045; 80053; 80307; 82948; 83605; 83735; 83880; 85025; 86140; 87040; 93005; 96365; 96366; 96375; 99285; A9270; J0743; J1940; J3370; J7040; J7060

== ENCOUNTER 2021-09-13 20:39 | Emergency (ER) | payer OTHER, SELFPAY ==
--- NOTE | ~2021-09-13 | CT_ITS ---
EXAMINATION: CT abdomen pelvis w con DATE: 09/13/2021 23:39 INDICATION: Generalized abdominal pain. TECHNIQUE: Computed tomography (CT) of the abdomen and pelvis was performed with 100 mL Omnipaque 350 intravenous contrast. Automated exposure control and iterative reconstruction technique were employe d. The dose-length product was 920.71 mGy-cm. COMPARISON: None. FINDINGS: The visualized portions of the lung bases demonstrate mild scarring in paraspinal right low er lobe. There is minimal atelectasis bilaterally. There is a pneumatocele in right lower lobe. Calci fied bilateral lung nodules are consistent with old granulomatous disease. No pleural effusion. Cardi omegaly is noted. No pericardial effusion. The liver, gallbladder, spleen, pancreas, and adrenal glan ds are normal. There is a 3 mm stone in right kidney. There are greater than 10 stones in left kidney measuring up to 5 mm. There is an 18 mm cyst in left kidney. There is a 2 mm stone in the bladder. T here are no dilated loops of bowel. The appendix is normal. There are no pathologically enlarged lymp h nodes. There is no free intraperitoneal fluid. There is a Dubon catheter in expected position. Ther e is a benign bone island in proximal left femur. There is severe osteoarthritis of the hips. There a re chronic bilateral L5 pars defects. There is a 4 mm anterolisthesis of L5 on S1. There is severe lo wer lumbar spondylosis. IMPRESSION: 1. Bilateral nonobstructing kidney stones. 2. Small bladder stone. Reviewed, dictated and finalized at location A.
--- NOTE | ~2021-09-13 | XR_ITS ---
EXAMINATION: XR foot RT min 3V DATE: 09/13/2021 22:11 INDICATION: Right foot wounds. TECHNIQUE: 3 views of right foot were obtained. COMPARISON: None. FINDINGS: Bone alignment is normal. No fracture. There is mild osteoarthritis of first metatarsophala ngeal joint and some of the midfoot joints and interphalangeal joints. There is an enthesophyte at pl cristopher aspect of calcaneal tuberosity. IMPRESSION: 1. Mild polyarticular osteoarthritis. Reviewed, dictated and finalized at location A.
--- NOTE | ~2021-09-13 | CT_ITS ---
EXAMINATION: CT brain wo con DATE: 09/13/2021 22:09 INDICATION: Confusion. TECHNIQUE: Computed tomography (CT) of the head was performed without intravenous contrast. The mA wa s adjusted according to patient size. Iterative reconstruction technique was employed. The dose-lengt h product was 605.33 mGy-cm. COMPARISON: Head CT 06/25/2021, brain MRI 01/24/2021 FINDINGS: There are scattered areas of low attenuation in the cerebral white matter, which is within normal limits for the patient's age. There is no intracranial hemorrhage, acute infarction, or abnorm al intracranial mass lesion. The ventricles are normal in size. There is mild mucosal thickening in t he paranasal sinuses. The orbits are normal. There is a small left mastoid effusion. IMPRESSION: 1. Normal aging brain. Reviewed, dictated and finalized at location A. IMPRESSION: 1. Normal aging brain.
--- NOTE | ~2021-09-13 | XR_ITS ---
EXAMINATION: XR tibia fibula RT 2V DATE: 09/13/2021 22:11 INDICATION: Right lower leg wounds. TECHNIQUE: 2 views of right tibia and fibula on 4 radiographs were obtained. COMPARISON: None. FINDINGS: Bone alignment is normal. No fracture. There is mild tricompartmental osteoarthritis of rig ht knee. There is mild right ankle osteoarthritis. No knee joint effusion. There is skin irregularity of the lower leg. IMPRESSION: 1. Polyarticular osteoarthritis. Reviewed, dictated and finalized at location A.
--- NOTE | ~2021-09-13 | XR_ITS ---
EXAMINATION: XR tibia fibula LT 2V DATE: 09/13/2021 22:11 INDICATION: Left lower leg wounds. TECHNIQUE: 2 views of left tibia and fibula on 4 radiographs were obtained. COMPARISON: None. FINDINGS: Bone alignment is normal. No fracture. The knee demonstrates moderate osteoarthritis of med ial compartment and mild osteoarthritis of lateral and patellofemoral compartments. There is mild ank le joint osteoarthritis. No knee joint effusion. IMPRESSION: 1. Polyarticular osteoarthritis. Reviewed, dictated and finalized at location A.
--- NOTE | ~2021-09-13 | CT_ITS ---
EXAMINATION:CT diagnostic chest wo con DATE: 09/13/2021 22:09 INDICATION: Chest pain. TECHNIQUE: Computed tomography (CT) of the chest was performed without intravenous contrast. Automate d exposure control and iterative reconstruction technique were employed. The dose-length product (DLP ) was 416.73 mGy-cm. COMPARISON: Chest CT 06/11/2021 FINDINGS: There is mild emphysema. There is mild scarring and paraspinal right lower lobe. There is m inimal atelectasis bilaterally. No pleural effusion. Cardiomegaly is noted. No pericardial effusion. Bilateral kidney stones are noted. There is mild thoracic spondylosis. IMPRESSION: 1. Mild emphysema. 2. Cardiomegaly. Reviewed, dictated and finalized at location A.
[2021-09-13 20:45] VITALS: BP 136/81; PULSE 113; RESP 20; TEMP 37.7; O2SAT 93
--- NOTE | 2021-09-13 21:00 | ECG_ITS ---
Measurements Intervals [place] Rate: 110 P: HI: 0 QRS: 0 QRSD: 118 T: 35 QT: 383 QTc: 520 Interpretive Statements ATRIAL FIBRILLATION WITH RAPID VENTRICULAR RESPONSE MODERATE INTRAVENTRICULAR CONDUCTION DELAY [105+ ms QRS DURATION, 80+ ms Q/S IN V1/V2, NO Q AND 60+ ms R IN I/aVL/V5/V6] NONSPECIFIC ST & T-WAVE ABNORMALITY COMPARED TO ECG 08/23/2021 09:09:00 HEART RATE REDUCED SOMEWHAT FROM 132-110 NO OTHER SIGNIFICANT DIFFERENCE Electronically Signed On 09-14-2021 16:56:03 CDT by Christophe Markham M.D.
[2021-09-13] MEDS: SODIUM CHLORIDE 0.9% IV 1,000 ML 999 ML IV CONT (22:19)
--- NOTE | 2021-09-13 22:20 | PC.NURSE ---
Pt more verbal p arrival back from Xray, asking for food to eat, ERP gave order to wait on food until p results are back, explained to pt. about POC and need to wait, pt verbalizes understanding but then forgets and asks again a few min. later. Pt requests transfer for his wound care tx to [facility] or [facility].
[2021-09-13] MEDS: ACETAMINOPHEN 325 MG TABLET 650 MG PO (22:24)
[2021-09-13 22:26] LABS: Basophils Absolute Auto 0.06 K/mm3 (0.00-0.10); Basophils Percent Auto 0.5 % (0.0-1.0); Eosinophils Absolute Auto 0.17 K/mm3 (0.02-0.50); Eosinophils Percent Auto 1.4 % (1.0-6.0); Hematocrit 28.9 % (40.0-54.0); Hemoglobin 8.6 g/dL (14.0-18.0); Immature Granulocyte Absolute 0.08 K/mm3 (0.00-0.00); Immature Granulocyte Percent A 0.7 % (0.0-0.0); Lymphocytes Absolute Auto 1.48 K/mm3 (1.10-4.50); Lymphocytes Percent Auto 12.2 % (18.0-42.0); Mean Corpuscular HGB Conc 29.8 g/dL (32.0-36.0); Mean Corpuscular Hemoglobin 22.1 pg (27.0-31.0); Mean Corpuscular Volume 74.3 fL (78.0-102.0); Mean Platelet Volume 8.9 fl (8.7-11.0); Monocytes Absolute Auto 1.36 K/mm3 (0.10-0.90); Monocytes Percent Auto 11.2 % (2.0-11.0); Platelet Count Result 447 K/mm3 (150-420); Red Blood Count 3.89 M/mm3 (4.70-6.10); Red Cell Distribution Width 22.5 % (11.6-14.4); White Blood Count 12.1 K/mm3 (4.8-10.8)
[2021-09-13 22:35] LABS: Add Urine Microscopic? YES; Appearance Urine Clear (Clear); Bilirubin Urine Negative (Negative); Blood Urine 3+ (Negative); Color Urine Light Yellow (Yellow); Glucose Urine UA Negative (Negative); Ketones Urine Negative (Negative); Leukocyte Esterase Ur Negative (Negative); Nitrate Urine Negative (Negative); Protein Urine Negative (Negative); Specific Grav Ur <= 1.005 (1.010-1.020); Urobilinogen Urine 0.2 mg/dL (0.2-1.0)
[2021-09-13 22:41] LABS: Alanine Aminotransferase 20 U/L (16-63); Albumin Level 2.2 g/dL (3.4-5.0); Alkaline Phosphatase 64 U/L (46-116); Ammonia 19 umol/L (11-32); Anion Gap 9 mmol/L (8-16); Aspartate Amino Transferase 23 U/L (15-37); Bilirubin,Total 0.4 mg/dL (0.00-1.00); Blood Urea Nitrogen 13 mg/dL (7-18); Calcium 8.1 mg/dL (8.5-10.1); Carbon Dioxide 26 mmol/L (21-32); Chloride 100 mmol/L (98-108); Estimated CRCL calculation 65 ml/min; Estimated Glomerular Filt Rate > 60; Glucose 95 mg/dL (70-99); Lactic Acid Reflex 0.8 mmol/L (0.4-2.0); Lipase 102 U/L (73-393); Osmolality Calculated 280 mOsm/kg (285-295); Sodium 135 mmol/L (136-145); Total Protein 6.9 g/dL (6.4-8.2); Troponin I 10.8 ng/L (0.00-60.4)
[2021-09-13 22:50] LABS: RBC Urine 21-50 /hpf (0-2)
[2021-09-13 23:52] VITALS: BP 95/59; PULSE 96; RESP 18; O2SAT 97
[2021-09-13] MEDS: SODIUM CHLORIDE 0.9% IV 1,000 ML 125 ML IV CONT (23:59)
--- NOTE | 2021-09-14 01:00 | PC.NURSE ---
Call placed to [place] for transfer. Explained to pt about no bed availability in [place], pt agreeable to transfer to [place]. House Sup[facility]. will notify Dr Bacon, awaiting call back.
[2021-09-14 01:04] VITALS: BP 94/64; PULSE 89; RESP 18; TEMP 36.6; O2SAT 97
[2021-09-14] MEDS: POTASSIUM CHLORIDE 20 MEQ TABLET 40 MEQ PO (01:51)
--- NOTE | 2021-09-14 02:01 | ED.WOUNDLAC ---
HPI - Wound/Laceration General Chief Complaint: Wound/Laceration Stated Complaint: ambulance Time Seen by Provider: 09/13/21 20:42 Source: patient, EMS and RN notes reviewed Mode of arrival: EMS Limitations: other (pt was initially confused per EMS which gradually improved in the ED.) History of Present Illness Onset (ago): day(s) (1) Extremity Location: Bilateral: lower leg Place: home Patient tetanus UTD: No Context: other (leg wounds bilateral) Treatments prior to arrival: bandage Related Data Home Medications Medication Instructions Recorded Confirmed furosemide 40 mg PO DAILY 10/08/20 09/14/21 albuterol sulfate 2 puff INHALATION PRN 08/23/21 09/14/21 buspirone 30 mg PO DAILY 08/23/21 09/14/21 citalopram 20 mg PO DAILY 08/23/21 09/14/21 metformin 500 mg PO DAILY 08/23/21 09/14/21 Santyl 1 applic TOPICAL DAILY 09/13/21 09/14/21 ferrous sulfate 324 mg PO DAILY 09/13/21 09/14/21 gabapentin 100 mg PO TID 09/13/21 09/14/21 lisinopril 2.5 mg PO DAILY 09/13/21 09/14/21 metoprolol tartrate 75 mg PO DAILY 09/13/21 09/14/21 oxycodone-acetaminophen 2 tablet PO Q6H PRN 09/13/21 09/14/21 quetiapine [Seroquel] 25 mg PO HS 09/14/21 09/14/21 Allergies Allergy/AdvReac Type Severity Reaction Status Date / Time No Known Allergies Allergy Verified 09/14/21 05:02 Review of Systems Review of Systems: All systems reviewed & are unremarkable except as noted in HPI and below PMFSH Past Medical History Medical History Atrial fibrillation Chronic anticoagulation Confusion associated with infection Congestive heart failure COPD (chronic obstructive pulmonary disease) Coronary artery disease Hypotension Type 2 diabetes mellitus Weakness generalized Surgical History Surgical History No pertinent past surgical history Family History Family History Father Acute myocardial infarction Mother Starvation Sibling Suffocation due to injury of air passages Social History Social History Smoking packs per day: 1 Smoking cigarettes per day: 20.0 Years smoked: 15 Smoking pack-years: 15.00 Smoking status: Former smoker Second hand tobacco smoke exposure: Yes Alcohol intake: former Substance use: former Substance use type: methamphetamine Other substance usage details: states has been clean for 1 mth Last use: 08/20/21 Spiritual care concerns: No Exam Const: General: no acute distress and ill appearing Orientation/consciousness: confusion HENMT: Head: normal to inspection Ears: external ears normal, TM's normal bilaterally and EAC's normal General nose exam: Normal external nose present and Normal nares present Face and sinus: normal facial exam and sinuses nontender Mouth: Yes moist mucous membranes Eyes: Conjunctivae: conjunctivae normal Pupils: Equal, round and reactive pupils present EOM: EOMs intact bilaterally Neck: Neck: normal visual inspection Chest: Chest palpation & inspection: normal inspection of the chest and no tenderness Resp: Effort & Inspection: normal respiratory effort Auscultation: clear to auscultation bilaterally Cardio: Rate: tachycardic Rhythm: regular rhythm GI: GI Palp: Yes Soft to palpation and No Tenderness to palpation present (GI) Auscultation: normal bowel sounds Urinary Catheter: Urinary Catheter: patent and draining Back/Spine/Pelvis: Back: no CVA tenderness Skin: General skin exam: normal color Wounds: wounds noted (large circumferential red and mildly exudative wound : see ED photos.) Neuro: General: patient oriented x3, moves all extremities, no meningeal signs, no focal motor deficits and CN's II-XI intact bilaterally Extrem: General: edema Other: right dorsal foot multiple healing open wounds each 4-5 cm diameter. Psych: A
[2021-09-14] MEDS: TETANUS,DIPHTHERIA,AC PERTUSSIS ADULT 0.5 ML (ADACEL) IM (02:21)
[2021-09-14] MEDS: SODIUM CHLORIDE 0.9% IV 1,000 ML 125 ML IV CONT (02:24)
[2021-09-14 02:28] VITALS: BP 117/73; PULSE 90; RESP 20; O2SAT 100
--- NOTE | 2021-09-14 03:06 | PC.NURSE ---
Pt sleeping, still awaiting call back from Hospitalist Dr Bacon at [place] for transfer.
--- NOTE | 2021-09-14 03:32 | PC.NURSE ---
Call back from Dr Bacon, spoke c Dr. Dunbar and accepts for pt transfer. Transfer paperwork signed and awaiting call back for room assignment.
[2021-09-14 04:20] VITALS: BP 94/54; PULSE 90; RESP 20; TEMP 36.6; O2SAT 100
--- NOTE | 2021-09-14 04:50 | PC.NURSE ---
Report given to [facility] for pt transfer. Pt A&O x3, wanting breakfast, VSS at this time BP 104/64. IVF NS continues to infuse at time of transfer.
== END 2021-09-14 04:50 | disposition short-term general hospital (02) ==
PROVIDERS: Emergency Provider Emergency Medicine; PCP Nurse Practitioner Family
DX: L08.9 Local infection of the skin and subcutaneous tissue, unspecified (principal); L97.903 Non-pressure chronic ulcer of unspecified part of unspecified lower leg with necrosis of muscle; A41.9 Sepsis, unspecified organism; J44.9 Chronic obstructive pulmonary disease, unspecified; E11.9 Type 2 diabetes mellitus without complications; I48.91 Unspecified atrial fibrillation; I50.9 Heart failure, unspecified; Z87.891 Personal history of nicotine dependence
CPT/HCPCS: 36415; 70450; 71250; 73590; 73630; 74177; 80053; 81001; 82140; 83605; 83690; 84484; 85025; 87040; 87070; 87075; 87147; 87186; 87205; 90471; 90715; 93005; 96361; 96365; 96375; 99285; A9270; J0696; J3370; J7030; Q9967

== ENCOUNTER 2021-09-14 04:45 | Observation (INO) | payer OTHER, SELFPAY ==
[2021-09-14 05:25] VITALS: BP 114/96; PULSE 99; RESP 18; TEMP 36.8; O2SAT 100; BMI 23.8
--- NOTE | 2021-09-14 06:06 | ADMGEN ---
This patient, Torrey Fernández, was admitted to [facility] Surg Room 321-01. Patient/family oriented to hospital policies and general routines including ID bracelet, bed and alarms, visiting hours, pain management, procedures, bathroom and other care routines, personal items, smoking policy, room service/diet, and visiting hours. Information on how to activate the Rapid Response Team has been discussed. Patient/Family are encouraged to report perceived risks to care and to ask questions if they do not understand what they are told or what they should do.
[2021-09-14 06:58] LABS: Lactic Acid Reflex 0.7 mmol/L (0.7-2.1)
[2021-09-14 06:59] LABS: Alanine Aminotransferase 15 U/L (4-50); Albumin Level 2.4 g/dL (3.5-5.1); Alkaline Phosphatase 60 U/L (38-126); Anion Gap 6 mmol/L (8-16); Aspartate Amino Transferase 29 U/L (17-59); Bilirubin,Total 0.2 mg/dL (0.2-1.3); Blood Urea Nitrogen 14 mg/dL (9-20); Calcium 7.5 mg/dL (8.4-10.2); Carbon Dioxide 23 mmol/L (22-30); Chloride 108 mmol/L (98-107); Estimated CRCL calculation 79 ml/min; Estimated Glomerular Filt Rate > 60; Glucose 97 mg/dL (65-110); Potassium 3.9 mmol/L (3.4-5.0); Sodium 137 mmol/L (137-145)
[2021-09-14] MEDS: SODIUM CHLORIDE 0.9% IV 1,000 ML 75 ML IV CONT (06:59)
[2021-09-14 07:13] LABS: Phosphorus 3.8 mg/dL (2.5-4.5)
[2021-09-14 07:28] LABS: Glucose Point of Care 91 mg/dl (65-105)
[2021-09-14 08:16] LABS: Hemoglobin A1C 5.4 % (<5.7)
[2021-09-14 08:52] VITALS: PULSE 90
[2021-09-14] MEDS: METOPROLOL TARTRATE 25 MG TABLET 75 MG PO (08:52)
[2021-09-14] MEDS: FERROUS SULFATE 324 MG TABLET PO (08:54)
[2021-09-14] MEDS: GABAPENTIN 100 MG CAPSULE PO ×3 (08:54→17:16)
[2021-09-14] MEDS: busPIRone HCL 10 MG TABLET 30 MG PO (08:54)
[2021-09-14] MEDS: lisinopriL 2.5 MG TABLET PO (08:55)
[2021-09-14] MEDS: CITALOPRAM HYDROBROMIDE 20 MG TABLET PO (08:55)
[2021-09-14] MEDS: oxyCODONE/ACETAMINOPHEN (*CRX) 5-325 MG TABLET 2 TABLET PO ×2 (09:31→17:15)
[2021-09-14 10:21] LABS: Amphetamine Screen Urine Negative (Negative); Barbiturate Screen Urine Negative (Negative); Benzodiazepines Screen Urine Negative (Negative); Cannabinoid Screen Urine Negative (Negative); Cocaine Screen Urine Negative (Negative); Methadone Screen Urine Negative (Negative); Opiate Screen Urine Negative (Negative); Phencyclidine Screen Urine Negative (Negative)
[2021-09-14 11:25] LABS: Glucose Point of Care 117 mg/dl (65-105)
--- NOTE | 2021-09-14 12:20 | PM.CNGS ---
Assessment and Plan Assessment and plan (1) Chronic ulcer of leg: Code(s): L97.909 - Non-pressure chronic ulcer of unspecified part of unspecified lower leg with unspecified severity Status: Acute Assessment and Plan: Patient has chronic leg ulcers that have been present for at least 3 years. There is a large right lower leg ulcer that extends circumferentially around his lower leg, but appears superficial and stable. There are a few smaller ulcers on his left foot that also appear chronic, superficial, and stable. There is no eschar or necrotic tissue that would require debridement. No indication for surgical intervention at this time. Will initiate silver gel with xeroform gauze dressing changes. Would recommend to continue local wound care and educated the patient on how to care for his wounds at home. He has been referred to the [place] wound clinic in the past, and I recommended he follow up with their wound clinic after discharge to follow his wounds. Okay from our standpoint to discharge the patient with local wound care when medically stable. (2) Type 2 diabetes mellitus: Code(s): E11.9 - Type 2 diabetes mellitus without complications Status: Acute Assessment and Plan: Hgb A1C normal at 5.4 on admission. Appears to be controlled and recommend that he follow-up with his PCP after discharge. Discussed the importance of glycemic control with wound healing. (3) Atrial fibrillation: Code(s): I48.91 - Unspecified atrial fibrillation Status: Acute (4) Chronic anticoagulation: Code(s): Z79.01 - terminal computer operator (current) use of anticoagulants Status: Acute (5) COPD (chronic obstructive pulmonary disease): Code(s): J44.9 - Chronic obstructive pulmonary disease, unspecified Status: Acute (6) Congestive heart failure: Qualifiers: Heart failure chronicity: acute on chronic Heart failure type: systolic Qualified Code(s): I50.23 - Acute on chronic systolic (congestive) heart failure Code(s): I50.9 - Heart failure, unspecified Status: Acute (7) Coronary artery disease: Code(s): I25.10 - Atherosclerotic heart disease of k[place] coronary artery without angina pectoris Status: Acute (8) Drug abuse: Code(s): F19.10 - Other psychoactive substance abuse, uncomplicated Status: Acute Assessment and Plan: History of methamphetamine use, reportedly clean for 1 month. Strongly encouraged to continue abstaining from substance use. Urine toxicology was negative for amphetamines. Also reportedly quit smoking, but has a history of tobacco abuse. Encouraged continued smoking cessation. Additional Plan I have discussed the patient's case and plan of care with Dr. Sampson. Thank you for allowing us to see the patient in consultation. History of Present Illness Consult details Consult date: 09/14/21 Reason for consult: wound care (Bilateral leg ulcers) Requesting physician: Indiana Leiva MD Narrative: This is a 61-year-old male with a history of type 2 diabetes mellitus, COPD, CHF, atrial fibrillation on chronic anticoagulation, coronary artery disease, and chronic bilateral lower extremity ulcers. The patient has a history of substance abuse with methamphetamines. He has recently become clean and states his last use of methamphetamines was 1 month ago. He states that he lives in a house with friends where substance abuse is still present. The patient reports having bilateral lower leg wounds for over 3 years. When providing me with history, he was oriented x 3 but his information changed when asking the same question on a few different instances. He initially told me he did not have a PCP, but later admitted that he does have a PCP in [place] that he saw about 6 months ago. He also reports taking care of his wounds independently and he states he uses whatever creams they give me at the hospital. He denies being seen in a wound clinic
[2021-09-14] MEDS: SILVERGEL (ELTA) 45 ML 1 APPLIC TOPICAL (12:53)
--- NOTE | 2021-09-14 13:17 | PM.IMHP ---
H&P: HPI History of Present Illness Date/Time: 09/14/21 13:17 HPI: Patient is 61 y/o male with history of Amphetamine (unrine tox is negative this visit) DM II, A. fib, CHF with reduce EF 30-35% no c/o of shortness of breath or swelling of legs, patient stats he felt his chronic lower extremities were worsening and painful so presented to the ER for evaluation, his B/L extremities were evaluated by the surgery service and patient lower extremities wound do not need any surgical intervention, patient was also seen by wound nurse and her assessment patient does not need any debridement just clean wound dressing, patient is clinically stable, he has not other c/o of CP, SOB, dizziness or palpitation, patient is admitted as observation status Chief Complaint: lower extremity wound Review of Systems Review of Systems: All systems reviewed & are unremarkable except as noted in HPI and below PMFSH Past Medical History Medical History (Updated 09/14/21 @ 12:48 by BRO Leon) Atrial fibrillation Chronic anticoagulation Confusion associated with infection Congestive heart failure COPD (chronic obstructive pulmonary disease) Coronary artery disease Hypotension Type 2 diabetes mellitus Weakness generalized Surgical History Surgical History No pertinent past surgical history Family History Family History Father Acute myocardial infarction Mother Starvation Sibling Suffocation due to injury of air passages Social History Social History Smoking packs per day: 1 Smoking cigarettes per day: 20.0 Years smoked: 15 Smoking pack-years: 15.00 Smoking status: Former smoker Second hand tobacco smoke exposure: Yes Alcohol intake: former Substance use: former Substance use type: methamphetamine Other substance usage details: states has been clean for 1 mth Last use: 08/20/21 Spiritual care concerns: No Meds Home Medications and Allergies Home Medications Medication Instructions Recorded Confirmed Type furosemide 40 mg PO DAILY 10/08/20 09/14/21 History Xarelto 20 mg PO DAILY #0 tablet 06/13/21 09/14/21 Rx albuterol sulfate 2 puff INHALATION PRN 08/23/21 09/14/21 History buspirone 30 mg PO DAILY 08/23/21 09/14/21 History citalopram 20 mg PO DAILY 08/23/21 09/14/21 History metformin 500 mg PO DAILY 08/23/21 09/14/21 History collagenase clostridium histo. 1 applic TOPICAL DAILY 09/13/21 09/14/21 History [Santyl] ferrous sulfate 324 mg PO DAILY 09/13/21 09/14/21 History gabapentin 100 mg PO TID 09/13/21 09/14/21 History lisinopril 2.5 mg PO DAILY 09/13/21 09/14/21 History metoprolol tartrate 75 mg PO DAILY 09/13/21 09/14/21 History oxycodone-acetaminophen 2 tablet PO Q6H PRN 09/13/21 09/14/21 History Allergies Allergy/AdvReac Type Severity Reaction Status Date / Time No Known Allergies Allergy Verified 09/14/21 05:02 Vital Signs Vital Signs - 24 hr 09/14/21 05:25 09/14/21 08:52 Temperature 98.2 F Pulse Rate 99 90 Respiratory Rate 18 Blood Pressure 114/96 H Pulse Oximetry 100 Exam Narrative: Appears chronically ill older than his age Patient is comfortable, NAD HEENT: eyes are clear and none icteric LUNGS: normal respiratory effort ABD: not distended Lower extremities: no edema right lower extremity superficial hyperemia the no open wound, left lower extremity superficial wound no drainage or cellulitis SKIN: nonjaundiced Neuro: grossly intact. H&P: Results Labs Labs: [facility] 09/14/21 06:25 Sodium 137 Potassium 3.9 Chloride 108 H Carbon Dioxide 23 BUN 14 Creatinine 0.90 Glucose 97 Calcium 7.5 L Liver Function 09/14/21 Range/Units 06:25 Total Bilirubin 0.2 (0.2-1.3) mg/dL AST 29 (17-59) U/L ALT 15 (4-50) U/L Alkaline Phosphatase 60 (38-126) U/L [place]
[2021-09-14 14:43] VITALS: BP 102/64; PULSE 77; RESP 18; TEMP 37.1; O2SAT 99
[2021-09-14 14:47] VITALS: BMI 23.8
[2021-09-14 16:16] LABS: Glucose Point of Care 102 mg/dl (65-105)
[2021-09-14] MEDS: RIVAROXABAN 20 MG TABLET PO (17:16)
--- NOTE | 2021-09-14 18:00 | PM.DS ---
DS: Admitting Diagnosis Discharge Date 09/14/2021 Admitting Diagnosis lower extremity wounds DS: Discharge Diagnosis Discharge Diagnosis (1) Chronic ulcer of leg: Code(s): L97.909 - Non-pressure chronic ulcer of unspecified part of unspecified lower leg with unspecified severity Status: Acute Assessment and Plan: Patient is 61 y/o male with history of Amphetamine (unrine tox is negative this visit) DM II, A. fib, CHF with reduce EF 30-35% no c/o of shortness of breath or swelling of legs, patient stats he felt his chronic lower extremities were worsening and painful so presented to the ER for evaluation, his B/L extremities were evaluated by the surgery service and patient lower extremities wound do not need any surgical intervention, patient was also seen by wound nurse and her assessment patient does not need any debridement just clean wound dressing, patient is clinically stable, he has not other c/o of CP, SOB, dizziness or palpitation, (2) Weakness generalized: Code(s): R53.1 - Weakness Status: Acute Assessment and Plan: will have a PT OT evaluate the patient and further recommendation to follow (3) Drug abuse: Code(s): F19.10 - Other psychoactive substance abuse, uncomplicated Status: Acute Assessment and Plan: this time patient is urine drug tox is negative for amphetamines or any illicit drugs (4) Hypertension: Code(s): I10 - Essential (primary) hypertension Status: Acute Assessment and Plan: will continue home regimen and monitor (5) Atrial fibrillation: Code(s): I48.91 - Unspecified atrial fibrillation Status: Acute Assessment and Plan: patient heart rate is close to 100 will continue home regimen and monitor, anticoagulated with Xarelto (6) Type 2 diabetes mellitus: Code(s): E11.9 - Type 2 diabetes mellitus without complications Status: Acute Assessment and Plan: will hold metformin while in the hospital and monitor with sliding scale. DS: Summary Hospital Course Reason for hospitalization: HPI: Patient is 61 y/o male with history of Amphetamine (unrine tox is negative this visit) DM II, A. fib, CHF with reduce EF 30-35% no c/o of shortness of breath or swelling of legs, patient stats he felt his chronic lower extremities were worsening and painful so presented to the ER for evaluation, his B/L extremities were evaluated by the surgery service and patient lower extremities wound do not need any surgical intervention, patient was also seen by wound nurse and her assessment patient does not need any debridement just clean wound dressing, patient is clinically stable, he has not other c/o of CP, SOB, dizziness or palpitation, patient is admitted as observation status Chief Complaint: lower extremity wound Hospital Course: Patient is 61 y/o male with history of Amphetamine (unrine tox is negative this visit) DM II, A. fib, CHF with reduce EF 30-35% no c/o of shortness of breath or swelling of legs, patient stats he felt his chronic lower extremities were worsening and painful so presented to the ER for evaluation, his B/L extremities were evaluated by the surgery service and patient lower extremities wound do not need any surgical intervention, patient was also seen by wound nurse and her assessment patient does not need any debridement just clean wound dressing, patient is clinically stable, he has not other c/o of CP, SOB, dizziness or palpitation, patient with lower extremity wound was seen by surgery service as well as general surgeon patient does not need any surgical intervention and there are no obvious infection or drainage, clinically stable will discharge the patient today. Status at Discharge Functional status at discharge: uses cane/walker Overall status at discharge: patient is back to baseline Time Spent with Patient Time attestation: Total time spent providing and/or coordinating discharge services:
== END 2021-09-14 19:05 | disposition home or self-care (01) ==
PROVIDERS: Admitting Provider Internal Medicine; PCP Nurse Practitioner Family; Visit Provider Family Medicine
DX: E11.622 Type 2 diabetes mellitus with other skin ulcer (principal); L97.919 Non-pressure chronic ulcer of unspecified part of right lower leg with unspecified severity; E11.621 Type 2 diabetes mellitus with foot ulcer; L97.529 Non-pressure chronic ulcer of other part of left foot with unspecified severity; J44.9 Chronic obstructive pulmonary disease, unspecified; I48.91 Unspecified atrial fibrillation; E11.9 Type 2 diabetes mellitus without complications; I50.9 Heart failure, unspecified; I25.10 Atherosclerotic heart disease of native coronary artery without angina pectoris; F15.10 Other stimulant abuse, uncomplicated; Z87.891 Personal history of nicotine dependence; Z79.01 Long term (current) use of anticoagulants; Z79.84 Long term (current) use of oral hypoglycemic drugs; Z79.51 Long term (current) use of inhaled steroids; Z79.899 Other long term (current) drug therapy
CPT/HCPCS: 36415; 80053; 80307; 82948; 83036; 83605; 83735; 84100; 96365; 96366; 96375; 96376; A9270; G0378; G0379; J2543; J3370; J7030

== ENCOUNTER 2021-09-25 15:54 | Emergency (ER) | payer OTHER, SELFPAY ==
[2021-09-25] VITALS (12 sets, daily range): BP systolic 111–147; BP diastolic 75–97; PULSE 80–109; RESP 16–22; TEMP 36.5–36.7; O2SAT 97–100
--- NOTE | 2021-09-25 16:05 | ED.EXTPRO ---
HPI - Extremity Problem General Chief complaint: Wound/Laceration Stated complaint: AMB Time Seen by Provider: 09/25/21 16:00 Source: patient, EMS and RN notes reviewed Mode of arrival: EMS Limitations: no limitations History of Present Illness HPI Narrative: Patient states that he thinks his legs are infected again because he is having pain when he walks on them. He has a history of chronic pain chronic nonhealing wounds on his lower extremities right worse than left. He was recently in [facility] in the ICU due to his hypotension. He has since been discharged from there has been seen in the emergency room here again. He said he has not had anything for pain and a couple of weeks. He denies any fever chills nausea vomiting. He does state that he has had some black stools for couple of weeks. MD Complaint: extremity pain Onset (ago): day(s) (2) Pain Consistency: constant Location: left, right and lower extremity Quality: aching and constant Radiation: distal Relieving factors: nothing Exacerbating factors: weight bearing, walking and palpation Associated symptoms: denies other symptoms Related Data Home Medications Medication Instructions Recorded Confirmed furosemide 40 mg PO DAILY 10/08/20 09/14/21 albuterol sulfate 2 puff INHALATION PRN 08/23/21 09/14/21 buspirone 30 mg PO DAILY 08/23/21 09/14/21 citalopram 20 mg PO DAILY 08/23/21 09/14/21 metformin 500 mg PO DAILY 08/23/21 09/14/21 Santyl 1 applic TOPICAL DAILY 09/13/21 09/14/21 ferrous sulfate 324 mg PO DAILY 09/13/21 09/14/21 gabapentin 100 mg PO TID 09/13/21 09/14/21 lisinopril 2.5 mg PO DAILY 09/13/21 09/14/21 metoprolol tartrate 75 mg PO DAILY 09/13/21 09/14/21 oxycodone-acetaminophen 2 tablet PO Q6H PRN 09/13/21 09/14/21 quetiapine [Seroquel] 25 mg PO HS 09/14/21 09/14/21 Allergies Allergy/AdvReac Type Severity Reaction Status Date / Time No Known Allergies Allergy Verified 09/25/21 16:02 Review of Systems Review of Systems: All systems reviewed & are unremarkable except as noted in HPI and below Gastrointestinal: Gastrointestinal: Reports melena PMFSH Past Medical History Medical History Atrial fibrillation Chronic anticoagulation Confusion associated with infection Congestive heart failure COPD (chronic obstructive pulmonary disease) Coronary artery disease Hypotension Type 2 diabetes mellitus Weakness generalized Surgical History Surgical History No pertinent past surgical history Family History Family History Father Acute myocardial infarction Mother Starvation Sibling Suffocation due to injury of air passages Social History Social History Smoking packs per day: 1 Smoking cigarettes per day: 20.0 Years smoked: 15 Smoking pack-years: 15.00 Smoking status: Former smoker Second hand tobacco smoke exposure: Yes Alcohol intake: former Substance use: former Substance use type: methamphetamine Other substance usage details: states has been clean for 1 mth Last use: 08/20/21 Spiritual care concerns: No Exam Const: General: no acute distress, alert and ill appearing chronically Orientation/consciousness: patient oriented x3 HENMT: Head: normal to inspection Ears: external ears normal Face and sinus: normal facial exam Mouth: Yes moist mucous membranes Eyes: Conjunctivae: conjunctivae normal Pupils: Equal, round and reactive pupils present EOM: EOMs intact bilaterally Neck: Neck: normal visual inspection Resp: Effort & Inspection: normal respiratory effort Auscultation: clear to auscultation bilaterally Cardio: Rate: regular rate Rhythm: abnormal rhythm irregularly irregular GI: GI Palp: Yes Soft to palpation, No Tenderness to palpation present (GI) and No Guarding due to
--- NOTE | 2021-09-25 16:31 | PC.NURSE ---
URINAL PROVIDED TO PT. ALSO PROVIDED SANDWICH, COTTAGE CHEESE AND WATER AT PT REQUEST. ERP WAS ABLE TO REMOVE DRESSING FROM RLE, DRIED BLOOD NOTED TO LLE.
[2021-09-25 16:41] LABS: Basophils Absolute Auto 0.08 K/mm3 (0.00-0.10); Basophils Percent Auto 0.6 % (0.0-1.0); Eosinophils Absolute Auto 0.28 K/mm3 (0.02-0.50); Eosinophils Percent Auto 2.1 % (1.0-6.0); Hematocrit 25.8 % (40.0-54.0); Hemoglobin 7.5 g/dL (14.0-18.0); Immature Granulocyte Absolute 0.06 K/mm3 (0.00-0.00); Immature Granulocyte Percent A 0.4 % (0.0-0.0); Lymphocytes Absolute Auto 1.39 K/mm3 (1.10-4.50); Lymphocytes Percent Auto 10.4 % (18.0-42.0); Mean Corpuscular HGB Conc 29.1 g/dL (32.0-36.0); Mean Corpuscular Hemoglobin 22.3 pg (27.0-31.0); Mean Corpuscular Volume 76.8 fL (78.0-102.0); Mean Platelet Volume 8.3 fl (8.7-11.0); Monocytes Absolute Auto 1.09 K/mm3 (0.10-0.90); Monocytes Percent Auto 8.2 % (2.0-11.0); Neutrophils Absolute Auto 10.5 K/mm3 (1.7-7.2); Neutrophils Percent Auto 78.3 % (50.0-70.0); Platelet Count Result 400 K/mm3 (150-420); Red Blood Count 3.36 M/mm3 (4.70-6.10); Red Cell Distribution Width 22.9 % (11.6-14.4); White Blood Count 13.4 K/mm3 (4.8-10.8)
[2021-09-25 16:56] LABS: Alanine Aminotransferase 17 U/L (16-63); Albumin Level 2.2 g/dL (3.4-5.0); Alkaline Phosphatase 55 U/L (46-116); Anion Gap 5 mmol/L (8-16); Aspartate Amino Transferase 15 U/L (15-37); Bilirubin,Total 0.2 mg/dL (0.00-1.00); Blood Urea Nitrogen 20 mg/dL (7-18); Carbon Dioxide 25 mmol/L (21-32); Chloride 105 mmol/L (98-108); Estimated CRCL calculation 74 ml/min; Estimated Glomerular Filt Rate > 60; Glucose 95 mg/dL (70-99); Osmolality Calculated 282 mOsm/kg (285-295); Potassium 4.3 mmol/L (3.5-5.1); Sodium 135 mmol/L (136-145); Total Protein 6.3 g/dL (6.4-8.2)
--- NOTE | 2021-09-25 17:47 | PC.NURSE ---
PT IS RESTING ON STRETCHER IN EXAM ROOM WITH LIGHTS OFF, WARM BLANKETS PROVIDED. NAD NOTED. PT IS AWAITING RETURN CALL FROM [facility] FOR POSSIBLE TRANSFER. WILL CONTINUE TO MONITOR.
--- NOTE | 2021-09-25 18:56 | PC.NURSE ---
LATANYA PROVIDED, PT REQUESTED ICE CREAM AND ERP REFUSED. PT CONTINUES TO AWAIT RETURN CALL FROM [facility]. REPORT TO MARIN TORRES
[2021-09-25] MEDS: ACETAMINOPHEN 325 MG TABLET 650 MG PO (19:44)
[2021-09-25 19:46] LABS: Amphetamine Screen Urine Positive (Negative); Barbiturate Screen Urine Negative (Negative); Benzodiazepines Screen Urine Negative (Negative); Cannabinoid Screen Urine Negative (Negative); Cocaine Screen Urine Negative (Negative); Methadone Screen Urine Negative (Negative); Opiate Screen Urine Negative (Negative); Phencyclidine Screen Urine Negative (Negative)
[2021-09-25 20:06] LABS: SARS-CoV-2 Ag Negative (Negative)
[2021-09-25 20:15] LABS: Occult Blood Negative (Negative)
== END 2021-09-25 20:58 | disposition short-term general hospital (02) ==
PROVIDERS: Emergency Provider Emergency Medicine
DX: L97.929 Non-pressure chronic ulcer of unspecified part of left lower leg with unspecified severity (principal); L97.919 Non-pressure chronic ulcer of unspecified part of right lower leg with unspecified severity; I50.9 Heart failure, unspecified; E11.9 Type 2 diabetes mellitus without complications; K92.1 Melena; I48.91 Unspecified atrial fibrillation; Z79.01 Long term (current) use of anticoagulants; I25.10 Atherosclerotic heart disease of native coronary artery without angina pectoris; J44.9 Chronic obstructive pulmonary disease, unspecified; Z87.891 Personal history of nicotine dependence; Z20.822 Contact with and (suspected) exposure to COVID-19
CPT/HCPCS: 36415; 80053; 80307; 82272; 85025; 86140; 87426; 99285; A9270; C9803

== ENCOUNTER 2021-09-25 21:40 | Inpatient (IN) | payer OTHER, SELFPAY ==
--- NOTE | ~2021-09-25 | US_ITS ---
EXAMINATION: US venous doppler [facility] DATE: 09/26/2021 12:06 INDICATION: Right lower limb swelling TECHNIQUE: Black scale images without and with compression and Doppler images of the right lower extre mity veins were obtained. COMPARISON: 06/26/2021 FINDINGS: The right common femoral vein, profunda femoral vein, femoral vein, popliteal vein, peronea l trunk, posterior tibial veins, and greater saphenous vein are patent. There are mildly prominent ri ght inguinal lymph nodes. A 2.5 x 0.8 cm hypoechoic area seen in the soft tissues of the medial upper calf. IMPRESSION: 1. Patent right lower extremity veins. No evidence of deep venous thrombosis. 2. Small hypoechoic area in the medial soft tissues of the upper calf, possibly small fluid collectio n or phlegmon. 3. Prominent inguinal lymph nodes, likely reactive. Reviewed, dictated and finalized at location A. IMPRESSION: 1. Patent right lower extremity veins. No evidence of deep venous thrombosis. 2. Small hypoechoic area in the medial soft tissues of the upper calf, possibly small fluid collection or phlegmon. 3. Prominent inguinal lymph nodes, likely reactive.
--- NOTE | ~2021-09-25 | US_ITS ---
EXAMINATION: US art doppler w press LE BI DATE: 09/26/2021 12:06 INDICATION: Ulcerations at the bilateral feet. Diabetes, hypertension and prior smoking. TECHNIQUE: Segmental pressures and plethysmographic and Doppler waveforms of the brachial and lower e xtremity arteries were obtained. COMPARISON: None. FINDINGS: Right and left brachial artery pressures of 127 mm Hg and 125 mm Hg, respectively, are concordant (no rmal difference <= 30 mmHg). The right and left high-thigh pressure indices are 1.08 and 1.22, respec tively (normal > 1.2). The right ankle-brachial index (RAMY) is 1.21 (normal >= 0.9-1). The right great toe-brachial index (T BI) is 0.82 (normal >= 0.6-0.8). The right lower extremity segmental pressure gradients are normal (n ormal gradients <= 20-30 mmHg between adjacent levels on the same leg or the same levels on the two l egs). Arterial waveforms are biphasic with brisk systolic upstrokes throughout the arteries of the ri ght lower limb. The left RAMY is 1.42. The left TBI is 0.89. The left lower extremity segmental pressure gradients are normal. Arterial waveforms are biphasic with brisk systolic upstrokes throughout the arteries of the left lower limb. IMPRESSION: 1. Normal bilateral ABIs and TBIs. No significant occlusive disease. Reviewed, dictated and finalized at location A.
--- NOTE | 2021-09-25 21:56 | ADMGEN ---
This patient, Torrey Fernández, was admitted to Medical Room 349-01. Patient/family oriented to hospital policies and general routines including ID bracelet, bed and alarms, visiting hours, pain management, procedures, bathroom and other care routines, personal items, smoking policy, room service/diet, and visiting hours. Information on how to activate the Rapid Response Team has been discussed. Patient/Family are encouraged to report perceived risks to care and to ask questions if they do not understand what they are told or what they should do.
[2021-09-25 22:03] VITALS: BP 126/66; PULSE 103; RESP 18; TEMP 36.3; O2SAT 99
[2021-09-26 01:24] LABS: Glucose Point of Care 91 mg/dl (65-105)
[2021-09-26] MEDS: SODIUM CHLORIDE 0.9% IV 1,000 ML 100 ML IV CONT (05:23)
--- NOTE | 2021-09-26 05:42 | PC.NURSE ---
This nurse walked into the patients room to discuss changing the dressings from the ED that he had on prior to arrival. Patient was hesitant to allow me to do it and asked me to wait. Closer to morning time, I readdressed the wounds and how they needed to be assessed and changed, but patient was refusing to allow this nurse to assess and redress the wounds until after breakfast because he thinks they will feel better . Educated patient on importance of cleaning and assessing wounds in a timely manner. Patient stated understanding, but still refused to allow a dressing change.
[2021-09-26 07:56] LABS: Glucose Point of Care 81 mg/dl (65-105)
[2021-09-26 09:21] LABS: Basophils Absolute Auto 0.1 K/mm3 (0.0-0.1); Basophils Percent Auto 0.9 % (0.2-1.2); Eosinophils Absolute Auto 0.4 K/mm3 (0-0.3); Eosinophils Percent Auto 3.6 % (0-4.4); Hematocrit 27.7 % (42.0-52.0); Immature Granulocyte Absolute 0.04 K/mm3 (0.00-0.031); Immature Granulocyte Percent A 0.4 % (0-0.5); Lymphocytes Absolute Auto 1.13 K/mm3 (0.9-3.2); Lymphocytes Percent Auto 11.3 % (18.3-44.2); Mean Corpuscular HGB Conc 28.9 g/dl (32-36); Mean Corpuscular Hemoglobin 21.8 pg (26-34); Mean Corpuscular Volume 75.5 fl (80-100); Mean Platelet Volume 8.7 fl (7.4-10.4); Monocytes Absolute Auto 0.6 K/mm3 (0.1-0.6); Neutrophils Absolute Auto 7.8 K/mm3 (1.3-6.7); Neutrophils Percent Auto 77.8 % (45.5-73.1); Platelet Count Result 434 k/mm3 (150-375); Red Blood Count 3.67 M/mm3 (4.6-6.20); Red Cell Distribution Width 22.6 % (11.5-14.5)
[2021-09-26 09:32] LABS: Lactic Acid Reflex 1.3 mmol/L (0.7-2.0)
[2021-09-26 09:39] LABS: Alanine Aminotransferase 14 U/L (4-50); Albumin Level 2.7 g/dL (3.5-5.1); Alkaline Phosphatase 56 U/L (38-126); Anion Gap 6 mmol/L (8-16); Aspartate Amino Transferase 25 U/L (17-59); Bilirubin,Total 0.2 mg/dL (0.2-1.3); Blood Urea Nitrogen 16 mg/dL (9-20); CRP 2.8 mg/dL (<1.0); Calcium 7.9 mg/dL (8.4-10.2); Carbon Dioxide 21 mmol/L (22-30); Chloride 108 mmol/L (98-107); Estimated Glomerular Filt Rate > 60; Glucose 116 mg/dL (65-110); Magnesium 1.8 mg/dL (1.6-2.3); Potassium 3.7 mmol/L (3.4-5.0); Sodium 135 mmol/L (137-145)
[2021-09-26 10:05] VITALS: PULSE 86
[2021-09-26] MEDS: METOPROLOL TARTRATE 25 MG TABLET 75 MG PO ×2 (10:05→20:46)
[2021-09-26] MEDS: busPIRone HCL 10 MG TABLET 30 MG PO ×2 (10:05→17:48)
[2021-09-26] MEDS: COLLAGENASE OINT 30 GM TUBE 1 APPLIC TOPICAL (10:05)
[2021-09-26] MEDS: GABAPENTIN 100 MG CAPSULE PO ×3 (10:05→17:48)
[2021-09-26] MEDS: FERROUS SULFATE 324 MG TABLET PO (10:06)
[2021-09-26] MEDS: CITALOPRAM HYDROBROMIDE 20 MG TABLET PO (10:06)
[2021-09-26] MEDS: lisinopriL 2.5 MG TABLET PO (10:06)
--- NOTE | 2021-09-26 10:18 | PCOTNOTE ---
Attempted to see for OT evaluation. Patient going down for an US. Will continue to attempt.
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
--- NOTE | 2021-09-26 11:45 | PM.IMHP ---
H&P: HPI History of Present Illness Date/Time: 09/26/21 11:45 Betty patient is a 61-year-old male with a past medical history of amphetamine use, positive on his urine tox during this admission, diabetes mellitus type 2, AFib, CHF with reduced ejection fraction 30-35% with no code current complaints of shortness of breath or bilateral lower extremity swelling. Patient reports that he has got chronic lower extremity pain and wounds. Patient has not had further evaluation with an arterial or venous Doppler. Patient will obtain both of those during this hospitalization. Patient did have a positive to wound cultured on 09/14/2021. Patient reports that he was not treated for this therefore vancomycin was started. During his evaluation in the emergency department the patient had chronic nonhealing wounds to the lower extremity right greater than left. He apparently was discharged from [facility] ICU due to hypotension recently and followed up with our facility and was seen and discharged from here on September 14, 2021. Patient reports that he has not had anything for pain in the last couple of weeks although he is persistent with IV narcotics and oral narcotics during his hospitalizations. Patient's hemoglobin was noted to be 7.5, hematocrit 25, platelet 400 and a WBC of 13.4. Gastroenterology was consulted from the emergency department for possible GI bleed. Type and screen was performed and patient was made NPO and hold his Xarelto. Chief Complaint: Bilateral lower extremity wounds Review of Systems Review of Systems: All systems reviewed & are unremarkable except as noted in HPI and below PMFSH Past Medical History Medical History Atrial fibrillation Chronic anticoagulation Confusion associated with infection Congestive heart failure COPD (chronic obstructive pulmonary disease) Coronary artery disease Hypotension Type 2 diabetes mellitus Weakness generalized Surgical History Surgical History No pertinent past surgical history Family History Family History Father Acute myocardial infarction Mother Starvation Sibling Suffocation due to injury of air passages Social History Social History Smoking packs per day: 1 Smoking cigarettes per day: 20.0 Years smoked: 15 Smoking pack-years: 15.00 Smoking status: Former smoker Tobacco type: cigarettes Second hand tobacco smoke exposure: Yes (Significant other and child smoke) Alcohol intake: former Substance use: current Substance use type: amphetamines Other substance usage details: states has been clean for 1 mth Last use: 08/20/21 Spiritual care concerns: No Meds Home Medications and Allergies Home Medications Medication Instructions Recorded Confirmed Type furosemide 40 mg PO DAILY 10/08/20 09/25/21 History Xarelto 20 mg PO DAILY #0 tablet 06/13/21 09/25/21 Rx albuterol sulfate 2 puff INHALATION PRN PRN 08/23/21 09/25/21 History buspirone 30 mg PO DAILY 08/23/21 09/25/21 History citalopram 20 mg PO DAILY 08/23/21 09/25/21 History metformin 500 mg PO DAILY 08/23/21 09/25/21 History Santyl 1 applic TOPICAL DAILY 09/13/21 09/25/21 History ferrous sulfate 324 mg PO DAILY 09/13/21 09/25/21 History gabapentin 100 mg PO TID 09/13/21 09/25/21 History lisinopril 2.5 mg PO DAILY 09/13/21 09/25/21 History metoprolol tartrate 75 mg PO DAILY 09/13/21 09/25/21 History oxycodone-acetaminophen 2 tablet PO Q6H PRN 09/13/21 09/25/21 History quetiapine [Seroquel] 25 mg PO HS 09/14/21 09/25/21 History Allergies Allergy/AdvReac Type Severity Reaction Status Date / Time No Known Allergies Allergy Verified 09/25/21 16:02 Vital Signs Vital Signs - 24 hr 09/25/21 22:03 09/26/21 10:05 Temperature 97.3 F L Pulse Rate 103 H 86 Respir
--- NOTE | 2021-09-26 11:54 | ECHO_ITS ---
Patient Info Name: Torrey Fernández Age: 61 years : 1960 Gender: Male Ht: 71 in Wt: 182 lbs BSA: 2.04 m2 HR: 78 bpm BP: 126 / 66 mmHg Technical Quality: Good Exam Date: 09/26/2021 1:11 PM Exam Location: [facility] Pulmonary Exam Room: 349 Patient Status: Inpatient Admit Date: 09/26/2021 Staff Ordering Physician: [place] Chung APRN Milling Machinist: Brooklyn Dowell RDCS Attending Provider: Julius Toro M.A., MD Exam Type: CA echo doppler color flow Study Info Indications - vegetation drug use chf Complete two-dimensional, color flow and Doppler transthoracic echocardiogram is performed. Summary 1. Complete two-dimensional, color flow and Doppler transthoracic echocardiogram is performed. 2. Left ventricular chamber dimension is mildly enlarged. 3. Left ventricular systolic function is moderately reduced, estimated at 35-40%. 4. The left ventricular diastolic function is abnormal. 5. Right ventricular chamber dimension is normal. 6. Right ventricular systolic function is reduced. 7. Left atrial chamber dimension is severely enlarged. 8. Right atrial chamber dimension is severely enlarged. 9. The tricuspid valve leaflets are normal. 10. The mitral valve has normal leaflets. 11. The aortic valve is trileaflet. 12. The pulmonic valve is normal. 13. no evidence of vegetation. Left Ventricle Left ventricular chamber dimension is mildly enlarged. Left ventricular systolic function is moderately reduced, estimated at 35-40%. There is no increased left ventricular wall thickness. The left ventricular diastolic function is abnormal. Right Ventricle Right ventricular chamber dimension is normal. Right ventricular systolic function is reduced. Left Atria Left atrial chamber dimension is severely enlarged. Right Atria Right atrial chamber dimension is severely enlarged. Aortic Valve The aortic valve is trileaflet. There is no aortic valve sclerosis. There is no aortic valve stenosis. There is mild aortic valve regurgitation. Pulmonic Valve The pulmonic valve is normal. There is no pulmonic valve stenosis. There is trace pulmonic regurgitation. Mitral Valve The mitral valve has normal leaflets. There is no mitral valve stenosis. There is trace mitral valve regurgitation. Tricuspid Valve The tricuspid valve leaflets are normal. There is no significant tricuspid valve stenosis. There is no tricuspid valve regurgitation. No pulmonary hypertension, estimated pulmonary arterial systolic pressure is 34 mmHg. Pericardium/Pleural The pericardium appears normal. There is no pericardial effusion. Inferior Vena Cava Normal inferior vena cava with >50% collapse upon inspiration consistent with normal right atrial pressure, 10 mmHg. Aorta The aortic root size at the sinus of Valsalva is normal. The prox ascending aorta size is normal. Left Ventricular Outflow Tract Name Value Normal LVOT 2D LVOT Diameter 2.1 cm LVOT Doppler LVOT Peak Gradient 4 mmHg LVOT Mean Gradient 2 mmHg LVOT VTI
[2021-09-26 12:01] VITALS: BMI 25.5
[2021-09-26] MEDS: oxyCODONE/ACETAMINOPHEN (*CRX) 5-325 MG TABLET 2 TABLET PO ×2 (12:12→18:31)
[2021-09-26 12:39] LABS: Anisocytosis 1+ (NORMAL); Ovalocytes 1+ (NORMAL); Platelet Estimate Increased (Adequate)
[2021-09-26 12:55] LABS: NT Pro B Type Natriuretic Pept 4300 pg/mL (5-100)
[2021-09-26 13:25] LABS: Glucose Point of Care 112 mg/dl (65-105)
[2021-09-26 13:25] LABS: Iron 125 ug/dL (49-181)
[2021-09-26 13:34] LABS: Percent Iron Saturation 36 % (20-50)
[2021-09-26 14:00] VITALS: BP 130/75; PULSE 84; RESP 16; TEMP 37.3; O2SAT 100
--- NOTE | 2021-09-26 14:16 | PCPTNOTE ---
Attempted physical therapy evaluation, patient refused stating she just changed the wraps on my legs and I just hurt too bad right now. Per patient he will participate tomorrow, but wants to walk. RN aware of refusal. Will follow
[2021-09-26 17:26] LABS: Glucose Point of Care 135 mg/dl (65-105)
[2021-09-26] MEDS: RIVAROXABAN 20 MG TABLET PO (17:48)
--- NOTE | 2021-09-26 18:36 | WPDGIPROGNO ---
Progress Note: A&P Additional Plan Full note dictated No S/sx gi source of blood loss Labs not c/w FENG Microcytosis, ? hemoglobinopathy? Check Hgb electrophoresis Hold on endoscopy #[id number] Subjective Date/time seen: 09/26/21 18:36 Objective Data Vital Signs Vital Signs: Vital Signs - 24 hr 09/25/21 22:03 09/26/21 10:05 09/26/21 14:00 Temperature 36.3 C L 37.3 C Pulse Rate 103 H 86 84 Respiratory Rate 18 16 Blood Pressure 126/66 130/75 Pulse Oximetry 99 100 Intake/Output Intake/Output: Intake & Output 09/23/21 09/24/21 09/25/21 09/26/21 23:59 23:59 23:59 23:59 Intake Total 1890 Output Total 1900 Balance -10 Meds/Results Medications: Active Medications Generic Name Dose Route Start Last Admin Trade Name Freq PRN Reason Stop Dose Admin Acetaminophen 650 mg 09/26/21 02:07 Acetaminophen 325 Mg Tablet PO Q4H PRN Mild Pain (1-3) or Fever Albuterol 2 puff 09/26/21 02:06 Albuterol Sulfate (*Sp) Aerosol 1 Puff INHALATION PRN PRN Shortness Of Breath Or Wheezing Buspirone HCl 30 mg 09/26/21 09:00 09/26/21 17:48 Buspirone Hcl 10 Mg Tablet PO 30 mg BID DANIELA Administration Citalopram Hydrobromide 20 mg 09/26/21 09:00 09/26/21 10:06 Citalopram Hydrobromide 20 Mg Tablet PO 20 mg DAILY DANIELA Administration Collagenase 1 applic 09/26/21 09:00 09/26/21 10:05 Collagenase Oint 30 Gm Tube TOPICAL 1 applic DAILY DANIELA Administration Docusate Sodium 100 mg 09/26/21 09:00 09/26/21 17:48 Docusate Sodium 100 Mg Capsule PO Not Given BID DANIELA Ferrous Sulfate 324 mg 09/26/21 08:00 09/26/21 10:06 Ferrous Sulfate 324 Mg Tablet PO 324 mg DAILY@0800 DANIELA Administration Gabapentin 100 mg 09/26/21 09:00 09/26/21 17:48 Gabapentin 100 Mg Capsule PO 100 mg TID DANIELA Administration Sodium Chloride 1,000 mls @ 100 mls/hr 09/26/21 02:10 09/26/21 18:33 Normal Saline Iv IV CONT 100 mls/hr .Q10H DANIELA Infusion Vancomycin HCl 1,250 mg in 250 mls @ 200 mls/hr 09/27/21 04:00 Vancomycin 1,250 Mg/D5w 250 Ml IVPB Q18H DANIELA Lisinopril 2.5 mg 09/26/21 09:00 09/26/21 10:06 Lisinopril 2.5 Mg Tablet PO 2.5 mg DAILY DANIELA Administration Magnesium Hydroxide 30 ml 09/26/21 02:07 Magnesium Hydroxide Susp 30 Ml Udc PO DAILY PRN Constipation Metoprolol Tartrate 75 mg 09/26/21 09:00 09/26/21 10:05 Metoprolol Tartrate 25 Mg Tablet PO 75 mg Q12HR DANIELA Administration Ondansetron HCl 4 mg 09/26/21 02:07 Ondansetron Inj 4 Mg/2 Ml Vial IV PUSH Q6H PRN Nausea And Vomiting Oxycodone/Acetaminophen 2 tablet 09/26/21 02:06 09/26/21 18:31 Oxycodone/Acetaminophen (*Crx) 5-325 Mg Tablet PO 2 tablet Q6H PRN Administration Pain Rated 4-6 Perflutren Lipid Microsphere 0 ml 09/26/21 11:54 Perflutren Lipid Microspheres 1.5 Ml Vial Diluted To 10 Ml Total Volume IV PUSH ONCE PRN adequate visualization Protocol Quetiapine Fumarate 25 mg 09/26/21 21:00 Quetiapine Fumarate 25 Mg Tablet PO HS [facility] Rivaroxaban 20 mg 09/26/21 17:00 09/26/21 17:48 Rivaroxaban 20 Mg Tablet PO 20 mg DAILY@1700 DANIELA Administration Radiology Results: ITS Impressions Venous Doppler Study 09/26/21 12:23 IMPRESSION: 1. Patent right lower extremity veins. No evidence of deep venous thrombosis. 2. Small hypoechoic area in the medial soft tissues of the upper calf, possibly small fluid collection or phlegmon. 3. Prominent inguinal lymph nodes, likely reactive. Labs Labs: Laboratory Results - last 24 hr 09/26/21 09/26/21 09/26/21 01:21 07:53 09:06 WBC RBC Hgb Hct MCV MCH MCHC RDW Plt Count MPV Immature Gran % (Auto) Neut % (Auto) Lymph % (Auto) Dunn % (Auto) Eos % (Auto) Baso % (Auto) Lymph # (Auto) Dunn # (Auto) Eos # (Auto) Baso # (Auto) Abs Immat Gran (auto) Ab
[2021-09-26 20:38] VITALS: BP 118/80; PULSE 89; RESP 16; TEMP 36.4; O2SAT 100
--- NOTE | 2021-09-26 20:44 | CONS_ITS ---
DATE OF CONSULTATION: 09/26/2021 HISTORY OF PRESENT ILLNESS: A 61-year-old male with history of amphetamine use even on day of admission with urine tox screen positive this admission, type 2 diabetes, atrial fibrillation, CHF with decreased ejection fraction, coronary artery disease, COPD, who presented with lower extremity pain at outside hospital and was noted to have anemia. The patient transferred here for further GI evaluation and treatment of his lower extremity wounds/pain. Primary care provider is unknown. He is a poor historian. The patient complains of heartburn daily. He states he has lost 70 pounds over the past month. He otherwise denies abdominal pain, nausea, vomiting, trouble swallowing, loss of appetite, diarrhea, constipation, hematochezia, melena, fever, jaundice, scleral icterus, dark urine, light stools, itching, hot or cold intolerance, chest pain, shortness of breath at rest, hematuria, dysuria, new cough or visual changes, easy bruising, tingling of skin, bone pain, or tremors. No endocarditis risk factors. ALLERGIES: NO KNOWN DRUG ALLERGIES. MEDICATIONS: See list, but includes Xarelto and iron. SOCIAL HISTORY: Nonsmoker, nondrinker. FAMILY HISTORY: Negative for GI malignancy. His last colonoscopy was at least 10 years ago. PHYSICAL EXAMINATION: GENERAL: Well-developed, well-nourished male lying in bed, in no apparent distress. EXTREMITIES: Lower extremities were not inspected as they were wrapped. SKIN: He has no jaundice, spider angioma or palmar erythema. HEENT: Skull is normocephalic, atraumatic. Pupils nonicteric. Oropharynx clear. NECK: Supple without thyromegaly. LUNGS: Clear to auscultation. HEART: Irregular. ABDOMEN: NABS. Soft, nontender, nonrigid, nondistended without hepatosplenomegaly or masses. RECTAL: Deferred. NEURO: He is conscious and confused. LABORATORY DATA: On September 26, hemoglobin 8, hematocrit 28, white count of 10, platelets 434, MCV 76. B12 is 913. Iron is 125, TIBC is 352, percent sat is 36. LFTs are normal. On September 25, hemoglobin 8, hematocrit 26, MCV is 77, creatinine 0.9. Stool is heme negative. ASSESSMENT/PLAN: 1. The patient with heartburn, likely due to gastroesophageal reflux disease. Use PPI. 2. Weight loss. No obvious cause. CT scan of the abdomen and pelvis on September 14, 2021, shows bladder stone and kidney stones. Otherwise unremarkable from a GI perspective. Would follow for now. 3. Chronic blood loss anemia with microcytosis. The patient has no overt evidence of gastrointestinal source of blood loss. There is no active gastrointestinal bleeding. His stool is heme negative and he is microcytic. His iron studies are not consistent with iron deficiency anemia and this is likely anemia of chronic disease and may have component of hemoglobinopathy. His creatinine is 0.9, but he still may have poor renal function. We will check hemoglobin electrophoresis and consider a dose of erythropoietin. We will leave any further decision regarding endoscopy to [facility] when the patient is more stable. Thank you for allowing me to care for your patient. I will continue to follow. ABBI HORTON M.D. FINANCIAL PROJECT MANAGER FINANCIAL PROJECT MANAGER D I MT: Tom CABA
[2021-09-26 20:45] LABS: Glucose Point of Care 125 mg/dl (65-105)
[2021-09-26 20:46] VITALS: PULSE 89
[2021-09-26] MEDS: QUEtiapine FUMARATE 25 MG TABLET PO (20:46)
[2021-09-27] VITALS (11 sets, daily range): BP systolic 107–115; BP diastolic 52–74; PULSE 65–87; RESP 16–20; TEMP 36.4–37.1; O2SAT 18–100
[2021-09-27] MEDS: SODIUM CHLORIDE 0.9% IV 1,000 ML 100 ML IV CONT (02:40)
[2021-09-27 07:20] LABS: Glucose Point of Care 91 mg/dl (65-105)
[2021-09-27 07:25] LABS: Alanine Aminotransferase 12 U/L (6-50); Albumin Level 2.2 g/dL (3.5-5.1); Alkaline Phosphatase 46 U/L (38-126); Anion Gap 2 mmol/L (8-16); Aspartate Amino Transferase 25 U/L (17-59); Bilirubin,Total < 0.1 mg/dL (0.2-1.3); Blood Urea Nitrogen 15 mg/dL (9-20); Calcium 7.6 mg/dL (8.4-10.2); Carbon Dioxide 25 mmol/L (22-30); Chloride 111 mmol/L (98-107); Estimated CRCL calculation 79 ml/min; Estimated Glomerular Filt Rate > 60; Glucose 88 mg/dL (65-110); Potassium 3.8 mmol/L (3.4-5.0); Sodium 138 mmol/L (137-145)
[2021-09-27] MEDS: CITALOPRAM HYDROBROMIDE 20 MG TABLET PO (08:02)
[2021-09-27] MEDS: oxyCODONE/ACETAMINOPHEN (*CRX) 5-325 MG TABLET 2 TABLET PO ×2 (08:02→16:35)
[2021-09-27] MEDS: METOPROLOL TARTRATE 25 MG TABLET 75 MG PO ×2 (08:02→20:29)
[2021-09-27] MEDS: FERROUS SULFATE 324 MG TABLET PO (08:02)
[2021-09-27] MEDS: lisinopriL 2.5 MG TABLET PO (08:02)
[2021-09-27] MEDS: busPIRone HCL 10 MG TABLET 30 MG PO ×2 (08:02→16:35)
[2021-09-27] MEDS: COLLAGENASE OINT 30 GM TUBE 1 APPLIC TOPICAL (08:03)
[2021-09-27] MEDS: GABAPENTIN 100 MG CAPSULE PO ×3 (08:03→16:35)
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
[2021-09-27 09:02] LABS: Basophils Absolute Auto 0.1 K/mm3 (0.0-0.1); Basophils Percent Auto 1.3 % (0.2-1.2); Eosinophils Absolute Auto 0.5 K/mm3 (0-0.3); Eosinophils Percent Auto 7.8 % (0-4.4); Hematocrit 24.2 % (42.0-52.0); Immature Granulocyte Absolute 0.02 K/mm3 (0.00-0.031); Immature Granulocyte Percent A 0.3 % (0-0.5); Lymphocytes Percent Auto 23.8 % (18.3-44.2); Mean Corpuscular HGB Conc 28.5 g/dl (32-36); Mean Corpuscular Hemoglobin 21.9 pg (26-34); Mean Corpuscular Volume 76.8 fl (80-100); Mean Platelet Volume 8.9 fl (7.4-10.4); Monocytes Absolute Auto 0.7 K/mm3 (0.1-0.6); Monocytes Percent Auto 10.8 % (2.6-8.5); Neutrophils Absolute Auto 3.5 K/mm3 (1.3-6.7); Platelet Count Result 378 k/mm3 (150-375); Red Blood Count 3.15 M/mm3 (4.6-6.20); Red Cell Distribution Width 22.7 % (11.5-14.5); White Blood Count 6.3 K/mm3 (4.5-10.0)
[2021-09-27 09:16] LABS: Hemoglobin 6.9 g/dL (14.0-18.0)
[2021-09-27 10:17] LABS: Hematocrit 24.2 % (42.0-52.0)
[2021-09-27 10:23] LABS: Hemoglobin 6.9 g/dL (14.0-18.0)
--- NOTE | 2021-09-27 11:00 | WPDGIPROGNO ---
Progress Note: A&P Additional Plan GI Elin 27 Sep 2021 Denies any GI complaints. Asa po. VSS soft/NT Hct 24. LFT's normal ASSESSMENT/PLAN: A. GERD: PPI. B. Weight loss: - No obvious cause - CT A/P 09/14/2021 shows bladder stone and kidney stones; otherwise unremarkable from a GI perspective - Follow for now C. Chronic blood loss anemia with microcytosis: - No overt evidence of gastrointestinal source of blood loss - No active gastrointestinal bleeding - Stool is heme negative and he is microcytic - Iron studies not consistent with FENG; likely anemia of chronic disease, may have component of hemoglobinopathy - His creatinine is 0.9, but he still may have poor renal function - Please check hemoglobin electrophoresis and consider a dose of erythropoietin - Leave any further decision regarding endoscopy to [facility] when the patient is more stable Thank you for allowing me to care for your patient. Further recommendations per [facility] [phone] Subjective Date/time seen: 09/27/21 11:00 Objective Data Vital Signs Vital Signs: Vital Signs - 24 hr 09/26/21 14:00 09/26/21 20:38 09/26/21 20:46 Temperature 37.3 C 36.4 C Pulse Rate 84 89 89 Respiratory Rate 16 16 Blood Pressure 130/75 118/80 Pulse Oximetry 100 100 09/27/21 04:52 09/27/21 08:02 Temperature 36.4 C Pulse Rate 65 78 Respiratory Rate 16 Blood Pressure 111/52 L Pulse Oximetry 100 Intake/Output Intake/Output: Intake & Output 09/24/21 09/25/21 09/26/21 09/27/21 23:59 23:59 23:59 23:59 Intake Total 2390 1430 Output Total 2800 850 Balance -410 580 Meds/Results Medications: Active Medications Generic Name Dose Route Start Last Admin Trade Name Freq PRN Reason Stop Dose Admin Acetaminophen 650 mg 09/26/21 02:07 Acetaminophen 325 Mg Tablet PO Q4H PRN Mild Pain (1-3) or Fever Albuterol 2 puff 09/26/21 02:06 Albuterol Sulfate (*Sp) Aerosol 1 Puff INHALATION PRN PRN Shortness Of Breath Or Wheezing Buspirone HCl 30 mg 09/26/21 09:00 09/27/21 08:02 Buspirone Hcl 10 Mg Tablet PO 30 mg BID [facility] Administration Citalopram Hydrobromide 20 mg 09/26/21 09:00 09/27/21 08:02 Citalopram Hydrobromide 20 Mg Tablet PO 20 mg DAILY [facility] Administration Collagenase 1 applic 09/26/21 09:00 09/27/21 08:03 Collagenase Oint 30 Gm Tube TOPICAL 1 applic DAILY [facility] Administration Docusate Sodium 100 mg 09/26/21 09:00 09/27/21 08:03 Docusate Sodium 100 Mg Capsule PO Not Given BID [facility] Doxycycline Hyclate 100 mg 09/28/21 10:00 Doxycycline Hyclate 100 Mg Tablet PO Q12H [facility] Ferrous Sulfate 324 mg 09/26/21 08:00 09/27/21 08:02 Ferrous Sulfate 324 Mg Tablet PO 324 mg DAILY@0800 [facility] Administration Gabapentin 100 mg 09/26/21 09:00 09/27/21 08:03 Gabapentin 100 Mg Capsule PO 100 mg TID [facility] Administration Vancomycin HCl 1,250 mg in 250 mls @ 200 mls/hr 09/27/21 04:00 09/27/21 05:30 Vancomycin 1,250 Mg/D5w 250 Ml IVPB 09/28/21 06:00 Infused Q18H [facility] Infusion Lisinopril 2.5 mg 09/26/21 09:00 09/27/21 08:02 Lisinopril 2.5 Mg Tablet PO 2.5 mg DAILY [facility] Administration Magnesium Hydroxide 30 ml 09/26/21 02:07 Magnesium Hydroxide Susp 30 Ml Udc PO DAILY PRN Constipation Metoprolol Tartrate 75 mg 09/26/21 09:00 09/27/21 08:02 Metoprolol Tartrate 25 Mg Tablet PO 75 mg Q12HR [facility] Administration Ondansetron HCl 4 mg 09/26/21 02:07 Ondansetron Inj 4 Mg/2 Ml Vial IV PUSH Q6H PRN Nausea And Vomiting Oxycodone/Acetaminophen 2 tablet 09/26/21 02:06 09/27/21 08:02 Oxycodone/Acetaminophen (*Crx) 5-325 Mg Tablet PO 2 tablet Q6H PRN Administration Pain Rated 4-6 Perflutren Lipid Microsphere 0 ml 09/26/21 11:54 Perflutren Lipid Microspheres 1.5 Ml Vial Diluted To 10 Ml Total Volume IV PUSH ONCE PRN adequate visualization Protocol [facility]
[2021-09-27 11:25] LABS: Glucose Point of Care 115 mg/dl (65-105)
[2021-09-27 16:27] LABS: Glucose Point of Care 107 mg/dl (65-105)
[2021-09-27] MEDS: SODIUM CHLORIDE 0.9% IV 250 ML 30 ML IV CONT (16:35)
[2021-09-27] MEDS: RIVAROXABAN 20 MG TABLET PO (16:35)
[2021-09-27] MEDS: QUEtiapine FUMARATE 25 MG TABLET PO (20:29)
[2021-09-27 20:51] LABS: Glucose Point of Care 109 mg/dl (65-105)
[2021-09-27 23:18] LABS: Hematocrit 27.3 % (42.0-52.0); Hemoglobin 7.9 g/dL (14.0-18.0)
[2021-09-28 05:45] VITALS: BP 115/78; PULSE 63; RESP 18; TEMP 36.9; O2SAT 90
[2021-09-28 06:44] LABS: Basophils Absolute Auto 0.1 K/mm3 (0.0-0.1); Eosinophils Absolute Auto 0.5 K/mm3 (0-0.3); Eosinophils Percent Auto 7.9 % (0-4.4); Hematocrit 29.1 % (42.0-52.0); Hemoglobin 8.4 g/dL (14.0-18.0); Immature Granulocyte Absolute 0.02 K/mm3 (0.00-0.031); Immature Granulocyte Percent A 0.3 % (0-0.5); Lymphocytes Absolute Auto 1.64 K/mm3 (0.9-3.2); Lymphocytes Percent Auto 26.8 % (18.3-44.2); Mean Corpuscular HGB Conc 28.9 g/dl (32-36); Mean Corpuscular Hemoglobin 22.6 pg (26-34); Mean Corpuscular Volume 78.4 fl (80-100); Mean Platelet Volume 8.9 fl (7.4-10.4); Monocytes Absolute Auto 0.7 K/mm3 (0.1-0.6); Monocytes Percent Auto 10.8 % (2.6-8.5); Neutrophils Absolute Auto 3.2 K/mm3 (1.3-6.7); Neutrophils Percent Auto 52.2 % (45.5-73.1); Platelet Count Result 374 k/mm3 (150-375); Red Blood Count 3.71 M/mm3 (4.6-6.20); Red Cell Distribution Width 22.4 % (11.5-14.5); White Blood Count 6.1 K/mm3 (4.5-10.0)
[2021-09-28 07:01] LABS: Alanine Aminotransferase 13 U/L (6-50); Albumin Level 2.4 g/dL (3.5-5.1); Alkaline Phosphatase 49 U/L (38-126); Anion Gap 2 mmol/L (8-16); Aspartate Amino Transferase 23 U/L (17-59); Bilirubin,Total 0.2 mg/dL (0.2-1.3); Blood Urea Nitrogen 14 mg/dL (9-20); Calcium 7.6 mg/dL (8.4-10.2); Carbon Dioxide 26 mmol/L (22-30); Chloride 108 mmol/L (98-107); Estimated CRCL calculation 79 ml/min; Estimated Glomerular Filt Rate > 60; Glucose 82 mg/dL (65-110); Potassium 3.9 mmol/L (3.4-5.0); Sodium 136 mmol/L (137-145)
[2021-09-28 07:33] LABS: Glucose Point of Care 79 mg/dl (65-105)
[2021-09-28 07:51] LABS: Platelet Estimate Adequate (Adequate)
[2021-09-28 07:52] LABS: Anisocytosis 1+ (NORMAL); Hypochromasia 1+ (NORMAL); Ovalocytes 1+ (NORMAL)
[2021-09-28] MEDS: lisinopriL 2.5 MG TABLET PO (09:00)
[2021-09-28] MEDS: DOXYCYCLINE HYCLATE 100 MG TABLET PO (09:00)
[2021-09-28] MEDS: GABAPENTIN 100 MG CAPSULE PO ×2 (09:00→12:20)
[2021-09-28] MEDS: busPIRone HCL 10 MG TABLET 30 MG PO (09:00)
[2021-09-28] MEDS: CITALOPRAM HYDROBROMIDE 20 MG TABLET PO (09:00)
[2021-09-28] MEDS: oxyCODONE/ACETAMINOPHEN (*CRX) 5-325 MG TABLET 2 TABLET PO (09:00)
[2021-09-28] MEDS: METOPROLOL TARTRATE 25 MG TABLET 75 MG PO (09:00)
[2021-09-28] MEDS: FERROUS SULFATE 324 MG TABLET PO (09:00)
[2021-09-28 11:17] LABS: Glucose Point of Care 105 mg/dl (65-105)
[2021-09-28] MEDS: SILVERGEL (ELTA) 45 ML 1 APPLIC TOPICAL (11:59)
[2021-09-28 12:00] VITALS: BMI 25.5
--- NOTE | 2021-09-28 12:22 | PM.CNGS ---
Assessment and Plan Assessment and plan (1) Chronic ulcer of leg: Code(s): L97.909 - Non-pressure chronic ulcer of unspecified part of unspecified lower leg with unspecified severity Status: Acute Assessment and Plan: This is the reason for our consultation. The patient has chronic bilateral leg wounds, which all appears superficial and stable. No indication for surgical debridement or evidence of an abscess that would indicate incision and drainage. We would recommend to continue with local wound care daily and keep the wounds clean. Will switch the patient to silver gel dressing changes and cover with xeroform and kerlex gauze. Instructed the patient to call [facility] to set up an appointment as an outpatient to follow-up with them after discharge. Only follow-up with our service as needed. Thank you for allowing us to see the patient in consultation. (2) Atrial fibrillation: Code(s): I48.91 - Unspecified atrial fibrillation Status: Acute (3) Chronic anticoagulation: Code(s): Z79.01 - [facility] (current) use of anticoagulants Status: Acute Assessment and Plan: Xarelto has been held due to anemia. (4) COPD (chronic obstructive pulmonary disease): Code(s): J44.9 - Chronic obstructive pulmonary disease, unspecified Status: Acute (5) Type 2 diabetes mellitus: Code(s): E11.9 - Type 2 diabetes mellitus without complications Status: Acute (6) Congestive heart failure: Code(s): I50.9 - Heart failure, unspecified Status: Acute (7) Coronary artery disease: Code(s): I25.10 - Atherosclerotic heart disease of [place] coronary artery without angina pectoris Status: Acute (8) Drug abuse: Code(s): F19.10 - Other psychoactive substance abuse, uncomplicated Status: Acute Assessment and Plan: Patient denying any substance use, although positive amphetamines on urine tox screen. Again strongly encouraged to abstaining from substance use. Additional Plan I have discussed the patient's case and plan of care with Dr. Sampson. History of Present Illness Consult details Consult date: 09/28/21 Reason for consult: wound care (Bilateral lower extremity ulcers) Requesting physician: [place] Chung APRN Narrative: This is a 61-year-old male with multiple medical problems, who is known to our service from a previous hospitalization 2 weeks ago when we saw him for chronic bilateral lower extremity ulcers. He was discharged on 09/14/2021. The patient presented back to [facility] on 09/25/2021 for bilateral lower extremity pain with his wounds. He was also complaining of unintentional weight loss and generalized weakness. He was found to be anemic and there was concern for a possible GI bleed, therefore he was transferred to [facility] to be admitted and further evaluated. GI has evaluated the patient and feels he has anemia of chronic disease, without evidence of an active GI bleed. The patient was again found to have chronic leg ulcers and our service has been consulted for surgical evaluation. Wound care has also been consulted and saw the patient this morning. The patient is now seen on the medical floor. He reports cleaning his wounds and dressing them daily, but reportedly told the nurse this was being done every 2-3 days. He has not followed up with [facility] since discharge. He denies any fevers. The patient does have a history of substance abuse with methamphetamines. On his last admission, he had stated he was clean from any illicit drug use for over a month. Urine toxicology is positive for amphetamines this admission. Also to note, he has had bilateral lower extremity venous dopplers, which showed no DVT in the right lower extremity veins, small hypoechoic area in the medial soft tissues of the upper calf, and prominent inguinal lymph nodes, likely reactive. He also had bilateral arterial dopplers
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
[2021-09-28 16:02] LABS: Vancomycin Trough 12.3 ug/mL (10.0-20.0)
[2021-10-02 12:06] LABS: Hematocrit 28.5 % (38.5-50.0); Hemoglobin 8.3 g/dL (13.2-17.1); MCH 22.4 pg (27.0-33.0); MCV 76.8 fL (80.0-100.0); RDW 20.8 % (11.0-15.0); Red Blood Cell Count 3.71 Mill/uL (4.20-5.80)
== END 2021-09-28 15:05 | disposition home or self-care (01) | DRG 638 ==
PROVIDERS: Admitting Provider Internal Medicine; PCP Nurse Practitioner Family; Visit Provider Nurse Practitioner Family
DX: E11.622 Type 2 diabetes mellitus with other skin ulcer (principal); L97.819 Non-pressure chronic ulcer of other part of right lower leg with unspecified severity; T76.91XA Unspecified adult maltreatment, suspected, initial encounter; E44.0 Moderate protein-calorie malnutrition; E11.621 Type 2 diabetes mellitus with foot ulcer; L97.529 Non-pressure chronic ulcer of other part of left foot with unspecified severity; I48.91 Unspecified atrial fibrillation; I25.10 Atherosclerotic heart disease of native coronary artery without angina pectoris; J44.9 Chronic obstructive pulmonary disease, unspecified; I11.0 Hypertensive heart disease with heart failure; I50.9 Heart failure, unspecified; K21.9 Gastro-esophageal reflux disease without esophagitis; F19.10 Other psychoactive substance abuse, uncomplicated; D63.8 Anemia in other chronic diseases classified elsewhere; Z68.25 Body mass index [BMI] 25.0-25.9, adult; Z79.01 Long term (current) use of anticoagulants; Z87.891 Personal history of nicotine dependence
CPT/HCPCS: 36415; 36430; 80053; 80202; 82248; 82607; 82948; 83021; 83540; 83550; 83605; 83735; 83880; 85014; 85018; 85025; 86140; 86850; 86900; 86901; 86920; 87040; 87070; 87077; 87186; 87205; 93306; 93923; 93970; 97161; 97165; A9270; G0378; G0379; J3370; J7030; J7050; P9016

== ENCOUNTER 2021-12-30 12:58 | Emergency (ER) | payer OTHER, SELFPAY ==
[2021-12-30] VITALS (28 sets, daily range): BP systolic 90–128; BP diastolic 60–92; PULSE 53–123; RESP 20; TEMP 36.7–36.8; O2SAT 93–100
--- NOTE | 2021-12-30 13:04 | ED.SKABFB ---
HPI - Skin/Abscess/Foreign Bdy General Chief complaint: Weakness Stated complaint: ambulance Time Seen by Provider: 12/30/21 13:04 History of Present Illness HPI narrative: 61-year-old male with a history of diabetes mellitus, hypertension, COPD, CHF, atrial fibrillation on Xarelto,chronic leg ulcers presents to the ER with -- right leg ulceration /cellulitis. patient has right leg ulceration for the past 3-4 years. No fever or chills. No purulent drainage from the leg wound. -- pain right leg -- shortness of breath. Patient denies any cough or sputum production. No chest pain. MD complaint: rash and other ( The right leg has red tissue extending from below his knee to above his ankle.) Onset (ago): year(s) ( Present for the past 3 years) Tetanus up to date: no Location: LLE Severity: mild Quality: burning and other ( no pain) Pain Consistency: constant Relieving factors: none Exacerbating factors: none Associated symptoms: denies other symptoms Treatments prior to arrival: none Related Data Home Medications Medication Instructions Recorded Confirmed furosemide 40 mg tablet 40 mg PO DAILY 10/08/20 12/30/21 albuterol sulfate 90 mcg/actuation 2 puff inhalation PRN PRN 08/23/21 12/30/21 aerosol inhaler Shortness Of Breath Or Wheezing buspirone 30 mg tablet 30 mg PO DAILY 08/23/21 12/30/21 citalopram 20 mg tablet 20 mg PO DAILY 08/23/21 12/30/21 ferrous sulfate 324 mg (65 mg 324 mg PO DAILY 09/13/21 12/30/21 iron) tablet,delayed release gabapentin 100 mg capsule 100 mg PO TID 09/13/21 12/30/21 lisinopril 2.5 mg tablet 2.5 mg PO DAILY 09/13/21 12/30/21 metoprolol tartrate 75 mg tablet 75 mg PO BID 09/13/21 12/30/21 quetiapine 25 mg tablet (Seroquel) 25 mg PO HS 09/14/21 12/30/21 Allergies Allergy/AdvReac Type Severity Reaction Status Date / Time No Known Allergies Allergy Verified 12/30/21 16:58 Review of Systems Review of Systems: All systems reviewed & are unremarkable except as noted in HPI and below Constitutional: Constitutional: Reports as per HPI and Reports no additional constitutional complaints Eyes: Eyes: Reports as per HPI and Reports no additional eye complaints ENT: Reports system reviewed and no additional complaints, except as documented and Reports as per HPI Cardiovascular: Cardiovascular: Reports as per HPI and Reports no additional cardiovascular complaints Respiratory: Respiratory: Reports as per HPI, Reports no additional respiratory complaints and Reports dyspnea Gastrointestinal: Gastrointestinal: Reports as per HPI and Reports no additional gastrointestinal complaints Genitourinary: Genitourinary: Reports no additional male genitourinary complaints and Reports as per HPI Musculoskeletal: Musculoskeletal: Reports no additional musculoskeletal complaints and Reports as per HPI Integumentary/Breasts: Skin/Breast: Reports system reviewed and no additional complaints, except as docu and Reports as per HPI Comments: right leg from below the knee to about the ankle has red granulation tissue. pain right leg Neurologic: Reports system reviewed and no additional complaints, except as documented and Reports as per HPI Psychiatric: Psychiatric: Reports no additional psychiatric complaints, Reports as per HPI and Reports anxiety Endocrine: Endocrine: Reports no additional endocrine complaints and Reports as per HPI Hematologic/Lymphatic: Hematologic/Lymphatic: Reports no additional hematologic/lymphatic complaints Allergic/Immunologic: Allergic/Immunologic: Reports no additional allergic/immunologic complaints and Reports as per HPI PMFSH Past Medical History Medical History Atrial fibrillation Chronic anticoagulation Confusion associated with infection Congestive heart failure COPD (chronic obstructive pulmonary disease) Coronary artery disease Hypotension Type 2 diabetes mellitus Weakness generalized Surgical History
[2021-12-30 13:57] LABS: Basophils Absolute Auto 0.07 K/mm3 (0.00-0.10); Basophils Percent Auto 0.9 % (0.0-1.0); Eosinophils Absolute Auto 0.51 K/mm3 (0.02-0.50); Eosinophils Percent Auto 6.7 % (1.0-6.0); Hematocrit 25.7 % (40.0-54.0); Immature Granulocyte Absolute 0.03 K/mm3 (0.00-0.00); Immature Granulocyte Percent A 0.4 % (0.0-0.0); Lymphocytes Absolute Auto 1.93 K/mm3 (1.10-4.50); Lymphocytes Percent Auto 25.3 % (18.0-42.0); Mean Corpuscular HGB Conc 27.2 g/dL (32.0-36.0); Mean Corpuscular Volume 66.2 fL (78.0-102.0); Mean Platelet Volume 9.1 fl (8.7-11.0); Monocytes Absolute Auto 0.87 K/mm3 (0.10-0.90); Monocytes Percent Auto 11.4 % (2.0-11.0); Neutrophils Absolute Auto 4.2 K/mm3 (1.7-7.2); Neutrophils Percent Auto 55.3 % (50.0-70.0); Nucleated Red Blood Cells Absolute Auto 0.02 K/mm3 (0.00-0.00); Nucleated Red Blood Cells Perc 0.3 % (0-0.0); Platelet Count Result 449 K/mm3 (150-420); Red Blood Count 3.88 M/mm3 (4.70-6.10); Red Cell Distribution Width 18.5 % (11.6-14.4); White Blood Count 7.6 K/mm3 (4.8-10.8)
[2021-12-30 14:17] LABS: Lactic Acid Reflex 1.5 mmol/L (0.4-2.0)
[2021-12-30 14:21] LABS: Alanine Aminotransferase 14 U/L (16-63); Albumin Level 2.7 g/dL (3.4-5.0); Alkaline Phosphatase 89 U/L (46-116); Anion Gap 10 mmol/L (8-16); Aspartate Amino Transferase 16 U/L (15-37); Bilirubin,Total 0.3 mg/dL (0.00-1.00); Blood Urea Nitrogen 32 mg/dL (7-18); Calcium 8.1 mg/dL (8.5-10.1); Carbon Dioxide 24 mmol/L (21-32); Chloride 103 mmol/L (98-108); Estimated CRCL calculation 61 ml/min; Estimated Glomerular Filt Rate > 60; Glucose 108 mg/dL (70-99); Osmolality Calculated 291 mOsm/kg (285-295); Potassium 3.8 mmol/L (3.5-5.1); Sodium 137 mmol/L (136-145); Total Protein 7.2 g/dL (6.4-8.2); Troponin I 20.4 ng/L (0.00-60.4)
[2021-12-30 14:22] LABS: NT Pro B Type Natriuretic Pept 6459 pg/mL (0-125)
[2021-12-30] MEDS: SODIUM CHLORIDE 0.9% IV 500 ML 30 ML (14:30)
[2021-12-30 18:06] LABS: Hematocrit 26.7 % (40.0-54.0); Hemoglobin 7.6 g/dL (14.0-18.0)
[2021-12-30 18:21] LABS: Occult Blood Negative (Negative)
--- NOTE | 2021-12-30 19:42 | PC.NURSE ---
pt has been discharged and is currently in ER room 1 waiting for transportation home. pt provided with paper scrubs and safety socks.
--- NOTE | 2021-12-30 20:43 | PC.NURSE ---
dressing on pt right lower leg bleeding through dressing. dressing changed with non-adherent gauze, 4x4 and kerlix. pt asked to be placed in a wheelchair so he could wait in the ER waiting area for his transportation home.
== END 2021-12-30 20:46 | disposition home or self-care (01) ==
PROVIDERS: Emergency Provider Internal Medicine Critical Care Medicine; PCP Nurse Practitioner Family
DX: S81.811A Laceration without foreign body, right lower leg, initial encounter (principal); D50.9 Iron deficiency anemia, unspecified; I48.91 Unspecified atrial fibrillation; Z79.01 Long term (current) use of anticoagulants; I50.9 Heart failure, unspecified; J44.9 Chronic obstructive pulmonary disease, unspecified; E11.9 Type 2 diabetes mellitus without complications
CPT/HCPCS: 36415; 36430; 80053; 82272; 83605; 83880; 84484; 85014; 85018; 85025; 86850; 86900; 86901; 86920; 87040; 96360; 96361; 99284; J7040; P9016

== ENCOUNTER 2022-01-20 23:20 | Emergency (ER) | payer OTHER, SELFPAY ==
--- NOTE | ~2022-01-20 | XR_ITS ---
EXAMINATION: XR chest 1V portable DATE: 01/21/2022 00:36 INDICATION: Dyspnea. TECHNIQUE: A single frontal view of the chest was obtained on 2 radiographs. COMPARISON: Chest single view 08/23/2021 FINDINGS: There is no pneumonia, pleural effusion, or pneumothorax. Cardiomegaly is noted. IMPRESSION: 1. Cardiomegaly. Reviewed, dictated and finalized at location A. IMPRESSION: 1. Cardiomegaly.
[2022-01-20 23:20] VITALS: BP 105/75; PULSE 81; RESP 25; TEMP 36; O2SAT 94
--- NOTE | 2022-01-20 23:23 | ED.SOB ---
HPI - SOB/Dyspnea General Chief Complaint: Shortness of Breath/Dyspnea Stated Complaint: Sob Time Seen by Provider: 01/20/22 23:22 Source: patient, EMS and RN notes reviewed Mode of arrival: EMS Limitations: physical limitation History of Present Illness HPI Narrative: 62-year-old gentleman with a history congestive heart failure COPD, atrial fibrillation, chronic anemia, chronic lower extremity wounds. He presents this evening with increasing shortness of breath over the last 5-7 days. He states that he is out of his nebulizer treatments and needs a new nebulizer. He also does not have his rescue inhaler. He also states that he has not had dressing changes on his lower extremities in 4-5 days. He denies any fever chills. He has long history of noncompliance with medical regimens. He was in this emergency room 2 weeks ago and was given unit of packed red blood cells and discharged home. Patient also states he ran out of all of his medicines including his furosemide 2-3 days ago. MD elicited complaint: shortness of breath Pertinent past history: COPD and congestive heart failure Onset (ago): day(s) (5) Context: medication noncompliance ( Out of his inhalers) Timing: intermittent and progressively worsening Severity: moderate Exacerbating factors: lying flat and movement Relieving factors: nothing Known history of: COPD and congestive heart failure Treatment prior to arrival: none Related Data Home oxygen amount: none Home Medications Medication Instructions Recorded Confirmed furosemide 40 mg tablet 40 mg PO DAILY 10/08/20 01/20/22 albuterol sulfate 90 mcg/actuation 2 puff inhalation PRN PRN 08/23/21 01/20/22 aerosol inhaler Shortness Of Breath Or Wheezing buspirone 30 mg tablet 30 mg PO DAILY 08/23/21 01/20/22 citalopram 20 mg tablet 20 mg PO DAILY 08/23/21 01/20/22 ferrous sulfate 324 mg (65 mg 324 mg PO DAILY 09/13/21 01/20/22 iron) tablet,delayed release gabapentin 100 mg capsule 100 mg PO TID 09/13/21 01/20/22 metoprolol tartrate 75 mg tablet 75 mg PO BID 09/13/21 01/20/22 quetiapine 25 mg tablet (Seroquel) 25 mg PO HS 09/14/21 01/20/22 Allergies Allergy/AdvReac Type Severity Reaction Status Date / Time No Known Allergies Allergy Verified 01/20/22 23:33 Review of Systems Review of Systems: All systems reviewed & are unremarkable except as noted in HPI and below Constitutional: Constitutional: Denies chills and Denies fever(s) PMFSH Past Medical History Medical History Atrial fibrillation Chronic anticoagulation Confusion associated with infection Congestive heart failure COPD (chronic obstructive pulmonary disease) Coronary artery disease Hypotension Type 2 diabetes mellitus Weakness generalized Surgical History Surgical History No pertinent past surgical history Family History Family History Father Acute myocardial infarction Mother Starvation Sibling Suffocation due to injury of air passages Social History Social History Smoking packs per day: 1 Smoking cigarettes per day: 20.0 Years smoked: 15 Smoking pack-years: 15.00 Smoking status: Former smoker Tobacco type: cigarettes Second hand tobacco smoke exposure: Yes (Significant other and child smoke) Alcohol intake: former Substance use: current Substance use type: amphetamines Other substance usage details: states has been clean for over 1 mth Spiritual care concerns: No Exam Const: General: ill appearing chronically Nutritional Appearance: well nourished and thin Orientation/consciousness: patient oriented x3 Limitations: no limitations HENMT: Head: normal to inspection Ears: external ears normal General nose exam: Normal external nose present Face and sinus: normal facial exam Mouth: Ye
[2022-01-20 23:30] VITALS: PULSE 73
[2022-01-20 23:44] LABS: Basophils Absolute Auto 0.09 K/mm3 (0.00-0.10); Basophils Percent Auto 1.1 % (0.0-1.0); Eosinophils Absolute Auto 0.22 K/mm3 (0.02-0.50); Eosinophils Percent Auto 2.6 % (1.0-6.0); Hematocrit 28.2 % (40.0-54.0); Hemoglobin 7.5 g/dL (14.0-18.0); Immature Granulocyte Absolute 0.03 K/mm3 (0.00-0.00); Immature Granulocyte Percent A 0.4 % (0.0-0.0); Lymphocytes Percent Auto 14.3 % (18.0-42.0); Mean Corpuscular HGB Conc 26.6 g/dL (32.0-36.0); Mean Corpuscular Hemoglobin 18.4 pg (27.0-31.0); Mean Corpuscular Volume 69.1 fL (78.0-102.0); Monocytes Absolute Auto 0.78 K/mm3 (0.10-0.90); Monocytes Percent Auto 9.3 % (2.0-11.0); Neutrophils Absolute Auto 6.1 K/mm3 (1.7-7.2); Neutrophils Percent Auto 72.3 % (50.0-70.0); Platelet Count Result 447 K/mm3 (150-420); Red Blood Count 4.08 M/mm3 (4.70-6.10); Red Cell Distribution Width 24.4 % (11.6-14.4); White Blood Count 8.4 K/mm3 (4.8-10.8)
[2022-01-20] MEDS: LACTATED RINGERS 1,000 ML 999 ML IV CONT (23:56)
[2022-01-20 23:59] LABS: Alanine Aminotransferase 19 U/L (16-63); Albumin Level 2.6 g/dL (3.4-5.0); Alkaline Phosphatase 80 U/L (46-116); Anion Gap 12 mmol/L (8-16); Aspartate Amino Transferase 18 U/L (15-37); Bilirubin,Total 0.4 mg/dL (0.00-1.00); Blood Urea Nitrogen 24 mg/dL (7-18); CRP 4.4 mg/dL (0.0-0.9); Calcium 8.1 mg/dL (8.5-10.1); Carbon Dioxide 20 mmol/L (21-32); Chloride 106 mmol/L (98-108); Estimated Glomerular Filt Rate 54; Glucose 151 mg/dL (70-99); INR 1.5; Osmolality Calculated 293 mOsm/kg (285-295); Potassium 3.8 mmol/L (3.5-5.1); Prothrombin Time 16.3 Seconds (9.50-12.10); Sodium 138 mmol/L (136-145); Total Protein 7.2 g/dL (6.4-8.2)
[2022-01-21] VITALS (29 sets, daily range): BP systolic 86–142; BP diastolic 63–98; PULSE 72–88; RESP 14–25; TEMP 36–37.1; O2SAT 95–100
[2022-01-21 00:04] LABS: Lactic Acid Reflex 2.6 mmol/L (0.4-2.0)
[2022-01-21 00:51] LABS: NT Pro B Type Natriuretic Pept 18455 pg/mL (0-125)
--- NOTE | 2022-01-21 02:13 | PC.NURSE ---
Pt asks for a breathing treatment. Pt has been off O2 for almost an hour and his SPO2 has remained within normal limits. Pt also sounds clear in all diaz. Pt educated on purpose of breathing treatment, but pt insists it helps his breathing. Report information to ERP. No new orders at this time.
[2022-01-21] MEDS: IPRATROPIUM 0.5 MG/ALBUTEROL SULFATE 2.5 MG AMPUL.NEB 3 ML INHALATION (02:30)
[2022-01-21 02:41] LABS: Reflex Lactic Acid Yes or No Add Lactic
[2022-01-21] MEDS: SODIUM CHLORIDE 0.9% IV 250 ML 30 ML IV CONT (02:53)
[2022-01-21] MEDS: FUROSEMIDE INJ 40 MG/4 ML VIAL IV PUSH (03:24)
[2022-01-21 03:59] LABS: Add Urine Microscopic? YES; Appearance Urine Clear (Clear); Bilirubin Urine Negative (Negative); Blood Urine 1+ (Negative); Color Urine Yellow (Yellow); Glucose Urine UA Negative (Negative); Ketones Urine Negative (Negative); Leukocyte Esterase Ur Negative LEU/UL (Negative); Nitrate Urine Negative (Negative); Protein Urine Negative (Negative); Urobilinogen Urine 0.2 mg/dL (0.2-1.0)
[2022-01-21 04:09] LABS: Basophils Absolute Auto 0.08 K/mm3 (0.00-0.10); Basophils Percent Auto 0.9 % (0.0-1.0); Eosinophils Absolute Auto 0.13 K/mm3 (0.02-0.50); Eosinophils Percent Auto 1.5 % (1.0-6.0); Hematocrit 29.1 % (40.0-54.0); Hemoglobin 7.9 g/dL (14.0-18.0); Immature Granulocyte Absolute 0.02 K/mm3 (0.00-0.00); Immature Granulocyte Percent A 0.2 % (0.0-0.0); Lymphocytes Absolute Auto 1.51 K/mm3 (1.10-4.50); Lymphocytes Percent Auto 17.2 % (18.0-42.0); Mean Corpuscular HGB Conc 27.1 g/dL (32.0-36.0); Mean Corpuscular Hemoglobin 19.3 pg (27.0-31.0); Mean Corpuscular Volume 71.1 fL (78.0-102.0); Mean Platelet Volume 9.4 fl (8.7-11.0); Monocytes Absolute Auto 0.82 K/mm3 (0.10-0.90); Monocytes Percent Auto 9.4 % (2.0-11.0); Neutrophils Absolute Auto 6.2 K/mm3 (1.7-7.2); Neutrophils Percent Auto 70.8 % (50.0-70.0); Platelet Count Result 435 K/mm3 (150-420); Red Blood Count 4.09 M/mm3 (4.70-6.10); Red Cell Distribution Width 25.8 % (11.6-14.4); White Blood Count 8.8 K/mm3 (4.8-10.8)
[2022-01-21 04:10] LABS: WBC Urine 0-3 /hpf (0-3)
[2022-01-21 04:11] LABS: Bacteria Urine Trace /hpf
[2022-01-21 04:16] LABS: Amphetamine Screen Urine Negative (Negative); Barbiturate Screen Urine Negative (Negative); Benzodiazepines Screen Urine Negative (Negative); Cannabinoid Screen Urine Negative (Negative); Cocaine Screen Urine Negative (Negative); Methadone Screen Urine Negative (Negative); Opiate Screen Urine Negative (Negative); Phencyclidine Screen Urine Negative (Negative)
[2022-01-21 04:27] LABS: Lactic Acid Reflex 2.3 mmol/L (0.4-2.0)
--- NOTE | 2022-01-21 06:53 | PC.NURSE ---
RN called direct care professional, Enid, to attempt to find pt a ride home, get pt help at home with chronic issues, and get and setup a home nebulizer. Enid states that she is not managing today but will start the process. Enid states that when the counseling case manager arrives at 0800 this morning, she will pass the information on.
--- NOTE | 2022-01-21 06:57 | PC.NURSE ---
RN called dietary to order pt a breakfast tray. Pt is ordered a low sodium diabetic tray at this time.
--- NOTE | 2022-01-21 07:04 | PC.NURSE ---
Pt states he has been out of all his medications for about 2-3 days. Pt believes that he will need a refill of all his medications.
--- NOTE | 2022-01-21 08:40 | PCCCNOTE ---
Nebulizer order faxed to [facility], with request for them to deliver to patient's home in [place]. Verified address with pt.
--- NOTE | 2022-01-21 09:00 | PC.NURSE ---
multiple calls made trying to arrange transport home with [facility], [employer] insurance, medicaid insurance.
--- NOTE | 2022-01-21 09:30 | PC.NURSE ---
transportation arranged. pt to be picked up per [facility] at noon. call placed to [facility] for medications to be refilled per dr perez. spoke with RN there and stated they would not be able to get to refills today. medications called in to [facility] in [place] per dr perez order if [facility] would not refill.
--- NOTE | 2022-01-21 09:44 | PC.NURSE ---
call placed to [facility] in [place] for refills. MEDICATION REFILL CALLED IN: LASIX 40MG PO DAILY #30 ALBUTEROL INHALER 2 PUFFS NEEDED #1 BUSPIRONE 30MG PO DAILY #30 GABAPENTIN 100MG PO TID #90 METOPROLOL 75MG PO BID #60 SEROQUEL 25MG PO BEDTIME #30
--- NOTE | 2022-01-25 13:24 | PC.NURSE ---
FINAL BLOOD CULTURE RESULTS GRAM POSITIVE COCCI, MRSA. PER DR RUBALCAVA, RX FOR CLINDAMYCIN WAS SENT TO HIS PHARMACY. UNBALE TO MAKE CONTACT WITH PT DUE TO WRONG NUMBER, CERTIFIED LETTER SENT.
== END 2022-01-21 11:40 | disposition home or self-care (01) ==
PROVIDERS: Emergency Provider Emergency Medicine; PCP Nurse Practitioner Family
DX: I50.9 Heart failure, unspecified (principal); D64.89 Other specified anemias; L97.929 Non-pressure chronic ulcer of unspecified part of left lower leg with unspecified severity; L97.919 Non-pressure chronic ulcer of unspecified part of right lower leg with unspecified severity; E11.9 Type 2 diabetes mellitus without complications; J44.9 Chronic obstructive pulmonary disease, unspecified; I48.91 Unspecified atrial fibrillation; I25.10 Atherosclerotic heart disease of native coronary artery without angina pectoris; Z87.891 Personal history of nicotine dependence; Z79.899 Other long term (current) drug therapy
CPT/HCPCS: 36415; 36430; 71045; 80053; 80307; 81001; 83605; 83880; 85025; 85610; 86140; 86850; 86900; 86901; 86920; 87040; 87070; 87147; 87186; 87205; 94640; 96361; 96374; 99284; J1940; J7050; J7120; P9016

== ENCOUNTER 2022-08-16 22:59 | Emergency (ER) | payer OTHER, SELFPAY ==
--- NOTE | ~2022-08-16 | XR_ITS ---
EXAMINATION: XR chest 1V portable DATE: 08/16/2022 23:57 INDICATION: Chest pain. Shortness of breath. TECHNIQUE: A single frontal view of the chest was obtained. COMPARISON: Chest single view 01/21/2022, chest CT 08/17/2022 FINDINGS: There is no pneumonia, pleural effusion, or pneumothorax. Cardiomegaly is noted. IMPRESSION: 1. Cardiomegaly. Reviewed, dictated and finalized at location A. IMPRESSION: 1. Cardiomegaly.
--- NOTE | ~2022-08-16 | CT_ITS ---
EXAMINATION: CTA chest PE protocol DATE: 08/17/2022 02:47 INDICATION: Chest pain. Shortness of breath. TECHNIQUE: Computed tomography angiography (CTA) of the chest was performed with 100 mL Omnipaque-350 intravenous contrast timed to evaluate the pulmonary arteries. Coronal maximum intensity projection 3D-reconstructions were created by the technologist. Automated exposure control and iterative reconst ruction technique were employed. The dose-length product was 510.48 mGy-cm. COMPARISON: Chest CT 09/13/2021 FINDINGS: There is mild emphysema. There is mild atelectasis bilaterally. There is mild scarring in p araspinal right lower lobe. Calcified pulmonary nodules and calcified hilar lymph nodes are consisten t with old granulomatous disease. No pleural effusion. Cardiomegaly is noted. No pericardial effusion . There is no pulmonary embolus. There is mild thoracic spondylosis. There is mild chronic height los s of multiple vertebral bodies. IMPRESSION: 1. No pulmonary embolus. 2. Mild emphysema. 3. Cardiomegaly. Reviewed, dictated and finalized at location A.
--- NOTE | 2022-08-16 23:05 | ECG_ITS ---
Measurements Intervals [place] Rate: 95 P: [place]: 0 QRS: -5 QRSD: 128 T: 144 QT: 423 QTc: 534 Interpretive Statements ATRIAL FIBRILLATION INTRAVENTRICULAR CONDUCTION DELAY DELAYED PRECORDIAL R/S TRANSITION NONSPECIFIC ST & T-WAVE ABNORMALITY- INF/HIGH LAT LEADS BASELINE ARTIFACT- I, II, III, AVR, AVL, AVF ABNORMAL ECG COMPARED TO ECG 09/13/2021 22:05:23 HEART RATE HAS DECREASED Electronically Signed On 08-17-2022 8:05:15 CDT by Nish Lock D.O.
[2022-08-16 23:08] VITALS: BP 122/90; PULSE 95; RESP 23; TEMP 36.4; O2SAT 100
[2022-08-16 23:16] VITALS: BP 125/89; PULSE 97; RESP 20; O2SAT 100
[2022-08-16 23:21] VITALS: PULSE 106
[2022-08-16 23:30] VITALS: PULSE 109; RESP 26
[2022-08-16 23:31] VITALS: BP 125/98; PULSE 98; RESP 18
--- NOTE | 2022-08-16 23:43 | ED.CHESTPAIN ---
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 He has no current discomfort, he did feel little short of breath while this was going on hopefully keep clammy, maybe a little sweaty. He had a milder episode of this earlier today, called EMS, but on their arrival he signed against medical advice and did not want further evaluation. He has a known history of having episodes of chest discomfort concurrent with his stimulant abuse. He denies any recent fever or chills, sinus drainage, sore throat, coughing, any other episodes of chest pain, shortness of breath, palpitations, near-syncope or syncope. Denies abdominal pain, nausea or vomiting, dysuria urgency or frequency, diarrhea or constipation Related Data Home Medications Medication Instructions Recorded Confirmed furosemide 40 mg tablet 40 mg PO DAILY 10/08/20 01/20/22 albuterol sulfate 90 mcg/actuation 2 puff inhalation PRN PRN 08/23/21 01/20/22 aerosol inhaler Shortness Of Breath Or Wheezing buspirone 30 mg tablet 30 mg PO DAILY 08/23/21 01/20/22 citalopram 20 mg tablet 20 mg PO DAILY 08/23/21 01/20/22 ferrous sulfate 324 mg (65 mg 324 mg PO DAILY 09/13/21 01/20/22 iron) tablet,delayed release gabapentin 100 mg capsule 100 mg PO TID 09/13/21 01/20/22 metoprolol tartrate 75 mg tablet 75 mg PO BID 09/13/21 01/20/22 quetiapine 25 mg tablet (Seroquel) 25 mg PO HS 09/14/21 01/20/22 Allergies Allergy/AdvReac Type Severity Reaction Status Date / Time No Known Allergies Allergy Verified 01/20/22 23:33 Review of Systems Review of Systems: other review of systems is negative except as noted in HPI PMFSH Past Medical History Medical History Atrial fibrillation Chronic anticoagulation Confusion associated with infection Congestive heart failure COPD (chronic obstructive pulmonary disease) Coronary artery disease Hypotension Type 2 diabetes mellitus Weakness generalized Surgical History Surgical History No pertinent past surgical history Family History Family History Father Acute myocardial infarction Mother Starvation Sibling Suffocation due to injury of air passages Social History Social History Smoking packs per day: 1 Smoking cigarettes per day: 20.0 Years smoked: 15 Smoking pack-years: 15.00 Smoking status: Former smoker Tobacco type: cigarettes Second hand tobacco smoke exposure: Yes (Significant other and child smoke) Alcohol intake: former Substance use: current Substance use type: amphetamines Other substance usage details: states has been clean for over 1 mth Living arrangements: alone Spiritual care concerns: No Exam Narrative: patient is awake, alert, well oriented, looks significantly older than stated age, skin changes consistent with longstanding tobacco use, Const: General: healthy appearing, no acute distress and alert Nutritional Appearance: well nourished Orientation/consciousness: patient oriented x3 HENMT: Head: normal to inspection Face/Nose/Sinus: Normal external nose present Face and sinus: normal facial exam Mouth: Yes Normal oral and palatal mucosa present Throat: posterior orophary
[2022-08-16 23:46] VITALS: BP 125/86; PULSE 93; RESP 20; O2SAT 100
[2022-08-17] VITALS (47 sets, daily range): BP systolic 95–145; BP diastolic 72–104; PULSE 85–127; RESP 12–26; TEMP 36.4; O2SAT 92–100
[2022-08-17 00:03] LABS: Basophils Absolute Auto 0.08 K/mm3 (0.00-0.10); Basophils Percent Auto 1.2 % (0.0-1.0); Eosinophils Absolute Auto 0.17 K/mm3 (0.02-0.50); Eosinophils Percent Auto 2.5 % (1.0-6.0); Hematocrit 34.8 % (40.0-54.0); Hemoglobin 9.8 g/dL (14.0-18.0); Immature Granulocyte Absolute 0.02 K/mm3 (0.00-0.00); Immature Granulocyte Percent A 0.3 % (0.0-0.0); Lymphocytes Absolute Auto 1.31 K/mm3 (1.10-4.50); Mean Corpuscular HGB Conc 28.2 g/dL (32.0-36.0); Mean Corpuscular Hemoglobin 20.5 pg (27.0-31.0); Mean Corpuscular Volume 72.7 fL (78.0-102.0); Mean Platelet Volume 9.4 fl (8.7-11.0); Monocytes Absolute Auto 0.63 K/mm3 (0.10-0.90); Monocytes Percent Auto 9.2 % (2.0-11.0); Neutrophils Absolute Auto 4.7 K/mm3 (1.7-7.2); Neutrophils Percent Auto 67.8 % (50.0-70.0); Platelet Count Result 345 K/mm3 (150-420); Red Blood Count 4.79 M/mm3 (4.70-6.10); Red Cell Distribution Width 23.7 % (11.6-14.4); White Blood Count 6.9 K/mm3 (4.8-10.8)
[2022-08-17] MEDS: ONDANSETRON INJ 4 MG/2 ML VIAL IV PUSH (00:08)
[2022-08-17] MEDS: NITROGLYCERIN OINTMENT 1 INCH DOSE TRANSDERM (00:08)
[2022-08-17 00:17] LABS: INR 1.4; Prothrombin Time 15.3 Seconds (9.50-12.10)
[2022-08-17 00:20] LABS: D Dimer 1.12 mg/L (0.19-0.50)
--- NOTE | 2022-08-17 00:21 | PC.NURSE ---
Per Nhi in lab, patient critical d-dimer of 1.12. Dr. Evans aware.
[2022-08-17 00:27] LABS: Troponin I 29.7 ng/L (0.00-60.4)
[2022-08-17 00:28] LABS: Anion Gap 11 mmol/L (8-16); Aspartate Amino Transferase 33 U/L (15-37); Bilirubin,Total 0.8 mg/dL (0.00-1.00); Blood Urea Nitrogen 40 mg/dL (7-18); Calcium 8.3 mg/dL (8.5-10.1); Carbon Dioxide 25 mmol/L (21-32); Chloride 104 mmol/L (98-108); Estimated CRCL calculation 68 ml/min; Estimated Glomerular Filt Rate > 60; Glucose 105 mg/dL (70-99); Osmolality Calculated 299 mOsm/kg (285-295); Potassium 3.5 mmol/L (3.5-5.1); Sodium 140 mmol/L (136-145)
[2022-08-17 00:29] LABS: Alanine Aminotransferase 39 U/L (16-63); Albumin Level 3.4 g/dL (3.4-5.0); Alkaline Phosphatase 88 U/L (46-116); NT Pro B Type Natriuretic Pept 10173 pg/mL (0-125); Total Protein 7.9 g/dL (6.4-8.2)
[2022-08-17 04:32] LABS: Appearance Urine Clear (Clear); Bilirubin Urine Negative (Negative); Blood Urine 2+ (Negative); Color Urine Light Yellow (Yellow); Glucose Urine UA Negative (Negative); Ketones Urine Negative (Negative); Leukocyte Esterase Ur Negative LEU/UL (Negative); Nitrate Urine Negative (Negative); Protein Urine Trace (Negative); Urobilinogen Urine 0.2 mg/dL (0.2-1.0)
[2022-08-17 04:36] LABS: Add Urine Microscopic? YES; WBC Urine 0-3 /hpf (0-3)
[2022-08-17 04:37] LABS: Bacteria Urine Trace /hpf
[2022-08-17] MEDS: ACETAMINOPHEN 500 MG TABLET 1000 MG PO (04:38)
[2022-08-17 04:39] LABS: Amphetamine Screen Urine Positive (Negative); Barbiturate Screen Urine Negative (Negative); Benzodiazepines Screen Urine Negative (Negative); Cannabinoid Screen Urine Negative (Negative); Cocaine Screen Urine Negative (Negative); Methadone Screen Urine Negative (Negative); Opiate Screen Urine Negative (Negative); Phencyclidine Screen Urine Negative (Negative)
[2022-08-17] MEDS: METOPROLOL TARTRATE INJ 5 MG/5 ML VIAL IV PUSH (05:18)
[2022-08-17 06:05] LABS: Troponin I 39.9 ng/L (0.00-60.4)
--- NOTE | 2022-08-17 06:30 | PC.NURSE ---
per [place] at [facility] transfer center, Nhi will phone in a few minutes for bed assignment.
== END 2022-08-17 07:20 | disposition short-term general hospital (02) ==
LOC: CHSED 08-17 01:17
PROVIDERS: Emergency Provider Emergency Medicine
DX: R07.9 Chest pain, unspecified (principal); R79.1 Abnormal coagulation profile; R53.1 Weakness; E11.622 Type 2 diabetes mellitus with other skin ulcer; L98.499 Non-pressure chronic ulcer of skin of other sites with unspecified severity; F15.10 Other stimulant abuse, uncomplicated; I25.10 Atherosclerotic heart disease of native coronary artery without angina pectoris; I48.91 Unspecified atrial fibrillation; I11.0 Hypertensive heart disease with heart failure; I50.9 Heart failure, unspecified; E11.9 Type 2 diabetes mellitus without complications; J44.9 Chronic obstructive pulmonary disease, unspecified; Z87.891 Personal history of nicotine dependence; Z79.01 Long term (current) use of anticoagulants; Z95.5 Presence of coronary angioplasty implant and graft; Z79.899 Other long term (current) drug therapy
CPT/HCPCS: 36415; 71045; 71275; 80053; 80307; 81001; 83880; 84484; 85025; 85380; 85610; 85730; 93005; 96374; 96375; 99285; A9270; J2405; Q9967

== ENCOUNTER 2022-10-02 12:36 | Observation (INO) | payer OTHER, SELFPAY ==
[2022-10-02] VITALS (23 sets, daily range): BP systolic 103–136; BP diastolic 61–109; PULSE 78–126; RESP 16–25; TEMP 36.4–37.2; O2SAT 92–100; BMI 25.7
--- NOTE | ~2022-10-02 | CT_ITS ---
EXAMINATION: CTA chest PE protocol DATE: 10/02/2022 15:31 INDICATION: shortness of breath with elevated D-dimer TECHNIQUE: Computed tomography angiography (CTA) of the chest was performed with 100 mL Omnipaque-350 intravenous contrast timed to evaluate the pulmonary arteries. Coronal maximum intensity projection 3D-reconstructions were created by the technologist. The dose-length product (DLP) was 1063.35 mGy-cm . Automated exposure control and iterative reconstruction technique were employed. COMPARISON: X-ray chest, same date; [facility]PA 08/17/2022. FINDINGS: Lung parenchyma and airways: Motion artifact in the lungs. Likely emphysematous change. Dependent and basilar scar/atelectasis. Mild interlobular septal thickening. Calcified pulmonary granulomas. Pleura: Trace right pleural fluid. Thoracic inlet, axillae and chest wall: Mild symmetric gynecomastia. Thoracic aorta: Normal. Mediastinum: Dilated central pulmonary arteries as can be seen with pulmonary arterial hypertension. Mediastinal lymphadenopathy. Calcified hilar nodes. Heart and pericardium: Cardiomegaly. Mild mitral calcification Coronary artery calcifications: Mild. Upper abdomen: Motion artifact in the upper abdomen. Simple left renal cyst. Left renal calcification s. Bones: No acute osseous finding. Pulmonary arteries: Study quality: Adequate. No pulmonary emboli detected. IMPRESSION: No CT evidence of acute pulmonary embolus. Mild interstitial pulmonary edema. Trace right pleural eff usion. Mediastinal lymphadenopathy. Cardiomegaly. Left nephrolithiasis. Reviewed, dictated and finalized at location K. IMPRESSION: No CT evidence of acute pulmonary embolus. Mild interstitial pulmonary edema. T race right pleural effusion. Mediastinal lymphadenopathy. Cardiomegaly. Left ne phrolithiasis.
--- NOTE | ~2022-10-02 | XR_ITS ---
EXAMINATION: XR chest 1V portable 10/02/2022 13:32 INDICATION: Midsternal chest pain and shortness of breath PROCEDURE: AP portable chest COMPARISON: Comparison to multiple prior studies sequentially, with oldest reviewed study dated 07/2021. FINDINGS: The lungs are clear. The cardiomediastinal silhouette is within normal limits. There are no pleural effusions. There is no pneumothorax suspected. 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 IMPRESSION: 1: Cardiomegaly. Reviewed, dictated and finalized at location A. IMPRESSION: 1: Cardiomegaly.
--- NOTE | 2022-10-02 13:02 | ECG_ITS ---
Measurements Intervals [place] Rate: 103 P: [place]: 0 QRS: -27 QRSD: 124 T: 163 QT: 381 QTc: 501 Interpretive Statements ATRIAL FIBRILLATION WITH RAPID VENTRICULAR RESPONSE INCOMPLETE LEFT BUNDLE BRANCH BLOCK DELAYED PRECORDIAL R/S TRANSITION ST-T WAVE ABNORMALITY IN LATERAL LEADS- CONSIDER ISCHEMIA ABNORMAL ECG COMPARED TO ECG 08/16/2022 23:13:25 ST-T WAVE ABNORMALITY NOW PRESENT Electronically Signed On 10-02-2022 21:02:38 CDT by Nish Lock D.O.
[2022-10-02] MEDS: IPRATROPIUM 0.5 MG/ALBUTEROL SULFATE 2.5 MG AMPUL.NEB 3 ML INHALATION (13:10)
[2022-10-02] MEDS: ALPRAZolam (*CRX) 0.5 MG TABLET PO (13:27)
[2022-10-02] MEDS: methylPREDNISolone SOD SUCC 125 MG VIAL IV PUSH (13:27)
[2022-10-02 13:31] LABS: Basophils Absolute Auto 0.07 K/mm3 (0.00-0.10); Basophils Percent Auto 1.2 % (0.0-1.0); Eosinophils Absolute Auto 0.09 K/mm3 (0.02-0.50); Eosinophils Percent Auto 1.6 % (1.0-6.0); Hematocrit 34.2 % (40.0-54.0); Hemoglobin 9.9 g/dL (14.0-18.0); Immature Granulocyte Absolute 0.06 K/mm3 (0.00-0.00); Immature Granulocyte Percent A 1.1 % (0.0-0.0); Lymphocytes Absolute Auto 1.03 K/mm3 (1.10-4.50); Lymphocytes Percent Auto 18.2 % (18.0-42.0); Mean Corpuscular HGB Conc 28.9 g/dL (32.0-36.0); Mean Corpuscular Hemoglobin 20.7 pg (27.0-31.0); Mean Corpuscular Volume 71.5 fL (78.0-102.0); Mean Platelet Volume 9.2 fl (8.7-11.0); Monocytes Absolute Auto 0.49 K/mm3 (0.10-0.90); Monocytes Percent Auto 8.6 % (2.0-11.0); Neutrophils Absolute Auto 3.9 K/mm3 (1.7-7.2); Neutrophils Percent Auto 69.3 % (50.0-70.0); Platelet Count Result 321 K/mm3 (150-420); Red Blood Count 4.78 M/mm3 (4.70-6.10); Red Cell Distribution Width 22.1 % (11.6-14.4); White Blood Count 5.7 K/mm3 (4.8-10.8)
[2022-10-02 13:54] LABS: Alanine Aminotransferase 20 U/L (16-63); Albumin Level 2.8 g/dL (3.4-5.0); Alkaline Phosphatase 75 U/L (46-116); Anion Gap 13 mmol/L (8-16); Aspartate Amino Transferase 31 U/L (15-37); Bilirubin,Total 0.7 mg/dL (0.00-1.00); Blood Urea Nitrogen 36 mg/dL (7-18); Calcium 8.4 mg/dL (8.5-10.1); Carbon Dioxide 23 mmol/L (21-32); Chloride 101 mmol/L (98-108); Estimated CRCL calculation 54 ml/min; Estimated Glomerular Filt Rate 55; Glucose 130 mg/dL (70-99); NT Pro B Type Natriuretic Pept 24938 pg/mL (0-125); Osmolality Calculated 294 mOsm/kg (285-295); Potassium 4.3 mmol/L (3.5-5.1); Sodium 137 mmol/L (136-145); Total Protein 7.4 g/dL (6.4-8.2); Troponin I 26.9 ng/L (0.00-60.4)
[2022-10-02 14:07] LABS: Influenza A QL RT-PCR Negative (Negative); Influenza B QL RT-PCR Negative (Negative); SARS-CoV-2 RNA PCR Negative (Negative)
[2022-10-02 14:08] LABS: RSV RNA, RT-PCR Negative (Negative)
[2022-10-02 14:14] LABS: INR 1.2; Partial Thromboplastin Time 29.4 SEC (23.90-30.70); Prothrombin Time 13.4 Seconds (9.50-12.10)
[2022-10-02 14:26] LABS: D Dimer 0.93 mg/L (0.19-0.50)
[2022-10-02] MEDS: FUROSEMIDE INJ 40 MG/4 ML VIAL IV PUSH (14:30)
--- NOTE | 2022-10-02 15:44 | ED.ANXIETY ---
HPI - Anxiety General Chief Complaint: Anxiety Stated Complaint: chest pain, anxiety Time Seen by Provider: 10/02/22 12:37 Source: patient and EMS Mode of arrival: EMS History of Present Illness HPI narrative: This is a 62-year-old gentleman with a history of atrial fibrillation with history of CHF CAD with stent placement and neck and abdomen abuse presents via EMS from home with anxiety increased shortness of breath has had the symptoms along with weakness for the last couple weeks typically is noncompliant with his medical regimen has a currently weakness with some shortness of breath anxiety with no fever chills denies any chest pain at this time with no flank pain no dysuria no diarrhea constipation no nausea or vomiting. Patient is having difficulty caring for himself at home. MD complaint: anxiety and shortness of breath Onset (ago): week(s) Symptoms: dyspnea Severity: moderate Quality: constant Place: home Related Data Home Medications Medication Instructions Recorded Confirmed furosemide 40 mg tablet 40 mg PO DAILY 10/08/20 01/20/22 albuterol sulfate 90 mcg/actuation 2 puff inhalation PRN PRN 08/23/21 01/20/22 aerosol inhaler Shortness Of Breath Or Wheezing buspirone 30 mg tablet 30 mg PO DAILY 08/23/21 01/20/22 ferrous sulfate 324 mg (65 mg 324 mg PO DAILY 09/13/21 01/20/22 iron) tablet,delayed release gabapentin 100 mg capsule 100 mg PO TID 09/13/21 01/20/22 metoprolol tartrate 75 mg tablet 25 mg PO DAILY 09/13/21 01/20/22 quetiapine 25 mg tablet (Seroquel) 25 mg PO HS 09/14/21 01/20/22 fluticasone propionate 230 inhalation 10/02/22 mcg-salmeterol 21 mcg/actuation HFA inhaler (Advair HFA) rivaroxaban 20 mg tablet (Xarelto) 20 mg PO DAILY 10/02/22 10/02/22 spironolactone 25 mg tablet 25 mg PO DAILY 10/02/22 10/02/22 Allergies Allergy/AdvReac Type Severity Reaction Status Date / Time No Known Allergies Allergy Verified 10/02/22 13:48 Review of Systems Review of Systems: All systems reviewed & are unremarkable except as noted in HPI and below PMFSH Past Medical History Medical History Atrial fibrillation Chronic anticoagulation Confusion associated with infection Congestive heart failure COPD (chronic obstructive pulmonary disease) Coronary artery disease Hypotension Type 2 diabetes mellitus Weakness generalized Surgical History Surgical History No pertinent past surgical history Family History Family History Father Acute myocardial infarction Mother Starvation Sibling Suffocation due to injury of air passages Social History Social History Smoking packs per day: 1 Smoking cigarettes per day: 20.0 Years smoked: 15 Smoking pack-years: 15.00 Smoking status: Former smoker Tobacco type: cigarettes Second hand tobacco smoke exposure: Yes (Significant other and child smoke) Alcohol intake: former Substance use: current Substance use type: amphetamines Other substance usage details: states has been clean for over 1 mth Living arrangements: alone Spiritual care concerns: No Exam Const: General: no acute distress Orientation/consciousness: patient oriented x3 Limitations: no limitations and physical limitations HENMT: Head: normal to inspection Eyes: Conjunctivae: conjunctivae normal Neck: Neck: normal visual inspection, no lymphadenopathy and no meningeal signs Chest: Chest palpation & inspection: normal inspection of the chest Resp: Effort & Inspection: normal respiratory effort Cardio: Rate: regular rate : Male General Exam: Yes normal external exam Urinary Catheter: Urinary Catheter: patent and draining Back/Spine/Pelvis: Back: no CVA tenderness Skin: General skin exam: normal color Rashes: no rashes Neuro:
[2022-10-02 16:30] LABS: Appearance Urine Clear (Clear); Bilirubin Urine Negative (Negative); Blood Urine Negative (Negative); Color Urine Light Yellow (Yellow); Glucose Urine UA Negative (Negative); Ketones Urine Negative (Negative); Leukocyte Esterase Ur Negative LEU/UL (Negative); Nitrate Urine Negative (Negative); Protein Urine Negative (Negative); Urobilinogen Urine 0.2 mg/dL (0.2-1.0)
[2022-10-02 16:31] LABS: Add Urine Microscopic? NO
--- NOTE | 2022-10-02 17:02 | PC.NURSE ---
3994 PT PEED ON STRETCHER IN ELEVATOR GOING UP TO PT ROOM WHEN PT WAS MOVED TO HOSPITAL BED HE HAD POOP IN HIS PANTS PT A/O AND NEVER TOLD STAFF HE HAD TO POOP PT WAS A/O ENOUGH TO ASK FOR FOOD DRINKS HEAD OF BED UP AND MORE DRINKS AND HEAD OF BED DOWN
--- NOTE | 2022-10-02 17:06 | PC.NURSE ---
1300 PT URINATED IN URINAL FOR UA
--- NOTE | 2022-10-02 17:20 | PC.NURSE ---
171 meds verified with patient claims he has taken some meds but has not taken most since he ran out and has not made it to pharm to obtain. nurse attempted to coontact pharm but is closed.
[2022-10-02] MEDS: ACETAMINOPHEN 325 MG TABLET 650 MG PO (21:52)
[2022-10-02] MEDS: LEVALBUTEROL NEB 1.25 MG/3 ML INHALATION (23:46)
[2022-10-03] VITALS (15 sets, daily range): BP systolic 111–116; BP diastolic 60–65; PULSE 79–128; RESP 14–20; TEMP 36.1–37.2; O2SAT 91–98
[2022-10-03 05:40] LABS: Hematocrit 32.1 % (40.0-54.0); Hemoglobin 9.3 g/dL (14.0-18.0); Mean Corpuscular Hemoglobin 20.6 pg (27.0-31.0); Mean Platelet Volume 9.7 fl (8.7-11.0); Platelet Count Result 307 K/mm3 (150-420); Red Blood Count 4.52 M/mm3 (4.70-6.10); Red Cell Distribution Width 21.9 % (11.6-14.4); White Blood Count 5.8 K/mm3 (4.8-10.8)
[2022-10-03 05:49] LABS: Anion Gap 8 mmol/L (8-16); Blood Urea Nitrogen 40 mg/dL (7-18); Calcium 7.9 mg/dL (8.5-10.1); Carbon Dioxide 27 mmol/L (21-32); Chloride 101 mmol/L (98-108); Estimated CRCL calculation 54 ml/min; Estimated Glomerular Filt Rate 55; Glucose 157 mg/dL (70-99); Osmolality Calculated 294 mOsm/kg (285-295); Potassium 4.1 mmol/L (3.5-5.1); Sodium 136 mmol/L (136-145)
[2022-10-03] MEDS: LEVALBUTEROL NEB 1.25 MG/3 ML INHALATION ×4 (06:39→23:12)
[2022-10-03] MEDS: RIVAROXABAN 10 MG TABLET 20 MG PO (08:55)
[2022-10-03] MEDS: METOPROLOL TARTRATE 25 MG TABLET PO (08:56)
[2022-10-03] MEDS: SPIRONOLACTONE 25 MG TABLET PO (08:56)
[2022-10-03] MEDS: FUROSEMIDE INJ 20 MG/2 ML VIAL IV PUSH ×2 (08:56→16:48)
--- NOTE | 2022-10-03 09:07 | PM.IMHP ---
H&P: HPI History of Present Illness Date/Time: 10/03/22 09:07 Chief Complaint: Congestive Heart failure Narrative: ? This is a 62-year-old male presents to the hospital with increased shortness of breath came in by EMS patient has said that he had weakness for the past couple weeks has not had his medications filled in the past couple weeks as due to inability to get to his doctor's office per patient. Patient has a history of atrial fibrillation congestive heart failure stent placements and drug abuse. Patient has a chronic wound his leg states he takes care of it well as he used to have some home health but no longer comes any. Patient did not require any oxygen was 97% on room air was found to increased [place] was [address]. patient declines fpc placement although he says he is having some difficulty taking care of self informs me that his girlfriend will help take care when he does not get out of bed or walk per patient. patient continues to be noncompliant he does use recreational drugs at times of methamphetamines patient denies smoking. Patient isn't ill health looks like he has debility due to chronic illnesses we will treat patient with some IV antibiotics diurese him and continue to monitor him for his shortness of breath we will also treat his dressing changes from his chronic wound on the right leg Review of Systems Review of Systems: shortness of breath, chf, wound to right leg All systems reviewed & are unremarkable except as noted in HPI and below PMFSH Past Medical History Medical History Atrial fibrillation Chronic anticoagulation Confusion associated with infection Congestive heart failure COPD (chronic obstructive pulmonary disease) Coronary artery disease Hypotension Type 2 diabetes mellitus Weakness generalized Surgical History Surgical History No pertinent past surgical history Family History Family History Father Acute myocardial infarction Mother Starvation Sibling Suffocation due to injury of air passages Social History Social History Smoking packs per day: 5 Smoking cigarettes per day: 100.0 Years smoked: 5 Smoking pack-years: 25.00 Smoking status: Former smoker Tobacco type: cigarettes Second hand tobacco smoke exposure: Yes Alcohol intake: former Substance use: current Substance use type: amphetamines Other substance usage details: states has been clean for over 1 mth Lack of Transportation: YES Lack of Food: Sometimes True Current Housing: I Have Housing Concerned About Future Housing: No Difficulty Paying Gas/Electric Bills: YES Difficulty Paying for Meds: YES Currently Unemployed: No Education: High School Diploma/GED Difficulty w/ Childcare or Family Care: No Living arrangements: alone Spiritual care concerns: No Meds Home Medications and Allergies Home Medications Medication Instructions Recorded Confirmed Type albuterol sulfate 90 mcg/actuation 2 puff inhalation PRN PRN 10/04/22 Rx aerosol inhaler Shortness Of Breath Or Wheezing #18 grams buspirone 30 mg tablet 30 mg PO DAILY #30 tabs 10/04/22 Rx ferrous sulfate 324 mg (65 mg 324 mg PO DAILY #30 tabs 10/04/22 Rx iron) tablet,delayed release furosemide 40 mg tablet 40 mg PO DAILY #30 tabs 10/04/22 Rx gabapentin 100 mg capsule 100 mg PO TID #90 caps 10/04/22 Rx metoprolol tartrate 75 mg tablet 25 mg PO DAILY #30 tabs 10/04/22 Rx quetiapine 25 mg tablet (Seroquel) 25 mg PO HS #30 tabs 10/04/22 Rx rivaroxaban 20 mg tablet (Xarelto) 20 mg PO DAILY #30 tabs 10/04/22 Rx spironolactone 25 mg tablet 25 mg PO DAILY #30 tabs 10/04/22 Rx Allergies Allergy/AdvReac Type Severity Reaction Status Date / Time No Known Allergies Allergy V
[2022-10-03] MEDS: ACETAMINOPHEN 325 MG TABLET 650 MG PO ×2 (11:44→16:51)
[2022-10-03] MEDS: ONDANSETRON INJ 4 MG/2 ML VIAL IV PUSH (16:48)
[2022-10-03] MEDS: traMADol HCL (*CRX) 50 MG TABLET PO (21:51)
[2022-10-04] VITALS: BP 103/71; PULSE 94; RESP 17; TEMP 36.1; O2SAT 96
[2022-10-04] MEDS: ONDANSETRON INJ 4 MG/2 ML VIAL IV PUSH (04:51)
[2022-10-04] MEDS: traMADol HCL (*CRX) 50 MG TABLET PO (05:00)
[2022-10-04 05:13] LABS: Hematocrit 35.3 % (40.0-54.0); Hemoglobin 10.1 g/dL (14.0-18.0); Mean Corpuscular HGB Conc 28.6 g/dL (32.0-36.0); Mean Corpuscular Hemoglobin 20.9 pg (27.0-31.0); Mean Corpuscular Volume 72.9 fL (78.0-102.0); Mean Platelet Volume 9.8 fl (8.7-11.0); Platelet Count Result 360 K/mm3 (150-420); Red Blood Count 4.84 M/mm3 (4.70-6.10); Red Cell Distribution Width 22.3 % (11.6-14.4)
[2022-10-04] MEDS: LEVALBUTEROL NEB 1.25 MG/3 ML INHALATION ×2 (05:13→12:17)
[2022-10-04 05:14] VITALS: PULSE 98; RESP 20; O2SAT 98
[2022-10-04 05:33] LABS: Anion Gap 11 mmol/L (8-16); Blood Urea Nitrogen 47 mg/dL (7-18); Calcium 7.9 mg/dL (8.5-10.1); Carbon Dioxide 25 mmol/L (21-32); Chloride 102 mmol/L (98-108); Estimated CRCL calculation 48 ml/min; Estimated Glomerular Filt Rate 47; Glucose 124 mg/dL (70-99); NT Pro B Type Natriuretic Pept 14561 pg/mL (0-125); Osmolality Calculated 299 mOsm/kg (285-295); Potassium 4.3 mmol/L (3.5-5.1); Sodium 138 mmol/L (136-145)
--- NOTE | 2022-10-04 07:33 | PM.DS ---
DS: Admitting Diagnosis Discharge Date 10/04/2022 Admitting Diagnosis Chronic wounds, Dehydration, noncompliance, recreational drug use ,congestive heart failure DS: Discharge Diagnosis Discharge Diagnosis (1) Leg wound, right: Code(s): S81.801A - Unspecified open wound, right lower leg, initial encounter Status: Acute Assessment and Plan: ordered oral antibiotic to ensure that pseudomonas was covered daily dressing change and ordered home health (2) Acute exacerbation of CHF (congestive heart failure): Qualifiers: Heart failure type: unspecified Qualified Code(s): I50.9 - Heart failure, unspecified Code(s): I50.9 - Heart failure, unspecified Status: Acute Assessment and Plan: oral lasix ordered made sure all of patient medication has been ordered into the pharmacy (3) Hypokalemia: Code(s): E87.6 - Hypokalemia Status: Acute Assessment and Plan: resolved (4) Drug abuse: Code(s): F19.10 - Other psychoactive substance abuse, uncomplicated Status: Acute Assessment and Plan: discussed drug avoidance pt not DS: Summary Hospital Course Reason for hospitalization: dehydration, hypoxia, Weakness , shortness of breath Hospital Course: this is a 62-year-old male that presented to the emergency room with hypoxia some congestive heart failure and increased shortness of breath. Patient is noncompliant with medications and has had not had any refills admit on medication for over 2-1/2 weeks cording to patient he can not make it to his doctor's appointment nodule not refill medication misuse number points. Patient uses recreational drugs occasionally per patient. While here patient was restarted on his blood pressure medicine, anticoagulation, as well as his Lasix to help diurese him why he was here. Patient was not on oxygen while he was here patient refused physical therapy and refused penitentiary placement. Mr. Fernández informed me that he had home health that was assisting with his dressing changes but his girlfriend and he changes his own dressing I did review some of home health and the wound clinics reports about patient possibly has some Pseudomonas noted in his wound. I did order him Cipro as Pseudomonas coverage is included within the medication although patient has peripheral vascular disease which is concerning as doing that if he has enough circulation for this wound to heal. I have ordered for home health to come in and evaluate patient for dressing changes and patient to follow-up with his primary care provider all medications have been reordered to pharmacy for refills. Dressing changes been completed prior to his discharge patient shortness of breath has since resolved at times although he says he still has some but he is at his baseline Time Spent with Patient Time attestation: Total time spent providing and/or coordinating discharge services: Exam Const: General: no acute distress Orientation/consciousness: patient oriented x3 Limitations: no limitations and physical limitations HENMT: Head: normal to inspection Eyes: Conjunctivae: conjunctivae normal Neck: Neck: normal visual inspection, no lymphadenopathy and no meningeal signs Chest: Chest palpation & inspection: normal inspection of the chest Resp: Effort & Inspection: normal respiratory effort Cardio: Rate: regular rate : General: Yes no CVA tenderness Male General Exam: Yes normal external exam Urinary Catheter: Urinary Catheter: patent and draining Back/Spine/Pelvis: Back: no CVA tenderness Skin: General skin exam: normal color Rashes: no rashes Neuro: General: patient oriented x3, moves all extremities and no meningeal signs Extrem: General: normal to inspection Psych: Mental Status: mental status grossly normal DS: Data Data Completed and Pending Labs on day of discharge: Labs from last 24 hours 10/04/22 04:50 WBC 1
[2022-10-04 08:00] VITALS: BP 100/70; PULSE 71; RESP 14; TEMP 35.8; O2SAT 99
[2022-10-04 08:58] VITALS: PULSE 97
[2022-10-04] MEDS: SPIRONOLACTONE 25 MG TABLET PO (08:58)
[2022-10-04] MEDS: METOPROLOL TARTRATE 25 MG TABLET PO (08:58)
[2022-10-04] MEDS: ACETAMINOPHEN 325 MG TABLET 650 MG PO (08:58)
[2022-10-04] MEDS: RIVAROXABAN 10 MG TABLET 20 MG PO (08:58)
[2022-10-04] MEDS: FUROSEMIDE INJ 20 MG/2 ML VIAL IV PUSH (08:58)
[2022-10-04 12:18] VITALS: PULSE 123; RESP 18; O2SAT 100
--- NOTE | 2022-10-04 12:18 | PC.NURSE ---
patient refused to stand for therapy
[2022-10-04 12:33] VITALS: PULSE 82; RESP 18
--- NOTE | 2022-10-04 15:02 | PCNDS ---
Patient consumed [ ]% of [f his/her] [ ] diet without complaints status post [ ]. Weight remained stable during stay. [f he/she c] was discharged [ ]
--- NOTE | 2022-10-04 15:03 | PC.NURSE ---
reviewed discharge instructions with patient. Medications faxed and verified at patient pharmacy. additional wound care supplies sent with patient. Patient began asking for ice cream and extra fluids as soon as he was made aware of discharges. Asked for additional supplies beyond what was supplied. Stated he was unable to sit up independently or dress himself. Clothes provided for patient. Assisted with dressing. Paperwork signed. Waiting for [facility] transit arrival
--- NOTE | 2022-10-04 16:05 | PC.NURSE ---
Patient required minimal assist into wheelchair. taken to [facility] Transit bus. Once again asked if he could keep the wheelchair. Assist onto bus and into seat. All paperwork and belonging returned to patient-including phone and laptop
--- NOTE | 2022-10-12 11:09 | PC.NURSE ---
Unable to contact for discharge call back.
== END 2022-10-04 15:50 | disposition home health service (06) ==
LOC: CHSED 16:15 → CHS2ND 16:24
PROVIDERS: Nurse Practitioner Family; Admitting Provider Internal Medicine; Emergency Provider Emergency Medicine; Visit Provider Internal Medicine
DX: I50.9 Heart failure, unspecified (principal); N17.9 Acute kidney failure, unspecified; I25.10 Atherosclerotic heart disease of native coronary artery without angina pectoris; I48.20 Chronic atrial fibrillation, unspecified; E87.6 Hypokalemia; E11.51 Type 2 diabetes mellitus with diabetic peripheral angiopathy without gangrene; L89.899 Pressure ulcer of other site, unspecified stage; J44.9 Chronic obstructive pulmonary disease, unspecified; F19.10 Other psychoactive substance abuse, uncomplicated; F41.9 Anxiety disorder, unspecified; Z20.822 Contact with and (suspected) exposure to COVID-19; Z79.01 Long term (current) use of anticoagulants; Z95.5 Presence of coronary angioplasty implant and graft; Z87.891 Personal history of nicotine dependence
CPT/HCPCS: 36415; 71045; 71275; 80048; 80053; 81003; 83735; 83880; 84484; 85025; 85027; 85380; 85610; 85730; 87040; 87637; 93005; 94640; 96374; 96375; 96376; 99285; A9270; G0378; J1940; J2405; J2930; Q9967

== ENCOUNTER 2022-10-12 17:20 | Observation (INO) | payer OTHER, SELFPAY ==
[2022-10-12] VITALS (11 sets, daily range): BP systolic 90–140; BP diastolic 50–90; PULSE 96–146; RESP 16–22; TEMP 36.6–38.2; O2SAT 96–100
--- NOTE | ~2022-10-12 | CT_ITS ---
EXAMINATION: CT abdomen pelvis w con DATE: 10/12/2022 20:11 INDICATION: Left inguinal pain several wks. Left buttock/hip wound. TECHNIQUE: Computed tomography (CT) of the abdomen and pelvis was performed with 100 mL Omnipaque-350 intravenous contrast. Automated exposure control and iterative reconstruction technique were employe d. The dose-length product was 744.85 mGy-cm. COMPARISON: None. FINDINGS: Lower thorax: Cardiomegaly. Mild bibasilar atelectasis/scar. Liver: Normal. Biliary/Gallbladder: Dilated. Small dependent gallstones. No bile duct dilation. Pancreas: No mass or duct dilation. Spleen: Normal. Adrenals:No mass. Kidneys: Multiple nonobstructing left-sided calculi. Simple left renal cyst. Moderate bilateral perin ephric stranding. Bilateral cortical atrophy and scarring. GI tract: The rectum is dilated to 8.9 cm, without significant wall thickening or inflammatory change . Large volume of colonic stool. Normal appendix. Mesentery/Peritoneum: No ascites, mass, or free air. Retroperitoneum: No mass. Pelvis: Dilated urinary bladder with wall thickening. Soft Tissues: Soft tissues and body wall unremarkable. Bones: No acute osseous finding. IMPRESSION: Fecal impaction. No evidence of stercoral colitis. Bladder wall thickening may be secondary to outlet compromise or cystitis. Reviewed, dictated and finalized at location K.
--- NOTE | 2022-10-12 18:42 | ED.ABDPAIN ---
HPI - Abdominal Pain General Chief Complaint: Abdominal Pain Time Seen by Provider: 10/12/22 17:30 Source: patient, EMS and RN notes reviewed Mode of arrival: EMS Limitations: no limitations History of Present Illness HPI narrative: patient call ambulance because he was having abdominal pain in his left groin. He said has been going on for weeks but it got worse since this morning. He says he has a history of an inguinal hernia. He was just discharged from here 8 days ago. He also has a chronic infection in his feet and he has contraction flexures of his lower extremities. He is draining brown pus that smells like Pseudomonas from his left foot greater than the right. He says that home health has been in to change his dressings but the dressings do not look new. He is supposedly on ciprofloxacin but he has a history of medication noncompliance. MD elicited complaint: abdominal pain Pertinent past history: other ( inguinal hernia) Onset (ago): week(s) (1-3) Pain Consistency: other ( worse since this morning) Location: groin (left) Severity: moderate Quality: aching and dull Radiation: none Migration to: no migration Exacerbating factors: movement Relieving factors: nothing Associated symptoms: denies other symptoms Related Data Allergies Allergy/AdvReac Type Severity Reaction Status Date / Time No Known Allergies Allergy Verified 10/12/22 18:51 [facility] Past Medical History Medical History Atrial fibrillation Chronic anticoagulation Confusion associated with infection Congestive heart failure COPD (chronic obstructive pulmonary disease) Coronary artery disease Hypotension Type 2 diabetes mellitus Weakness generalized Surgical History Surgical History No pertinent past surgical history Family History Family History Father Acute myocardial infarction Mother Starvation Sibling Suffocation due to injury of air passages Social History Social History Smoking packs per day: 5 Smoking cigarettes per day: 100.0 Years smoked: 5 Smoking pack-years: 25.00 Smoking status: Former smoker Second hand tobacco smoke exposure: Yes Alcohol intake: former Substance use: current Substance use type: amphetamines Other substance usage details: states has been clean for over 1 mth Lack of Transportation: YES Lack of Food: Sometimes True Current Housing: I Have Housing Concerned About Future Housing: No Difficulty Paying Gas/Electric Bills: YES Difficulty Paying for Meds: YES Currently Unemployed: No Education: High School Diploma/GED Difficulty w/ Childcare or Family Care: No Living arrangements: alone Spiritual care concerns: No Exam Const: General: no acute distress, alert and ill appearing chronically Nutritional Appearance: well nourished Orientation/consciousness: patient oriented x3 Limitations: physical limitations HENMT: Head: normal to inspection Ears: external ears normal Face/Nose/Sinus: Normal external nose present Face and sinus: normal facial exam Mouth: Yes moist mucous membranes Eyes: Conjunctivae: conjunctivae normal Pupils: Equal, round and reactive pupils present EOM: EOMs intact bilaterally Neck: Neck: normal visual inspection Resp: Effort & Inspection: normal respiratory effort Auscultation: clear to auscultation bilaterally Cardio: Rate: tachycardic Rhythm: regular rhythm GI: GI Palp: Yes Soft to palpation, Yes Tenderness to palpation present (GI) ( moderate left groin) and Yes Guarding due to palpation present (GI) ( left groin) Auscultation: normal bowel sounds Back/Spine/Pelvis: Cervical Spine: cervical ROM normal Thoracic/Lumbar Spine: thoraco-lumbar ROM normal Skin: General skin exam: normal color, elasticity normal and turgor n
[2022-10-12 18:49] LABS: Hematocrit 38.8 % (40.0-54.0); Hemoglobin 11.1 g/dL (14.0-18.0); Mean Corpuscular HGB Conc 28.6 g/dL (32.0-36.0); Mean Corpuscular Hemoglobin 20.5 pg (27.0-31.0); Mean Corpuscular Volume 71.7 fL (78.0-102.0); Mean Platelet Volume 8.6 fl (8.7-11.0); Platelet Count Result 371 K/mm3 (150-420); Red Blood Count 5.41 M/mm3 (4.70-6.10); Red Cell Distribution Width 22.3 % (11.6-14.4); White Blood Count 23.5 K/mm3 (4.8-10.8)
[2022-10-12 18:51] LABS: Alanine Aminotransferase 54 U/L (16-63); Alkaline Phosphatase 105 U/L (46-116); Anion Gap 11 mmol/L (8-16); Aspartate Amino Transferase 35 U/L (15-37); Bilirubin,Total 1.6 mg/dL (0.00-1.00); Blood Urea Nitrogen 16 mg/dL (7-18); CRP > 25.0 mg/dL (0.0-0.9); Calcium 8.2 mg/dL (8.5-10.1); Carbon Dioxide 25 mmol/L (21-32); Chloride 100 mmol/L (98-108); Estimated Glomerular Filt Rate > 60; Glucose 107 mg/dL (70-99); Lactic Acid Reflex 2.2 mmol/L (0.4-2.0); Osmolality Calculated 283 mOsm/kg (285-295); Potassium 3.5 mmol/L (3.5-5.1); Sodium 136 mmol/L (136-145); Total Protein 8.3 g/dL (6.4-8.2)
[2022-10-12 18:53] LABS: Band Neutrophils Percent 0 % (0-6); Basophils Percent Manual 0 % (0-1); Eosinophils Absolute Manual 0.23 K/mm3 (0.02-0.5); Eosinophils Percent Manual 1 % (1-6); Lymphocytes Absolute Manual 0.47 K/mm3 (1.1-4.5); Lymphocytes Percent Manual 2 % (18-44); Monocytes Percent Manual 3 % (3-9); Neutrophils Absolute Manual 22.09 K/mm3 (1.3-6.7); Neutrophils Percent Manual 94 % (46-73); Total Cells Counted 100
[2022-10-12 18:54] LABS: Platelet Estimate Adequate (Adequate)
[2022-10-12] MEDS: HYDROmorphone HCL INJ (*CRX) 2 MG/ML VIAL 1 MG IV PUSH (19:37)
[2022-10-12] MEDS: LACTATED RINGERS 1,000 ML 999 ML IV CONT (19:45)
[2022-10-12 20:56] LABS: Appearance Urine Clear (Clear); Bilirubin Urine Negative (Negative); Blood Urine Negative (Negative); Color Urine Yellow (Yellow); Glucose Urine UA Negative (Negative); Ketones Urine Negative (Negative); Leukocyte Esterase Ur Negative LEU/UL (Negative); Nitrate Urine Negative (Negative); Protein Urine 1+ (Negative); pH Urine 6.5 (5.0-8.0)
[2022-10-12 21:01] LABS: Add Urine Microscopic? YES; RBC Urine 0-2 /hpf (0-2); WBC Urine 0-3 /hpf (0-3)
[2022-10-12 21:02] LABS: Bacteria Urine Trace /hpf
[2022-10-12 21:46] LABS: Reflex Lactic Acid Yes or No Add Lactic
[2022-10-12] MEDS: GABAPENTIN 100 MG CAPSULE PO (21:57)
[2022-10-12] MEDS: BISACODYL 10 MG SUPPOSITORY RECTAL (21:57)
[2022-10-12] MEDS: QUEtiapine FUMARATE 25 MG TABLET PO (21:58)
[2022-10-12] MEDS: METOPROLOL TARTRATE 25 MG TABLET PO (21:58)
[2022-10-12] MEDS: SENNA/DOCUSATE SODIUM TABLET 1 TAB PO (22:14)
--- NOTE | 2022-10-12 22:34 | ADMGEN ---
This patient, Torrey Fernández, was admitted to 2nd Floor Room 205-2. Patient oriented to hospital policies and general routines including ID bracelet, bed and alarms, visiting hours, pain management, procedures, bathroom and other care routines, personal items, smoking policy, room service/diet, and visiting hours. Information on how to activate the Rapid Response Team has been discussed. Patient are encouraged to report perceived risks to care and to ask questions if they do not understand what they are told or what they should do.
--- NOTE | 2022-10-12 23:22 | PC.NURSE ---
Deejay Feliz NP, notified of pt's elevated heart rate; New orders received and noted.
--- NOTE | 2022-10-12 23:48 | ECG_ITS ---
Measurements Intervals Macy Rate: 127 P: ME: 0 QRS: -28 QRSD: 117 T: 138 QT: 331 QTc: 482 Interpretive Statements ATRIAL FIBRILLATION WITH RAPID VENTRICULAR RESPONSE INCOMPLETE LEFT BUNDLE BRANCH BLOCK DELAYED PRECORDIAL R/S TRANSITION ST-T WAVE ABNORMALITY IN HIGH LATERAL LEADS- CONSIDER ISCHEMIA ABNORMAL ECG COMPARED TO ECG 10/02/2022 13:18:45 HEART RATE HAS INCREASED Electronically Signed On 10-13-2022 6:48:49 CDT by Nish Lock D.O.
[2022-10-12] MEDS: METOPROLOL TARTRATE INJ 5 MG/5 ML VIAL IV PUSH (23:54)
--- NOTE | 2022-10-12 23:54 | PC.NURSE ---
Pt given metoprolol 5 mg IVP as ordered.
--- NOTE | 2022-10-13 00:08 | PC.NURSE ---
Deejay Feliz NP notified of results of the EKG; New orders received and noted.
[2022-10-13] MEDS: SODIUM CHLORIDE 0.9% IV 1,000 ML 999 ML IV CONT (00:13)
[2022-10-13 00:52] LABS: Troponin I 30.7 ng/L (0.00-60.4)
[2022-10-13 01:00] VITALS: BP 104/60; PULSE 127; RESP 20
[2022-10-13] MEDS: SODIUM CHLORIDE 0.9% IV 1,000 ML 100 ML IV CONT (01:00)
[2022-10-13] MEDS: AMIODARONE 360 MG/D5W 200 ML 360 MG/200 ML BAG 33.33 MG IV CONT (01:27)
--- NOTE | 2022-10-13 01:27 | PC.NURSE ---
Amiodarone 360 mg IV infusing as ordered.
[2022-10-13] MEDS: LORazepam INJ (*CRX) 2 MG/ML VIAL 0.5 MG IV PUSH (01:41)
--- NOTE | 2022-10-13 01:41 | PC.NURSE ---
Pt given Ativan 0.5 mg IVP to relieve pt's agitation and restlessness.
--- NOTE | 2022-10-13 01:46 | PC.NURSE ---
pt has begun to start yelling out. when asking patient what he needs he says he is just yelling and we are nice. IV ativan being given at this time for anxiety/restlessness.
[2022-10-13] MEDS: VANCOMYCIN 1,000 MG/NS 250 ML BAG 250 MG IVPB ×2 (02:01→02:54)
--- NOTE | 2022-10-13 02:10 | PC.NURSE ---
blood presssure 80/50 HR 130 monitor A-Fib. N.P Cliff Feliz notified of these vitals. and patients condition. no new orders received.
[2022-10-13 04:00] VITALS: BP 82/50; PULSE 114; PULSE 125; RESP 20; TEMP 36.1; O2SAT 91
[2022-10-13 05:14] LABS: Hematocrit 37.3 % (40.0-54.0); Hemoglobin 9.9 g/dL (14.0-18.0); Mean Corpuscular HGB Conc 26.5 g/dL (32.0-36.0); Mean Corpuscular Hemoglobin 20.5 pg (27.0-31.0); Mean Corpuscular Volume 77.4 fL (78.0-102.0); Mean Platelet Volume 9.3 fl (8.7-11.0); Platelet Count Result 258 K/mm3 (150-420); Red Blood Count 4.82 M/mm3 (4.70-6.10); Red Cell Distribution Width 22.4 % (11.6-14.4)
--- NOTE | 2022-10-13 05:20 | PC.NURSE ---
Critical WBC of 28.7 called in by lab
[2022-10-13 05:32] LABS: Alanine Aminotransferase 50 U/L (16-63); Albumin Level 2.4 g/dL (3.4-5.0); Alkaline Phosphatase 87 U/L (46-116); Anion Gap 16 mmol/L (8-16); Aspartate Amino Transferase 43 U/L (15-37); Bilirubin,Total 1.4 mg/dL (0.00-1.00); Blood Urea Nitrogen 22 mg/dL (7-18); Calcium 7.6 mg/dL (8.5-10.1); Carbon Dioxide 17 mmol/L (21-32); Chloride 100 mmol/L (98-108); Estimated Glomerular Filt Rate 34; Glucose 95 mg/dL (70-99); Osmolality Calculated 279 mOsm/kg (285-295); Potassium 4.3 mmol/L (3.5-5.1); Sodium 133 mmol/L (136-145); Total Protein 6.9 g/dL (6.4-8.2)
--- NOTE | 2022-10-13 05:35 | PC.NURSE ---
Deejay Feliz NP, notified of critical WBC of 28.7; No new orders at this time.
--- NOTE | 2022-10-13 06:02 | PC.NURSE ---
Respiratory therapy, ER nurse and technical services representative here for rapid response here; CPR started at this time
--- NOTE | 2022-10-13 06:05 | PC.NURSE ---
Dr. Mantilla here for code
--- NOTE | 2022-10-13 06:10 | PC.NURSE ---
Deejay Feliz NP notifiied of pt's deterioration and rapid response in progress; She said she would be coming in.
--- NOTE | 2022-10-13 06:20 | PC.NURSE ---
CPR in progress; Pt given epinephrine IVP
--- NOTE | 2022-10-13 06:25 | PC.NURSE ---
Pt given epinephrine IVP and CPR continues. Femerol pulse felt at this time.
--- NOTE | 2022-10-13 06:31 | PC.NURSE ---
Pt intubated successfully; Breath sounds heard on both sides
--- NOTE | 2022-10-13 06:33 | PC.NURSE ---
CPR remains in progress; Pt given epinephrine IVP.
--- NOTE | 2022-10-13 06:40 | PC.NURSE ---
Pt continues to be unresponsive and CPR continues. Pt given epinephrine IVP
--- NOTE | 2022-10-13 06:42 | PC.NURSE ---
Pt remains unresponsive and no pulse felt; CPR stopped and pt pronounced
--- NOTE | 2022-10-13 06:47 | PM.CCN ---
Critical Care Event Note Summary Code activated: Yes Narrative: This case had a high probability of a clinically significant, sudden, or life threatening deterioration of this patient's condition which required my full and direct attention, intervention and personal management. Critical care time: 30 - 74 mins
--- NOTE | 2022-10-13 06:47 | PDCODEBLUE ---
Code Blue Note Code Blue Note Time Arrived at Code Blue: 0610 Airway Management: Pt intubated during resuscitation Chest Compressions: In process on arrival to bedside Result of Code Blue: Pt Code Blue Summary: Patient had been on amiodarone earlier in the evening because of a atrial fibrillation with rapid ventricular response. A rapid response call was put out as patient began having agonal breathing and bradycardia. Jessie I have with CPR in progress they are just getting the CPR board underneath his body. He was pulseless with no electrical activity on the monitor. CPR was continued and ACLS protocols followed with multiple doses of epinephrine x4. I initially tried to intubate him using a MAC 3, initially there was no suction once that was in place I was able to suction his posterior pharynx and then the glide scope arrived. I was able to intubate him using his 7.5 ET tube using the glide scope. Placement is confirmed as I watch the ET tube go over the vocal cords and auscultation showed equal breath sounds. Tube is secured in place CPR is continued at 6:42 a.m. another rhythm check and pulse check showed no electrical activity no spontaneous breathing. Time of was called at 6:42 a.m..
[2022-10-13 06:50] VITALS: O2SAT 0
--- NOTE | 2022-10-13 06:50 | PC.NURSE ---
Deejay Feliz NP, notified of pt's passing.
--- NOTE | 2022-10-13 06:52 | PM.DDS ---
Discharge Summary Date and Time Date of : 10/13/22 Time of : 06:11 (611) Provider Pronounced By: Dr. Mantilla Probable Cause of Probable Cause of : sepsis Summary Hospital Course: refer to er notes this provider did not see patient Additional Data Was code activated?: Yes Hospice patient?: No
--- NOTE | 2022-10-13 06:58 | PC.NURSE ---
0531- this nurse went into this patients room and noted that his IV site had infiltrated. notified other nurse and removed the Iv from the RFA, this was running amiodarone. 0555 new site obtained in the LFA per [place] Doan , at this time the HOB was laid down to 35% angle to reposition patient when agonal breathing noted. sternal rub attmepted, pt did open his eyes once then closed them. no other response. attempted stenal rub again no response. pupils were fixed and dilated, no blood pressure noted. 0600 rapid response called radial pulse palpable, agonal breaths still noted. see rapid respose/code note for further notes
--- NOTE | 2022-10-13 07:07 | PC.NURSE ---
Attempted to notify Karen Bowser, friend of patient but no answer. Message left on pt's answering service
--- NOTE | 2022-10-13 07:40 | PC.NURSE ---
MTS returned call and patient will not be a candidate, did send to [facility]
--- NOTE | 2022-10-13 07:55 | PC.NURSE ---
[facility] returned call and patient will not be a candidate, OK to release
--- NOTE | 2022-10-13 08:00 | PC.NURSE ---
Daughter Sue attempted to contact by phone, message left to call hospital
--- NOTE | 2022-10-13 08:44 | PM.DDS ---
Discharge Summary Date and Time Date of : 10/13/22 Time of : 06:11 (611) Provider Pronounced By: Dr. Mantilla Probable Cause of Probable Cause of : Sepsis, Summary Hospital Course: According to chart patient was on the floor and was receiving IVF, IV antibiotics when his blood pressure dropped , Heart rate dropped ER doctor arrived CPR had been initiated. Patient labs had worsening he had stopped breathing and they were unable to get a heart beat or breathing reinitiated . Additional Data Confirmation of as documented by pronouncing clinician: Pupillary Reflex, Palpable Pulses, Response to Stimuli, Heart Tones and Breath Sounds Name of Provider Notified: Deejay Feliz NP Time Provider Notified: 06:47 Provider Requests Autopsy: No Family Requests Autopsy: No Date [facility] Notified of : 10/13/22 Time [facility] Notified of : 06:52
--- NOTE | 2022-10-13 08:57 | PC.NURSE ---
Karen contacted and will contact patient son Michael regarding home and will call us back
--- NOTE | 2022-10-13 09:54 | PC.NURSE ---
son Michael called back and they are on their way here, patient prepared for family viewing, family reports will decide once here how to proceed, states have questions on how to proceed.
--- NOTE | 2022-10-13 10:40 | PC.NURSE ---
Family here to see patient, advised to take their time and to let us know which home he will go to
--- NOTE | 2022-10-13 11:10 | PC.NURSE ---
[facility] of [facility] contacted per family request
--- NOTE | 2022-10-13 12:19 | PC.NURSE ---
body released to home
== END 2022-10-13 06:42 | disposition expired ==
LOC: CHSED 19:44 → CHS2ND 21:09
PROVIDERS: Nurse Practitioner; Admitting Provider Internal Medicine; Emergency Provider Emergency Medicine; Visit Provider Internal Medicine
DX: A41.52 Sepsis due to Pseudomonas (principal); I48.20 Chronic atrial fibrillation, unspecified; I50.9 Heart failure, unspecified; I25.10 Atherosclerotic heart disease of native coronary artery without angina pectoris; I46.9 Cardiac arrest, cause unspecified; E11.9 Type 2 diabetes mellitus without complications; J44.9 Chronic obstructive pulmonary disease, unspecified; K56.41 Fecal impaction; Z79.01 Long term (current) use of anticoagulants
CPT/HCPCS: 31500; 36415; 74177; 80053; 81001; 83605; 84484; 85025; 85027; 86140; 87040; 87070; 87147; 87186; 87205; 93005; 96361; 96365; 96366; 96367; 96368; 96375; 96376; 99285; A9270; G0378; J0171; J0282; J0696; J0713; J1170; J2060; J3370; J7030; J7120; Q9967